=== PATIENT | male | born 1955 | race Caucasian/White ===

== ENCOUNTER 2020-03-15 16:30 | Inpatient (IN) | payer OTHER, SELFPAY ==
[~2020-03-15] VITALS: Ht 165.1 cm; Wt 71.7 kg
--- NOTE | 2020-03-15 16:36 | NUR ---
Patient to ER bed 07 to gown for evaluation. Side rails up.
--- NOTE | 2020-03-15 16:40 | NUR ---
ER at bedside examining patient.
--- NOTE | 2020-03-15 16:42 | NUR ---
pt arrives from via BLS from home for cough x 2 months, w/ orange sputum x 2 days. Pt states that his MD asked him to take Robitussin. Pt denies any fever. Arrived stating that he has a pain pump w/ med that about run out. Current o2 is 94% on RA
[2020-03-15 16:46] VITALS: BP_SYST 156
--- NOTE | 2020-03-15 16:50 | NUR ---
# 22 gauge angiocath placed to left hand. Use of asceptic technique. Opsite placed over site. Blood return noted. Blood for lab drawn from site. Flushed with 10 cc of normal saline. No evidence of infiltration noted. Patient tolerated well.
[2020-03-15] MEDS ORDERED: VANCOMYCIN HCL 1,000 MG in NS 250 ML IV ONE (17:00)
[2020-03-15] MEDS ORDERED: NACL 0.9% 2,000 ML IV ONE (17:00)
--- NOTE | 2020-03-15 17:30 | NUR ---
Levaquin and NS infusing
[2020-03-15 17:50] LABS: WHITE BLOOD COUNT (AUTO) 18.1 K/uL (4.8-10.8)
[2020-03-15 17:56] LABS: HEMATOCRIT 27.3 % (36-54); MEAN CORPUSCULAR HEMOGLOBIN 31 pg (27-31); MEAN CORPUSCULAR HGB CONC 33 % (32-36); MEAN CORPUSCULAR VOLUME 94 fL (79.0-98.0); RED BLOOD CELL COUNT(AUTO) 2.92 MIL/uL (4.2-6.2); RED CELL DISTRIBUTION WIDTH 16.8 % (9.0-15.0)
[2020-03-15 17:58] LABS: PLATELET COUNT (AUTO) 1065 K/uL (130-430)
[2020-03-15 17:59] LABS: CREATININE 0.6 mg/dL (0.55-1.30)
[2020-03-15 18:02] LABS: POTASSIUM 2.9 mmol/L (3.5-5.1)
[2020-03-15 18:04] LABS: ALBUMIN 1.9 g/dL (3.4-4.8); TOTAL BILIRUBIN 0.3 mg/dL (0.0-1.0)
[2020-03-15 18:13] LABS: BAND % (MANUAL) 1 % (0-6); BASOPHILS % (MANUAL) 0 % (0-2); EOSINOPHILS % (MANUAL) 0 % (0-7); LYMPHOCYTES % (MANUAL) 10 % (20-46); MONOCYTES % (MANUAL) 5 % (0-11)
[2020-03-15] MEDS ORDERED: KCL 20 mEq in 100 mL (PREMIX) 100 ML IV ONE (18:15)
[2020-03-15] MEDS ORDERED: VANCOMYCIN HCL 1000 MG/VIAL IV ONE (18:32)
[2020-03-15 18:40] LABS: BILIRUBIN,URINE NEGATIVE (NEGATIVE); BLOOD, URINE NEGATIVE (NEGATIVE); CLARITY/URINE CLEAR (CLEAR); COLOR,URINE YELLOW (YELLOW); GLUCOSE,URINE NEGATIVE (NEGATIVE); KETONES,URINE NEGATIVE (NEGATIVE); LEUKOCYTE ESTERASE ,URINE NEGATIVE (NEGATIVE); NITRITE, URINE NEGATIVE (NEGATIVE); PROTEIN URINE NEGATIVE (NEGATIVE); UROBILINOGEN,URINE 0.2 (0.2-1.0)
--- NOTE | 2020-03-15 18:40 | NUR ---
Nuzhato currently infusing
--- NOTE | 2020-03-15 18:40 | NUR ---
Dr. Osborne at the bedside doing a rectal exam
--- NOTE | 2020-03-15 18:47 | NUR ---
Alize currently infusing
--- NOTE | 2020-03-15 19:20 | NUR ---
Care endorsed to Zan MATOS
--- NOTE | 2020-03-15 19:32 | NUR ---
called for a tele bed. Spoke w/ Chucky GARCIA, who stated that the CN is getting report and will call back w/ a bed assignment
[2020-03-15] MEDS ORDERED: TIZA4TAB11 PO (19:36)
[2020-03-15] MEDS ORDERED: LOP600 PO (19:36)
[2020-03-15] MEDS ORDERED: VENL37.55 PO (19:36)
--- NOTE | 2020-03-15 19:36 | NUR ---
Medication reconciliation completed with information provided by pt. Any prior medication reconciliation on file was reviewed and corrected.
--- NOTE | 2020-03-15 20:49 | NUR ---
Transfer to Tele via ACLS protocol. Licensed nurse present. IV present no signs or symptoms of infiltration.
--- NOTE | 2020-03-15 20:49 | NUR ---
Patient will be admitted to care of Dr. Galicia. Admitted to Tele unit. Will go to room 125. Belongings list completed. Complete and up to date summary report printed. SBAR report to be given at bedside with opportunity for questions.
--- NOTE | 2020-03-15 20:49 | NUR ---
ADMIT NOTE Received pt from ER to the floor with a diagnosis of PNEUMONIA. Admission process initiated. patient oriented to pain management, safety and call light-teach back done.
[2020-03-15 21:00] VITALS: BP_SYST 139
--- NOTE | 2020-03-15 21:00 | NUR ---
OPENING NOTE PATIENT A0X4. NO SIGNS OF RESPIRATORY DISTRESS NOTED. DENIES PAIN AND DISCOMFORT. BREATHING EVEN AND UNLABORED. ON ROOM AIR TOLERATING WELL, O2 SATURATION OF 97%. IV SITE, PATENCY NOTED. CALL LIGHT WITHIN REACH. PATIENT WAS EDUCATED TO USE CALL LIGHT WHEN ASSISTANCE IS NEEDED, PATIENT ABLE TO VERBALIZED UNDERSTANDING. BED LOCKED AND IN LOWEST POSITION. REFUSED BED ALARM, PATIENT WAS EDUCATED ON PURPOSE OF BED ALARM, PATIENT ABLE TO VERBALIZED UNDERSTANDING BUT STILL REFUSED. PATIENT AMBULATORY WITH STEADY GAIT. NEEDS ATTENDED. ISOLATION AND SAFETY PRECAUTIONS IN PLACE. WILL CONTINUE TO MONITOR PATIENT
[2020-03-15] MEDS ORDERED: NALOXONE HCL 0.4 MG/ML AMP (NARCAN) IVP PRN (21:15)
[2020-03-15] MEDS ORDERED: POTASSIUM CHLORIDE 20 MEQ TAB.PRT.SR PO ONE (21:15)
[2020-03-15] MEDS: AZITHROMYCIN 500 MG in NS 250 ML IV SCH (21:55)
[2020-03-15] MEDS ORDERED: AZITHROMYCIN 500 MG/VIAL (ZITHROMAX) IV ONE (21:58)
[2020-03-15] MEDS ORDERED: PIPERACILLIN/TAZOBACTAM 3.375 GM/VIAL (ZOSYN) IV ONE (21:58)
[2020-03-15 22:02] VITALS: BP_SYST 148
--- NOTE | 2020-03-15 23:14 | NUR ---
SPOKE WITH DR. COLEMAN SPOKE WITH DR. COLEMAN. MADE AWARE THAT BASED ON ASSESSMENT, PATIENT IS SEPSIS RISK. MD GAVE NEW ORDER. READ BACK ORDER.
[2020-03-15] MEDS ORDERED: NACL 0.9% 1,000 ML IV ONE (23:15)
--- NOTE | 2020-03-15 23:30 | NUR ---
VITAL SIGNS/ IV FLUID BOLUS VITAL SIGNS TAKEN AT THIS TIME. PATIENT AWAKE, WATCHING TV. AOX4. NO SIGNS OF RESPIRATORY DISTRESS NOTED. DENIES PAIN AND DISCOMFORT. ON ROOM AIR TOLERATING WELL, O2 SATURATION OF 99%. NS BOLUS HUNG AT THIS TIME. PATIENT WAS EDUCATED ON PURPOSE AND BENEFITS OF OV IVF BOLUS, PATIENT ABLE TO VERBALIZED UNDERSTANDING. CALL LIGHT WITHIN REACH. SCD'S OPERATING WELL. SAFETY PRECAUTIONS IN PLACE. WILL CONTINUE TO MONITOR PATIENT
[2020-03-15] MEDS: PIPERACILLIN/TAZO 3.375/DEX-IS 50 ML IV SCH (23:32)
[2020-03-15 23:45] VITALS: BP_SYST 148
[2020-03-16] VITALS: BP_SYST 122
[2020-03-16] MEDS ORDERED: NACL 0.9% 1,000 ML IV ONE
--- NOTE | 2020-03-16 01:07 | NUR ---
RN ROUNDS PATIENT ASLEEP AT THIS TIME. NO SIGNS OF RESPIRATORY DISTRESS AND DISCOMFORT NOTED. BREATHING EVEN AND UNLABORED. ON ROOM AIR, TOLERATING WELL. IVF INFUSING WELL. CALL LIGHT WITHIN REACH. SAFETY AND ISOLATION PRECAUTIONS IN PLACE. WILL CONTINUE TO MONITOR PATIENT.
--- NOTE | 2020-03-16 02:09 | NUR ---
RN ROUNDS PATIENT ASLEEP AT THIS TIME. NO SIGNS OF RESPIRATORY DISTRESS AND DISCOMFORT NOTED. BREATHING EVEN AND UNLABORED. ON ROOM AIR, TOLERATING WELL. CALL LIGHT WITHIN REACH. SAFETY AND ISOLATION PRECAUTIONS IN PLACE. WILL CONTINUE TO MONITOR PATIENT.
--- NOTE | 2020-03-16 04:14 | NUR ---
RN ROUND PATIENT AWAKE, NO SIGNS OF RESPIRATORY DISTRESS NOTED. DENIES PAIN AT THIS TIME BUT VERBALIZED THE NEED OF BREATHING TREATMENT TO LOOSEN UP HIS COUGH. RESPIRATORY THERAPIST MADE AWARE AT THIS TIME. CALL LIGHT WITHIN REACH. SAFETY PRECAUTIONS IN PLACE. WILL CONTINUE TO MONITOR PATIENT.
[2020-03-16] MEDS: ALBUTEROL SULFATE 0.083% 2.5 MG/3 ML VIAL.NEB INH PRN ×2 (04:31→15:24)
[2020-03-16] MEDS: PIPERACILLIN/TAZO 3.375/DEX-IS 50 ML IV SCH ×4 (05:21→23:52)
[2020-03-16 06:27] LABS: BASOPHILS % (AUTO) 0.1 % (0.0-2.0); EOSINOPHILS % (AUTO) 0.1 % (0.0-4.0); HEMATOCRIT 26.9 % (36-54); LYMPHOCYTES # (AUTO) 2.1 K/uL (1.0-5.5); LYMPHOCYTES % (AUTO) 13.8 % (20.5-51.5); MEAN CORPUSCULAR HEMOGLOBIN 32 pg (27-31); MEAN CORPUSCULAR HGB CONC 34 % (32-36); MEAN CORPUSCULAR VOLUME 94 fL (79.0-98.0); MONOCYTES # (AUTO) 1.2 K/uL (0.0-1.0); MONOCYTES % (AUTO) 7.7 % (1.7-9.3); NEUTROPHILS # (AUTO) 11.7 K/uL (1.8-7.7); NEUTROPHILS % (AUTO) 78.3 % (40.0-70.0); RED BLOOD CELL COUNT(AUTO) 2.86 MIL/uL (4.2-6.2); RED CELL DISTRIBUTION WIDTH 16.5 % (9.0-15.0); WHITE BLOOD COUNT (AUTO) 14.9 K/uL (4.8-10.8)
--- NOTE | 2020-03-16 06:34 | NUR ---
CLOSING NOTE PATIENT AWAKE, WATCHING TV. NO SIGNS OF RESPIRATORY DISTRESS AND DISCOMFORT NOTED. BREATHING EVEN AND UNLABORED, ON ROOM AIR, TOLERATING WELL. IV SITE, PATENCY NOTED. CALL LIGHT WITHIN REACH. SAFETY AND ISOLATION PRECAUTIONS IN PLACE. ALL NEEDS MET THROUGHOUT THE SHIFT. WILL CONTINUE TO MONITOR PATIENT UNTIL ENDORSE TO ONCOMING SHIFT NURSE FOR CONTINUITY OF CARE.
[2020-03-16 07:11] LABS: ALBUMIN 1.7 g/dL (3.4-4.8); CALCIUM 8.3 mg/dL (8.4-11.0); CREATININE 0.58 mg/dL (0.55-1.30); TOTAL BILIRUBIN 0.3 mg/dL (0.0-1.0)
--- NOTE | 2020-03-16 07:15 | NUR ---
OPENING NOTE RECEIVED SBAR FROM NIGHT RN, PATIENT IN BED, RESPIRATIONS EVEN, NON LABORED, BED IN LOW AND LOCKED POSITION, CALL LIGHT WITHIN REACH
[2020-03-16 07:42] LABS: PLATELET COUNT (AUTO) 931 K/uL (130-430)
--- NOTE | 2020-03-16 07:50 | NUR ---
PAGEHeena MONTAÑO PAGEHeena DYSON REGARDING CRITICAL LABS, POTASSIUM 2.9 AND PLATELETS 931 SPOKE WITH ELIZABETH
[2020-03-16 07:52] LABS: POTASSIUM 2.9 mmol/L (3.5-5.1)
[2020-03-16 07:59] VITALS: BP_SYST 158
--- NOTE | 2020-03-16 08:02 | NUR ---
NURSE NOTE OBTAINED VS, PATIENT COMPLAINING OF THE NOISE FROM THE AIR SYSTEM BOTHERING HIM, EDUCATED PATIENT REGARDING THE NECESSITY OF AIR SYSTEM, PATIENT VERBALIZED UNDERSTANDING, COMPLAINING OF FEELING ANXIOUS, EDUCATED PATIENT REGARDING DEEP BREATHING, PATIENT REQUESTING SOMETHING FOR ANXIETY
--- NOTE | 2020-03-16 08:15 | NUR ---
NURSE NOTE PATIENT COMPLAINING OF GENERALIZED PAIN, REQUESTING MEDICATION, REPOSITIONED PATIENT,
[2020-03-16] MEDS: Effexor 37.5 MG TAB PO SCH ×3 (08:30→20:38)
[2020-03-16] MEDS: HYDROcodone/ACETAMIN 5-325 MG TAB (NORCO/ VICODIN) PO PRN ×2 (08:30→14:13)
[2020-03-16] MEDS: GEMFIBROZIL 600 MG TABLET (LOPID) PO SCH ×2 (08:30→20:38)
[2020-03-16] MEDS: tiZANidine HCL 4 MG TABLET PO SCH ×3 (08:30→20:56)
--- NOTE | 2020-03-16 08:45 | NUR ---
NURSE NOTE RT BEDSIDE WITH PATIENT
--- NOTE | 2020-03-16 09:00 | NUR ---
NURSE NOTE SPOKE WITH DR. DOUGLAS REGARDING PATIENTS CRITICAL LABS OF POTASSIUM 2.9 AND PLATELETS OF 931, NEW ORDERS RECEIVED
--- NOTE | 2020-03-16 09:00 | NUR ---
HIGH ALERT NOTE: Called Dr. Reyes back at [phone] identified within the medical roster to verify physician authenticity.
--- NOTE | 2020-03-16 09:21 | NUR ---
NURSE NOTE SPOKE WITH DR DOUGLAS REGARDING PATIENTS REQUEST FOR ANXIETY MEDICINE, NEW ORDERS RECEIVED
[2020-03-16] MEDS ORDERED: LORazepam 1 MG TABLET PO PRN (09:30)
[2020-03-16] MEDS: ENOXAPARIN SODIUM 40 MG/0.4 ML SYRINGE SUBCUT SCH (09:40)
[2020-03-16] MEDS ORDERED: POTASSIUM CHLORIDE 40 MEQ in NS 250 ML IV ONE (10:00)
--- NOTE | 2020-03-16 10:00 | NUR ---
NURSE NOTE PATIENT SITTING IN CHAIR, RESPIRATIONS EVEN, NON LABORED, ASSISTED PATIENT TO AMBULATE TO BED, ADMINISTERED MEDICATIONS, BED IN LOW AND LOCKED POSITION, CALL LIGHT WITHIN REACH
[2020-03-16 11:30] VITALS: BP_SYST 111
--- NOTE | 2020-03-16 11:30 | NUR ---
MD ROUNDS DR DOUGLAS BEDSIDE EXAMINING PATIENT
--- NOTE | 2020-03-16 12:30 | NUR ---
NURSE NOTE PROVIDED PATIENT WITH LUNCH, PATIENT COMPLAINING THAT IV SITE IS BURNING WITH POTASSIUM INFUSION, IV SITE IS PATENT, DECREASED RATE TO 60ML/HR, EDUCATED PATIENT REGARDING THE CORRECT USE OF INCENTIVE SPIROMETER, PATIENT VERBALIZED UNDERSTANDING, AND WAS ABLE TO DEMONSTRATE CORRECT USAGE
--- NOTE | 2020-03-16 13:08 | NUR ---
NURSE NOTE PATIENT HAS AN IMPLANTED MEDICATION PUMP ON LEFT LOWER QUADRANT, PAGED SYNOVATION [phone], TO FIND OUT WHAT MEDICATIONS ARE BEING INFUSED Addendum: 03/16/20 at 1313 by Irena Huang RN IMPLANT IS LOCATED IN THE RIGHT LOWER QUADRANT
--- NOTE | 2020-03-16 14:42 | NUR ---
nurse note spoke with patients sureshece, Pao, she does not know which medications as being given through the implant
--- NOTE | 2020-03-16 14:47 | NUR ---
DC ISOLATION INFORMED DR DOUGLAS OF PATIENTS TWO NEGATIVE COVID RESULTS, OK TO DC ISOLATION
--- NOTE | 2020-03-16 14:49 | NUR ---
NURSE NOTE NOTIFIED RT THAT PATIENT IS REQUESTING A BREATHING TX, LUNGS, CLEAR, NO SHORTNESS OF BREATH, O2 SATURATION 98 ON ROOM AIR
[2020-03-16 15:36] VITALS: BP_SYST 140
--- NOTE | 2020-03-16 15:52 | NUR ---
NURSE NOTE PATIENT IN BED, RESPIRATIONS EVEN, NON LABORED, BED IN LOW AND LOCKED POSITION, CALL LIGHT WITHIN REACH, EYES CLOSED, IVF'S RUNNING ORDERED
--- NOTE | 2020-03-16 16:20 | NUR ---
NURSE NOTE PATIENT IN BED, EYES CLOSED, RESPIRATIONS EVEN, NON LABORED, BED IN LOW AND LOCKED POSITION, CALL LIGHT WITHIN REACH,
--- NOTE | 2020-03-16 17:08 | NUR ---
Dietitian Recommendations * Recommend continuing cardiac diet * Consider Ensure Enlive BID if PO intakes are less than 75% on average (ONS offers an additional 700 kcal/day, 40 gm protein/day) UMANG, KYLER Please refer to Nutrition Assessment for details. Addendum: 03/16/20 at [address] Amended: Links added.
--- NOTE | 2020-03-16 17:45 | NUR ---
NURSE NOTE PROVIDED PATIENT WITH DINNER, PATIENT SITTING IN BED, RESPIRATIONS EVEN, NON LABORED, BED IN LOW AND LOCKED POSITION, CALL LIGHT WITHIN REACH, DENIES ANY PAIN OR DISCOMFORT
[2020-03-16 19:09] LABS: CALCIUM 8.6 mg/dL (8.4-11.0); CREATININE 0.79 mg/dL (0.55-1.30); PHOSPHORUS 2.8 mg/dL (2.7-4.5); POTASSIUM 3.5 mmol/L (3.5-5.1)
--- NOTE | 2020-03-16 19:14 | NUR ---
CLOSING NOTE PROVIDED BEDSIDE SBAR TO NIGHT RN, PATIENT IN BED, CONTINUES TO REMAIN NAKED, BED IN LOW AND LOCKED POSITION, CALL LIGHT WITHIN REACH, RESPIRATIONS EVEN, NON LABORED, IV FLUSHED FREELY, SALINE LOCKED. ENDORSED CARE TO NIGHT RN Addendum: 03/16/20 at 1916 by Irena Huang RN IVF'S RUNNING DIRECTED, NOT SALINE LOCKED Addendum: 03/16/20 at 1920 by Irena Huang RN ENTERED IN ERROR PATIENT IS IN GOWN, NOT NAKED
[2020-03-16 19:50] VITALS: BP_SYST 151
--- NOTE | 2020-03-16 19:50 | NUR ---
INITIAL NOTE AT INITIAL ASSESSMENT, PATIENT IS RESTING IN BED, STABLE, NO SIGNS OF RESPIRATORY DISTRESS. PATIENT VERBALIZES TOLERABLE CHRONIC PAIN. PLAN OF CARE FOR THE EVENING IS COMMUNICATED WITH THE PATIENT. PATIENT DEMONSTRATES CORRECT USAGE OF CALL LIGHT AT THIS TIME. BED IS LOCKED, ALARMED, AND AT THE LOWEST LEVEL. FALL SAFETY EDUCATION PROVIDED. FALL, SAFETY, AND RESPIRATORY PRECAUTIONS WILL BE TAKEN THROUGHOUT THE SHIFT.
--- NOTE | 2020-03-16 20:10 | NUR ---
PAIN PUMP CONTENTS / DR. MISTY JAY WHO USUALLY DEALS WITH PATIENT'S PAIN PUMP HAS CALLED AT THIS TIME TO CLARIFY THE CONTENTS OF THE PAIN PUMP: MORPHINE 15 MG/ML, PHENTANYL CITRATE 0.075 MG/ML, BACLOFEN 350 MCG/ML, AND CLONIDINE 100 MG/ML. CONTENTS WERE READ BACK, AND VERIFIED.
[2020-03-16] MEDS: AZITHROMYCIN 500 MG in NS 250 ML IV SCH (20:38)
--- NOTE | 2020-03-16 21:50 | NUR ---
MED PASS NOTE SCHEDULED MEDICATIONS GIVEN AT THIS TIME, PATIENT TOLERATED WELL. CALL LIGHT IS PLACED WITHIN REACH. BED IS LOCKED, ALARMED, AND AT THE LOWEST LEVEL.
--- NOTE | 2020-03-16 23:50 | NUR ---
NEW IV PLACEMENT PATIENT'S IV IS NOTED TO BE INFILTRATED, OLD IV IS D/C, CATHETER TIP INTACT, NO SIGNS OF ACTIVE BLEED. NEW IV IS PLACED ON PATIENT'S LEFT FOREARM #20 GAUGE, 10 MLS NS FLUSHED WITH NO RESISTANCE OR PAIN. IV IS CHECKED TO BE PATENT, SECURED, AND LABELED WITH DATE AND TIME OF INSERTION.
[2020-03-17] VITALS: BP_SYST 145
--- NOTE | 2020-03-17 01:00 | NUR ---
NOTE PATIENT IS SLEEPING, STABLE, NO SIGNS OF RESPIRATORY DISTRESS. CALL LIGHT IS WITHIN REACH. BED IS LOCKED, ALARMED, AND AT THE LOWEST LEVEL.
--- NOTE | 2020-03-17 03:00 | NUR ---
NOTE PATIENT IS SLEEPING, STABLE, NO SIGNS OF RESPIRATORY DISTRESS. CALL LIGHT IS WITHIN REACH. BED IS LOCKED, ALARMED, AND AT THE LOWEST LEVEL.
--- NOTE | 2020-03-17 03:30 | NUR ---
PAIN NOTE PATIENT IS COMPLAINING OF PAIN, PRN MEDICATION IS GIVEN AT THIS TIME FOR PATIENTS PAIN COMPLAINT PER MD ORDERS. WILL REASSESS IF PRN MEDICATION GIVEN WAS EFFECTIVE. CALL LIGHT PLACED WITHIN REACH. BED IS LOCKED, ALARMED, AND AT THE LOWEST LEVEL.
[2020-03-17] MEDS: ACETAMINOPHEN 325 MG TABLET PO PRN ×2 (03:31→20:15)
[2020-03-17] MEDS: PIPERACILLIN/TAZO 3.375/DEX-IS 50 ML IV SCH ×4 (05:08→23:54)
--- NOTE | 2020-03-17 05:30 | NUR ---
NOTE PATIENT IS SLEEPING, STABLE, NO SIGNS OF RESPIRATORY DISTRESS. CALL LIGHT IS WITHIN REACH. BED IS LOCKED, ALARMED, AND AT THE LOWEST LEVEL.
[2020-03-17 06:23] LABS: BASOPHILS % (AUTO) 0.2 % (0.0-2.0); EOSINOPHILS % (AUTO) 0.3 % (0.0-4.0); HEMATOCRIT 23.9 % (36-54); HEMOGLOBIN 7.8 g/dL (14.0-18.0); LYMPHOCYTES % (AUTO) 19.6 % (20.5-51.5); MEAN CORPUSCULAR HEMOGLOBIN 31 pg (27-31); MEAN CORPUSCULAR HGB CONC 33 % (32-36); MEAN CORPUSCULAR VOLUME 94 fL (79.0-98.0); MONOCYTES # (AUTO) 1.1 K/uL (0.0-1.0); MONOCYTES % (AUTO) 7.5 % (1.7-9.3); NEUTROPHILS # (AUTO) 11.2 K/uL (1.8-7.7); NEUTROPHILS % (AUTO) 72.4 % (40.0-70.0); RED BLOOD CELL COUNT(AUTO) 2.54 MIL/uL (4.2-6.2); RED CELL DISTRIBUTION WIDTH 16.7 % (9.0-15.0); WHITE BLOOD COUNT (AUTO) 15.4 K/uL (4.8-10.8)
[2020-03-17 06:27] LABS: ALBUMIN 1.5 g/dL (3.4-4.8); CALCIUM 8.4 mg/dL (8.4-11.0); CREATININE 0.73 mg/dL (0.55-1.30); PHOSPHORUS 2.9 mg/dL (2.7-4.5); POTASSIUM 4.1 mmol/L (3.5-5.1); TOTAL BILIRUBIN 0.2 mg/dL (0.0-1.0)
--- NOTE | 2020-03-17 06:35 | NUR ---
CLOSING NOTE PATIENT SLEPT WELL THROUGHOUT THE SHIFT, NO SHORTNESS OF BREATH NOTED. AT THIS TIME, PATIENT IS RESTING IN BED, STABLE, NO SIGNS OF RESPIRATORY DISTRESS. CALL LIGHT IS WITHIN REACH. BED IS LOCKED, ALARMED, AND AT THE LOWEST LEVEL. FALL, SAFETY, AND RESPIRATORY PRECAUTIONS HAVE BEEN TAKEN THROUGHOUT THE SHIFT. WILL CONTINUE TO MONITOR UNTIL SHIFT REPORT IS GIVEN AT BEDSIDE TO AM NURSE.
--- NOTE | 2020-03-17 07:26 | NUR ---
Opening Note patient in bed resting, a/o x 4, no signs of distress noted, IV line is patent and infusing well, safety measures put in place, bed locked and at low position, call light within reach, fall and aspiration precautions put in place, will monitor patient for any changes.
[2020-03-17 07:47] LABS: PLATELET COUNT (AUTO) 805 K/uL (130-430)
[2020-03-17 07:50] VITALS: BP_SYST 163
--- NOTE | 2020-03-17 09:35 | NUR ---
RN Rounds patient requesting to come back to administered medications.
[2020-03-17] MEDS: Effexor 37.5 MG TAB PO SCH ×3 (11:03→20:13)
[2020-03-17] MEDS: ENOXAPARIN SODIUM 40 MG/0.4 ML SYRINGE SUBCUT SCH (11:03)
[2020-03-17] MEDS: tiZANidine HCL 4 MG TABLET PO SCH ×3 (11:03→20:13)
[2020-03-17] MEDS: GEMFIBROZIL 600 MG TABLET (LOPID) PO SCH ×2 (11:03→20:13)
--- NOTE | 2020-03-17 11:05 | NUR ---
Patient left to radiology
[2020-03-17] MEDS ORDERED: IOHEXOL 350 mgI/mL, 150 ML INFUS..BTL IV ONE (11:17)
[2020-03-17 12:00] VITALS: BP_SYST 166
--- NOTE | 2020-03-17 13:39 | NUR ---
RN Rounds/Medication administered medication ordered per MD, patient tolerated well, no other needs at this time, safety measures maintained.
--- NOTE | 2020-03-17 15:02 | NUR ---
RN Rounds patient in bed awake and alert, no other needs at this time, will continue to monitor patient for any changes, safety measures maintained.
[2020-03-17 16:00] VITALS: BP_SYST 142
--- NOTE | 2020-03-17 18:06 | NUR ---
RN Rounds/Medication patient sitting up in bed, no distress noted, administered medication ordered per MD, patient tolerated well, safety measures maintained.
--- NOTE | 2020-03-17 19:25 | NUR ---
Closing Note patient in bed sitting up, no signs of distress noted, a/o x 4, safety measures maintained through out shift, patient care endorsed to route cdl driver nurse.
[2020-03-17 20:11] VITALS: BP_SYST 152
--- NOTE | 2020-03-17 20:15 | NUR ---
MED PASS PATIENT DUE MEDICATIONS GIVEN. VITAL SIGNS STABLE. MEDICATED WITH TYLENOL FOR C/O JOINT PAIN ON KNEES/SHOULDER/ELBOWS. VITAL SIGNS STABLE.
[2020-03-17] MEDS: AZITHROMYCIN 500 MG in NS 250 ML IV SCH (21:17)
--- NOTE | 2020-03-17 21:17 | NUR ---
ATB PATIENT DUE ANTIBIOTIC INFUSED. IV LINE INTACT AND PATENT.
[2020-03-17 23:57] VITALS: BP_SYST 142
--- NOTE | 2020-03-18 00:30 | NUR ---
ROUNDS PATIENT AWAKE WATCHING TV. NO C/O PAIN AT THIS TIME. DUE ANTIBIOTIC INFUSING. VITAL SIGNS STABLE.
[2020-03-18] MEDS: ACETAMINOPHEN 325 MG TABLET PO PRN (02:08)
--- NOTE | 2020-03-18 02:08 | NUR ---
PAIN MGT PATIENT MEDICATED WITH TYLENOL PER PATIENT REQUEST FOR C/O JOINT PAINS ON KNEES/ELBOWS/SHOULDERS.
[2020-03-18] MEDS: PIPERACILLIN/TAZO 3.375/DEX-IS 50 ML IV SCH ×4 (05:35→23:46)
--- NOTE | 2020-03-18 05:35 | NUR ---
ATB PATIENT DUE ANTIBIOTIC INFUSED. IV LINE INTACT. NO C/O PAIN AT THIS TIME.
--- NOTE | 2020-03-18 06:31 | NUR ---
CLOSING NOTES PATIENT AWAKE IN BED WATCHING TV. BREATHING UNLABORED ON ROOM AIR. BED IN LOWEST LOCKED POSITION. CALL LIGHT WITH IN REACH.
[2020-03-18 06:37] LABS: BASOPHILS % (AUTO) 0.4 % (0.0-2.0); EOSINOPHILS # (AUTO) 0.1 K/uL (0.0-0.4); HEMATOCRIT 25.6 % (36-54); HEMOGLOBIN 8.5 g/dL (14.0-18.0); LYMPHOCYTES # (AUTO) 3.4 K/uL (1.0-5.5); LYMPHOCYTES % (AUTO) 27.4 % (20.5-51.5); MEAN CORPUSCULAR HEMOGLOBIN 31 pg (27-31); MEAN CORPUSCULAR HGB CONC 33 % (32-36); MEAN CORPUSCULAR VOLUME 94 fL (79.0-98.0); MONOCYTES % (AUTO) 8.3 % (1.7-9.3); NEUTROPHILS # (AUTO) 7.8 K/uL (1.8-7.7); NEUTROPHILS % (AUTO) 62.9 % (40.0-70.0); RED BLOOD CELL COUNT(AUTO) 2.73 MIL/uL (4.2-6.2); RED CELL DISTRIBUTION WIDTH 16.7 % (9.0-15.0); WHITE BLOOD COUNT (AUTO) 12.4 K/uL (4.8-10.8)
[2020-03-18 07:01] LABS: ALBUMIN 1.7 g/dL (3.4-4.8); CALCIUM 8.7 mg/dL (8.4-11.0); CREATININE 0.64 mg/dL (0.55-1.30); POTASSIUM 3.5 mmol/L (3.5-5.1); TOTAL BILIRUBIN 0.2 mg/dL (0.0-1.0)
--- NOTE | 2020-03-18 07:25 | NUR ---
Opening Note patient in bed sitting up, no signs of distress noted, respirations even and unlabored, safety measures put in place, bed locked and at low position, call light within reach, fall and aspiration precautions put in place, will monitor patient for any changes.
--- NOTE | 2020-03-18 08:03 | NUR ---
CRITICAL LAB: Marium Cam from Laboratory called with critical lab value Plt [id number]. Read back of values done. Dr. Galicia notified of value. No orders given at this time.
[2020-03-18 08:10] VITALS: BP_SYST 140
[2020-03-18] MEDS: GEMFIBROZIL 600 MG TABLET (LOPID) PO SCH ×2 (09:16→20:19)
[2020-03-18] MEDS: tiZANidine HCL 4 MG TABLET PO SCH ×3 (09:16→20:19)
[2020-03-18] MEDS: Effexor 37.5 MG TAB PO SCH ×3 (09:16→20:20)
[2020-03-18] MEDS: ENOXAPARIN SODIUM 40 MG/0.4 ML SYRINGE SUBCUT SCH (09:17)
--- NOTE | 2020-03-18 09:18 | NUR ---
RN Rounds/Medications patient in bed sitting up, no signs of distress noted, administered medications as ordered per MD, patient tolerated well, no other needs at this time, safety precautions maintained.
[2020-03-18 09:49] LABS: PLATELET COUNT (AUTO) 833 K/uL (130-430)
--- NOTE | 2020-03-18 11:38 | NUR ---
MD Rounds Dr. Galicia at bedside.
[2020-03-18 12:19] VITALS: BP_SYST 127
--- NOTE | 2020-03-18 12:40 | NUR ---
CONSULTATION PAGED/CALLED Reason for Consultation: [] L LOCULATED EMPYEMA Person Who was Notified: [] DR ZAMAN ENTERED AND CONSULTED HIMSELF Consulting Physician: [] DR ZAMAN Land Classifier Specialty: [] GEN SURGEON Ordering Physician: [] DR Oksana ZAMAN
--- NOTE | 2020-03-18 13:13 | NUR ---
RN Rounds patient resting, respirations even and unlabored, no other needs at this time, will continue to monitor patient for any changes, safety measures maintained, call light within reach, bed locked and at low position.
[2020-03-18 13:31] LABS: INR 1.1 (0.80-1.20); PROTHROMBIN TIME 10.9 SECS (9.5-12.5)
[2020-03-18] MEDS: HYDROcodone/ACETAMIN 5-325 MG TAB (NORCO/ VICODIN) PO PRN ×2 (15:36→20:20)
--- NOTE | 2020-03-18 15:37 | NUR ---
Medication pass patient due medications administered, patient tolerated well, no signs of distress noted, safety measures maintained.
[2020-03-18 16:18] VITALS: BP_SYST 129
--- NOTE | 2020-03-18 17:28 | NUR ---
RN Rounds patient in bed sitting up resting, respirations even and unlabored, no needs at this time, bed locked and at low position, call light within reach.
--- NOTE | 2020-03-18 19:30 | NUR ---
Opening notes Received report. Patient is resting in bed, no signs of distress noted. Breathing even and unlabored on room air. IV patent and intact, no signs of infiltration noted. Updated patient on plan of care. Asked patient if Dr. Tidwell has spoke to him about his procedure tomorrow and if he wants to sign consent. Patient stated "he briefly spoke to me, I want to talk to him some more before I sign consent." Informed patient that if he is having surgery, he is to not have anything to eat or drink after midnight. Patient verbalized understanding. Patient requesting pain medications. Will administer. No other needs. Call light with the patient. Safety precautions in place.
--- NOTE | 2020-03-18 19:42 | NUR ---
Closing Note patient in bed sitting up, no signs of distress noted, a/o x 4, safety measures maintained through out shift, patient care endorsed to junk removal specialist nurse.
[2020-03-18 20:00] VITALS: BP_SYST 150
--- NOTE | 2020-03-18 20:30 | NUR ---
Medications scheduled and prn pain medications given. Education the action and side effects of [place]. Also education fall precautions as patient is ambulatory. Patient verbalized understanding and tolerated well. Informed patient that Dr. Tidwell has entered orders for surgery tomorrow and patient will be NPO after midnight. Patient verbalized understanding. No other needs at this time. Call light with the patient. Safety precautions in place.
--- NOTE | 2020-03-18 22:00 | NUR ---
Snack Patient provided with sandwich, juice, and coffee. No other needs at this time. Call light with the patient. Safety precautions in place.
[2020-03-19] VITALS: BP_SYST 141
[2020-03-19] MEDS: HYDROcodone/ACETAMIN 5-325 MG TAB (NORCO/ VICODIN) PO PRN ×2 (00:24→18:31)
--- NOTE | 2020-03-19 00:33 | NUR ---
Pain medication given. Educated the action and side effects of medications. Also educated patient on fall precautions. Patient verbalized understanding. Patient now NPO. Patient agreeable. No other needs. Call light with the patient. Safety precautions in place.
--- NOTE | 2020-03-19 02:30 | NUR ---
RN rounds Patient resting in bed, no signs of distress noted. Breathing even and unlabored on room air. Patient mentioned to RN "I noticed I haven't been peeing as much as I usually do, ever since 2 months ago when all this started. I can pee, just a little bit comes out." Patient in no acute distress. Will inform MD when they make rounds. No needs. Call light with the patient. Safety precautions in place.
--- NOTE | 2020-03-19 04:30 | NUR ---
RN rounds Patient sleeping. No signs of distress noted. Breathing even and unlabored on room air. No needs at this time. Call light with the patient. Safety precautions in place.
[2020-03-19] MEDS: PIPERACILLIN/TAZO 3.375/DEX-IS 50 ML IV SCH ×3 (05:44→18:32)
--- NOTE | 2020-03-19 06:57 | NUR ---
Closing notes Patient sleeping. No signs of distress noted. Breathing even and unlabored on room air. IV patent and intact, no signs of infiltration noted. All needs met throughout the shift. NPO status maintained. Call light with the patient. Safety precautions in place. Will endorse care to day shift RN.
[2020-03-19 07:50] VITALS: BP_SYST 159
--- NOTE | 2020-03-19 08:00 | NUR ---
Note Pt sitting on side of bed and denies any needs at this time. Pt aware he is NPO today for surgery this afternoon. No SOB/resp distress or pain/discomfort noted at this time. Tele unit attached and intact. IV in left forearm intact and patent at this time. Pt next to nurses' station for close observation for needs and care. Call light within reach.
[2020-03-19] MEDS: GEMFIBROZIL 600 MG TABLET (LOPID) PO SCH ×2 (08:11→20:48)
[2020-03-19] MEDS: ENOXAPARIN SODIUM 40 MG/0.4 ML SYRINGE SUBCUT SCH (08:11)
[2020-03-19] MEDS: tiZANidine HCL 4 MG TABLET PO SCH ×3 (08:11→20:48)
[2020-03-19] MEDS: Effexor 37.5 MG TAB PO SCH ×3 (08:11→20:48)
[2020-03-19 10:08] VITALS: BP_SYST 159
--- NOTE | 2020-03-19 10:55 | NUR ---
Note Pt was seen and assessed by Dr Aguilar at 0820am. Pt ambulatory in room and to the restroom with steady gait. Pt doing self hygiene care at bedside and sink independently. Pt was seen and assessed by Cat ORTIZ (Dr ZAMAN) at 0910am. Pt denies any needs at this time. Call light within reach.
[2020-03-19 12:20] VITALS: BP_SYST 148
--- NOTE | 2020-03-19 13:15 | NUR ---
Blood sotep=[id number] Addendum: 03/19/20 at 1317 by Kristin Damian RN Pt stated he was feeling very hungry and light headed.
--- NOTE | 2020-03-19 14:05 | NUR ---
Note Pt's niece Pao called at 0910am and 1350 for update on pt's status and surgery time. Pt's niece was also informed that pt was anxious about his cat in his apartment who is alone. Pt's niece stated she would try and find someone to look in the apt to check pt's cat's status. Pt was made aware that his niece would try and find someone to look in on the cat. Pt seemed to calm down a little. Call light within reach.
[2020-03-19] MEDS ORDERED: fentaNYL CITRATE/PF 100 MCG/2 ML AMP IVP PRN ×2 (15:00)
[2020-03-19] MEDS ORDERED: ONDANSETRON HCL 4 MG/2 ML VIAL IVP PRN (15:00)
--- NOTE | 2020-03-19 15:05 | NUR ---
Note Dr ZAMAN came to pt's room and spoke to pt about surgery that is going to be performed this afternoon at 1440. Pt signed consent for surgery at this time. Pt back in his room in bed. Call light within reach.
--- NOTE | 2020-03-19 15:40 | NUR ---
Note Pt off the floor via bed to surgery with chart on bed.
[2020-03-19 16:02] VITALS: BP_SYST 149
[2020-03-19] MEDS ORDERED: WATER FOR IRRIGATION,STERILE 1,000 ML IRRIG.SOLN IR ONE (16:12)
[2020-03-19] MEDS ORDERED: PROPOFOL 200MG/ 20ML VIAL (DIPRIVAN) IV ONE (16:12)
[2020-03-19] MEDS ORDERED: MIDAZOLAM HCL 5 MG/5 ML VIAL IVP ONE (16:12)
[2020-03-19] MEDS ORDERED: BUPIVACAINE /EPINEPHRINE/PF 0.5% 30 ML VIAL INJ ONE (16:12)
[2020-03-19] MEDS ORDERED: LR 1,000 ML IV.SOLN IV ONE (16:12)
[2020-03-19] MEDS ORDERED: NS IRRIG SOLN 1000 ML IR ONE (16:12)
[2020-03-19] MEDS ORDERED: ACETAMINOPHEN 325 MG TABLET PO PRN ×2 (16:45)
--- NOTE | 2020-03-19 18:45 | NUR ---
Note Pt returned to floor via bed from PACU at 1715 with left chest tube insertion. Tele unit was reattached and intact at this time. IV in left hand intact and patent infusing IVF's well. Pt got OOB 2X to void in urinal. Pt encouraged to use IS q1' 10X while awake. Pt given clear liquids diet at this time. Left chest tube insertion site intact and no bleeding/drainage noted. Chest tube canister on the floor at left side of bed. Clamps for chest tube at HOB on the wall. Pt tolerated clear liquids diet and [place] PO tablet given for moderate headache since arrival from surgery. No SOB/resp distress or pain/discomfort noted at this time. Pt's daughter Annamarie came to javascript front end developer/lobby to collect pt's home keys - to check on pt's cat. Call light within reach.
--- NOTE | 2020-03-19 19:20 | NUR ---
Opening notes Received report. Patient is resting in bed, no signs of distress noted. Breathing even and unlabored, on room air. Patient complains of slight headache. PRN pain medication previous administered. Water seal chest tube in place at left side. Dressing is CDI. Suction @ 20 mmHg. Water level @ 20cm. Continuous bubbling noted in water seal. Brown drainage noted in collection chamber. IV patent and intact. Patient provided with sandwiches. No other needs. Call light with the patient. Safety precautions in place. Addendum: 03/19/20 at 2356 by Megan Vargas RN CORRECTION: Continuous bubbling noted in suction control chamber. No bubbling in water seal.
--- NOTE | 2020-03-19 19:26 | NUR ---
Call from Dr. Jeff Rojas ordered for TPA to be administered via chest tube. Per [employer], there is no protocol or policy for administering any medications through chest tubes. Also informed MD, the dose he ordered is too much per hospital pharmacist. Number provided to pharmacist to talk to . MD will come in tomorrow around noon to administer medication.
[2020-03-19] MEDS ORDERED: ALTEPLASE 2 MG VIAL MC SCH (19:45)
[2020-03-19 20:00] VITALS: BP_SYST 158
--- NOTE | 2020-03-19 21:00 | NUR ---
Medications given. Educated the action and side effects of Lopid. Patient verbalized understanding and tolerated well. Patient ate sandwich. No other needs. Call light with the patient. Safety precautions in place.
[2020-03-19] MEDS: ONDANSETRON HCL 4 MG/2 ML VIAL IVP PRN (21:43)
--- NOTE | 2020-03-19 21:43 | NUR ---
Nausea Patient complaining of nausea, PRN nausea medication given. Educated the action and side effects of medications. Educated patient that his nausea may have been from eating. Informed patient to take it slower next time he wants to eat. Patient feeling a little better after administering Zofran. Chest tube in place, water seal noted with continuous bubbling @ 20 mmHg. Water level 20 cm. No leaks. No other needs. Call light with the patient. Safety precautions in place. Addendum: 03/19/20 at 2358 by Megan Vargas RN CORRECTION: Suction control chamber noted with continuous bubbling @ 20 mmHg.
[2020-03-20] VITALS: BP_SYST 147
--- NOTE | 2020-03-20 00:30 | NUR ---
Pain Patient complaining of pain. PRN pain medication given. Educated the action and side effects of medication. Patient verbalized understanding and tolerated well. Patient no longer complains of nausea. No other needs. Call light with the patient. Safety precautions in place. Chest tube with bubbling noted in continuous suction chamber. No water leak in seal. Suction @ 20 mmHg. Brown drainage noted.
[2020-03-20] MEDS: PIPERACILLIN/TAZO 3.375/DEX-IS 50 ML IV SCH ×4 (00:36→17:21)
[2020-03-20] MEDS: HYDROcodone/ACETAMIN 5-325 MG TAB (NORCO/ VICODIN) PO PRN ×2 (00:37→05:58)
--- NOTE | 2020-03-20 02:30 | NUR ---
RN rounds Patient resting in bed, no signs of distress noted. Breathing even and unlabored on room air. Provided with jello and juice. Reminded patient to eat slowly. Patient verbalized understanding. Call light with the patient. Safety precautions in place.
--- NOTE | 2020-03-20 04:30 | NUR ---
RN rounds Patient is resting in bed, no signs of distress noted. Breathing even and unlabored on room air. Chest tube noted with continuous bubbling in suction control chamber. No leaks. Suction at 20 mmHg at 20 cm. No needs. Call light with the patient. Safety precautions in place.
[2020-03-20] MEDS: MORPHINE 4 MG/ML INJ. SYRINGE IVP PRN ×3 (07:08→20:24)
--- NOTE | 2020-03-20 07:11 | NUR ---
Closing notes Patient complaining of severe pain despite given [place] previously. PRN morphine given. Educated the action and side effects of medication. Also educated fall precautions. Patient verbalized understanding. No signs of distress noted. Breathing even and unlabored on room air. Left chest tube in place to suction at 20 mmHg at 20 cm. Continuous bubbling noted in suction chamber. No water leak. 400 ml of brown drainage obtained throughout shift. All needs met throughout the shift. Call light with the patient. Safety precautions in place. Will endorse care to day shift RN.
[2020-03-20 07:57] VITALS: BP_SYST 152
--- NOTE | 2020-03-20 08:00 | NUR ---
Note Pt sitting up in bed eating his breakfast. IV in left hand intact and patent at this time. No SOB/resp distress or pain/discomfort noted at this time. Tele unit attached and intact. Left wall chest tube intact and draining to wall suction at this time. Pt next to nurses' station for close observation for needs and care. Call light within reach.
[2020-03-20] MEDS: ENOXAPARIN SODIUM 40 MG/0.4 ML SYRINGE SUBCUT SCH (08:48)
[2020-03-20] MEDS: GEMFIBROZIL 600 MG TABLET (LOPID) PO SCH ×2 (08:51→20:24)
[2020-03-20] MEDS: tiZANidine HCL 4 MG TABLET PO SCH ×3 (08:51→20:24)
[2020-03-20] MEDS: Effexor 37.5 MG TAB PO SCH ×3 (08:51→20:24)
[2020-03-20] MEDS ORDERED: ALTEPLASE 2 MG VIAL MC SCH ×3 (09:00→16:27)
--- NOTE | 2020-03-20 10:20 | NUR ---
Note Dr Galicia on the floor to assess pt.
[2020-03-20 11:54] LABS: BASOPHILS # (AUTO) 0.1 K/uL (0.0-0.2); BASOPHILS % (AUTO) 0.4 % (0.0-2.0); EOSINOPHILS % (AUTO) 0.3 % (0.0-4.0); HEMATOCRIT 27.6 % (36-54); LYMPHOCYTES # (AUTO) 2.5 K/uL (1.0-5.5); LYMPHOCYTES % (AUTO) 16.6 % (20.5-51.5); MEAN CORPUSCULAR HEMOGLOBIN 31 pg (27-31); MEAN CORPUSCULAR HGB CONC 32 % (32-36); MEAN CORPUSCULAR VOLUME 95 fL (79.0-98.0); MONOCYTES # (AUTO) 0.8 K/uL (0.0-1.0); MONOCYTES % (AUTO) 5.3 % (1.7-9.3); NEUTROPHILS # (AUTO) 11.8 K/uL (1.8-7.7); NEUTROPHILS % (AUTO) 77.4 % (40.0-70.0); RED BLOOD CELL COUNT(AUTO) 2.92 MIL/uL (4.2-6.2); RED CELL DISTRIBUTION WIDTH 16.3 % (9.0-15.0); WHITE BLOOD COUNT (AUTO) 15.3 K/uL (4.8-10.8)
--- NOTE | 2020-03-20 12:00 | NUR ---
Note Pt sitting up in bed eating his lunch. Left chest tube site benign and draining well at this time. Pt denies any needs at this time. Call light within reach.
[2020-03-20 12:01] LABS: CALCIUM 8.7 mg/dL (8.4-11.0); CHLORIDE 101 mmol/L (98-107); CREATININE 0.66 mg/dL (0.55-1.30); GLUCOSE 132 mg/dL (70-99); POTASSIUM 3.2 mmol/L (3.5-5.1); SODIUM SERUM 137 mmol/L (136-145); UREA NITROGEN, BLOOD 8 mg/dL (8-21)
[2020-03-20 12:06] LABS: ALANINE AMINOTRANSFERASE 23 U/L (12-78); ALBUMIN 1.7 g/dL (3.4-4.8); ANION GAP < 3 (5-15); ASPARTATE AMINOTRANSFERASE 16 U/L (10-37); GFR AFRICAN AMERICAN 156 mL/min (>90); TOTAL BILIRUBIN 0.2 mg/dL (0.0-1.0)
[2020-03-20 12:17] LABS: PLATELET COUNT (AUTO) 906 K/uL (130-430)
[2020-03-20 12:36] VITALS: BP_SYST 137
[2020-03-20] MEDS ORDERED: COMMUNICATION ORDER XX ONE ×2 (13:30→16:30)
--- NOTE | 2020-03-20 13:30 | NUR ---
Note Dr Aguilar (pul) came and administered Cathflo (altapase) in pt's chest tube at 1315. Pt is lying supine at this time (for 2 hours). No bleeding/drainage noted at this time. Pt's chest tube is clamped (for 2 hours) and wall suction stopped. Pt was resting in bed at this time.
--- NOTE | 2020-03-20 13:50 | NUR ---
Note Pt was given Morphine 4mg IVP at this time as pt is in supine position and cannot sit up to take [place] PO tabs. Pt working on his cell phone in supine position. Pt denies any needs at this time.
--- NOTE | 2020-03-20 15:15 | NUR ---
Note Clamp on chest tube was dc'd and wall suction was started at this time. No bleeding at chest tube site noted. Dressing CDI at this time. Call light within reach.
[2020-03-20 16:25] VITALS: BP_SYST 144
--- NOTE | 2020-03-20 17:15 | NUR ---
Note Pt back from CT dept. Pt left the floor at 1650 via wheelchair and chest tube container. Pt reconnected to wall suction and levels in container were checked at this time. Pt has no SOB/resp distress.
--- NOTE | 2020-03-20 18:35 | NUR ---
Note Pt has been standing on side of bed all shift to void in urinal. No SOB/resp distress or pain/discomfort noted all shift. Tele unit attached and intact. IV in left hand intact and patent. Pt was checked on q1' and PRN all shift for needs and care. Pt was maintained with safety precautions all shift. Chest tube site dressing CDI at this time. Wall suction WNL and drainage brown all shift. No needs noted at this time. Call light within reach.
[2020-03-20 19:00] VITALS: BP_SYST 139
--- NOTE | 2020-03-20 19:15 | NUR ---
change of shift.pt.presents quiescent affect;calm,resting viewing tv programming.pt.presents chest-tube:location:lt.axilla;tube intact;patent chest tube collection chamber operating:connection to suction.pt.presents iv access intact;patent iv fluids ns- infusing.pt.utilizing the urinal:w/in access of the pt.
[2020-03-20 20:00] VITALS: BP_SYST 139
--- NOTE | 2020-03-20 20:00 | NUR ---
pt.assessed.v/s assessed values w/in normal limits.pt.inquired re;medication;pain and if due.i am to review the emar med-list. re;pain medication.i have assessed the chest tube;intact;patent collection chamber operating.level noted@800ml.collection chamber connection to suction.pt.utilizing the urinal.i have attended to the urinal:measured/cleaned placed w/in access of the pt.i inquired if the pt.would prefer a bsc;pt.stated yes i have provided the bsc.placed w/in access of the pt.i have apprised the pt.that snacks/beverages are available w/in the shift. pt.stated possible in a while.pt.capable to reposition self/ambulate.call light/telephone w/in access of the pt.
--- NOTE | 2020-03-20 20:30 | NUR ---
pt.requested medication;pain.i have administered morphine:4mg ivp.to assess the efficacy of the pain medication per pain mgx protocol.pt.requested snacks/juice.i have provided the snacks/juice.
--- NOTE | 2020-03-20 21:00 | NUR ---
2100pmedications administered.pt.capable to ingest the po medication w/out difficulty.
[2020-03-21] VITALS: BP_SYST 123
--- NOTE | 2020-03-21 | NUR ---
pt.assessed.v/s assessed values w/in normal limits.no c/o pain,nausea.chest tube;lt.axilla assessed in place.chest tube drainage chamber operating.iv access intact;patent ns-flush infusing.i have administered zosyn;abx;ivpb midnight dose.i have attended to the urinal.measured/cleaned placed w/in access of the pt.general status stable;respiratory status stable;unlabored.call light/telephone w/in access of the pt.
[2020-03-21] MEDS: PIPERACILLIN/TAZO 3.375/DEX-IS 50 ML IV SCH ×4 (00:22→17:09)
--- NOTE | 2020-03-21 00:30 | NUR ---
pt.requested medication;pain.i have administered morphine:4mg ivp.to assess the efficacy of the pain medication per pain mgx protocol.
[2020-03-21] MEDS: MORPHINE 4 MG/ML INJ. SYRINGE IVP PRN ×2 (00:31→22:20)
--- NOTE | 2020-03-21 02:00 | NUR ---
pt.assessed.pt.presents quiescent affect;calm,somnolent.per flacc pain mgx pt.absent facial grimaces/body posturing.chest tube intact;patent chest tube drainage chamber operating.i have attended to the urinal:measured/cleaned placed w/in access of the pt.iv access intact;patent iv fluids infusing.pt.capable to reposition self.general status stable.respiratory status stable;unlabored.call light/telephone w/in access of the pt.
--- NOTE | 2020-03-21 04:00 | NUR ---
pt.assessed.pt.presents quiescent affect;calm,somnolent.per flacc pain mgx pt.absent facial grimaces/body posturing.iv access intact;patent iv fluids infusing.chest tube:lt.axilla intact;patent chest tube collection chamber operating.i have attended to the urinal:measured/cleaned placed w/in access of the pt.general status stable.respiratory status stable;unlabored.pt.capable to repositioned self.call light/telephone w/in reach of the pt.
[2020-03-21] MEDS: HYDROcodone/ACETAMIN 5-325 MG TAB (NORCO/ VICODIN) PO PRN ×4 (06:37→20:21)
--- NOTE | 2020-03-21 06:41 | NUR ---
pt.assessed.pt.requested medication;pain.i have administered norco:5/325mg 1 tab po.2/t the pain intensity status.i have administered zosyn abx;ivpb 0600a dose.chest tube assessed intact;patent collection chamber connected to suction;[id number].i have attended to the urinal;measured/cleaned placed w/in access of the pt.pt.requested snacks/juice.i have provided the food.juice items.general status stable.respiratory status stable;unlabored.call light/telephone w/in access of the pt.
--- NOTE | 2020-03-21 07:45 | NUR ---
Opening note patient resting in bed, a/ox4, denies pain, no distress, noted mild wheezing on auscultation, patient is on room air, chest tube intact, to suction per MD orders, patient tolerating well, IV line is patent and infusing well, educated patient on plan of care and call light system, he verbalized understanding, bed in lowest position, two side rails up, call light within reach, fall and aspiration precautions in place.
[2020-03-21 08:31] VITALS: BP_SYST 157
[2020-03-21] MEDS: GEMFIBROZIL 600 MG TABLET (LOPID) PO SCH ×2 (08:42→20:19)
[2020-03-21] MEDS: tiZANidine HCL 4 MG TABLET PO SCH ×3 (08:42→20:19)
[2020-03-21] MEDS: ENOXAPARIN SODIUM 40 MG/0.4 ML SYRINGE SUBCUT SCH (08:43)
--- NOTE | 2020-03-21 08:45 | NUR ---
Medication patient resting in bed, awake, denies pain, educated on medications uses and potential side effects, he verbalized understanding and tolerated well, continuing to monitor patient, chest tube intact, bed in lowest position, two side rails up, call light within reach, fall and aspiration precautions in place, bed close to nursing station.
[2020-03-21] MEDS: Effexor 37.5 MG TAB PO SCH ×3 (10:04→20:19)
--- NOTE | 2020-03-21 10:43 | NUR ---
RN Rounds/Pain patient resting in bed, awake, asking for pain medication, educated on pain management and pain medication uses and potential side effects, he verbalized understanding and tolerated well, no other needs at this time, continuing to monitor, bed in lowest position, two side rails up, call light within reach, fall and aspiration precautions in place, chest tube intact to suction.
[2020-03-21 12:00] VITALS: BP_SYST 132
--- NOTE | 2020-03-21 12:30 | NUR ---
RN rounds patient sitting on edge of bed, eating lunch, chest tube intact, patient has no shortness of breath, no distress, educated on IV antibiotic uses and potential side effects, he verbalized understanding, IV line is patent and infusing well, continuing to monitor patient, bed in lowest position, two side rails up, call light within reach, fall and aspiration precautions in place.
--- NOTE | 2020-03-21 13:56 | NUR ---
Nutrition F/U RD reviewed pt's current EMR record including diet Hx, physician notes, nursing notes, pertinent labs/meds/procedures, care trends, and care activity. Admission Dx: Pneumonia PMH: depression, chronic pain, liver tumor removal, dyslipidemia per physician notes Pt also found w/ respiratory failure, hypokalemia, and severe malnutrition per physician notes SARS-CoV-2 Ag (Rapid) Negative 03/15 SARS-CoV-2 (PCR) Negative 03/15 Pt is POD 2 s/p L chest tube placement 03/19 per EMR review Current Diet Order/Nutrition Support: Regular x1 day Subjective Info: RD met w/ pt at bedside. Pt reported that his appetite seems to be coming back. Pt appeared to have poor dentition -- appeared to be rotting teeth. Pt reported no dentures/partials. RD offered food-texture modifications, however, pt reported that he has been fine w/ current texture of foods. Pt was not interested in ONS or snacks. Pt stated he is comfortable w/ standard meals provided to him at meal times. RD encouraged pt to continue to eat well to meet nutritional demands. Pt appreciative. Pt denied any supplement use [employer]. Anthropometrics verified. No food allergies reported. Current diet remains adequate/appropriate. No nutrition-related questions/concerns from pt at this time. Nutrition education declined. Pertinent Medications Reviewed Pertinent Labs Reviewed Skin Integrity Comment: Antony scale: 19; per nursing notes, L axilla w/ chest tube insertion site; non-pitting edema to BLE Current % PO 93% average x7 meals Estimated Energy Expenditure (kcals/day) 8234-2800 kcal/day (30-35 kcal/kg CBW for acute state) Estimated Protein Required (g/day) 86-108 gm/day (1.2-1.5 gm/kg CBW for acute state) Estimated Fluid Required (l/day) 2.2-2.5 L/day (1 ml/kcal/day for maintenance) Problem/Etiology/Signs/Symptoms Increased nutritional needs related to metabolic demands as evidenced by estimated nutritional requirements for acute state. *ongoing, met w/ current good PO intakes Expected Outcomes/Goals - Monitor appetite and PO intakes w/ goal of pt meeting at least 75% of estimated nutritional needs, labs trending WNL, normal GI function, and skin integrity/wt maintenance Dietitian Recommendations * Recommend continuing regular diet Follow Up Low Risk: F/U in 7 days
--- NOTE | 2020-03-21 14:01 | NUR ---
Dietitian Recommendations * Recommend continuing regular diet LP, RD Please refer to Nutrition F/U for details.
[2020-03-21] MEDS: ALTEPLASE 2 MG VIAL MC SCH (14:06)
--- NOTE | 2020-03-21 14:40 | NUR ---
Dr. Aguilar did Alteplase procedure on chest tube at this time, clamp for 2 hours and have patient change position, patient verbalized understanding, patient tolerated procedure well. Addendum: 03/21/20 at 1641 by Murray Chapa RN Unclamped chest tube - continued on continuous suction at this time, patient tolerating well, no shortness of breath, no distress.
--- NOTE | 2020-03-21 14:55 | NUR ---
Pain/Medication patient resting in bed, awake, no shortness of breath, no distress, educated on PRN and scheduled medications uses and potential side effects, he verbalized understanding and tolerated well, no other needs at this time, continuing to monitor, bed in lowest position, two side rails up, call light within reach, fall and aspiration precautions in place.
[2020-03-21] MEDS ORDERED: POLYETHYLENE GLYCOL 3350, 17 GM/ POWD.PACK PO ONE (15:00)
--- NOTE | 2020-03-21 15:38 | NUR ---
Offered Miralax educated patient on uses, benefits and potential side effects, he verbalized understanding and states,"maybe later on I will take it." Will follow up.
[2020-03-21 16:08] VITALS: BP_SYST 129
--- NOTE | 2020-03-21 17:10 | NUR ---
RN rounds patient resting in bed, awake, denies pain, no shortness of breath, no signs of distress, IV antibiotic hung and infusing well, IV line is patent no s/s of infiltration, chest tube intact, no signs of air leak, continuing to monitor, bed in lowest position, two side rails up, call light within reach, fall and aspiration precautions in place.
--- NOTE | 2020-03-21 18:41 | NUR ---
Closing note patient resting in bed, awake, eating dinner, aspiration precautions in place, chest tube to continuous suction and IV line intact, patient denies shortness of breath, all needs met, will endorse report to NOC shift nurse, bed in lowest position, two side rails up, call light within reach, fall and aspiration precautions in place.
--- NOTE | 2020-03-21 19:27 | NUR ---
OPENING NOTE PATIENT A0X4. NO SIGNS OF RESPIRATORY DISTRESS NOTED. VERBALIZED 5/10 PAIN IN THE CHEST TUBE INCISION, WILL ADMINISTER PAIN MEDICATION. CHEST TUBE IN PLACE, BUBBLING, PATENCY AND NO AIR LEAK NOTED. PATIENTS' BREATHING EVEN AND UNLABORED. ON ROOM AIR TOLERATING WELL, O2 SATURATION OF 98%. IV SITE, PATENCY NOTED. CALL LIGHT WITHIN REACH. PATIENT WAS EDUCATED TO USE CALL LIGHT WHEN ASSISTANCE IS NEEDED, PATIENT ABLE TO VERBALIZED UNDERSTANDING. BED LOCKED AND IN LOWEST POSITION. BED ALARM ON. NEEDS ATTENDED. SAFETY PRECAUTIONS IN PLACE. WILL CONTINUE TO MONITOR PATIENT
[2020-03-21 20:00] VITALS: BP_SYST 112
--- NOTE | 2020-03-21 20:19 | NUR ---
MED PASS/ OFFERED MIRALAX DUE MEDICATION AND PAIN MEDICATION GIVEN AT THIS TIME, PATIENT TOLERATED WELL. PATIENT WAS EDUCATED ON THE MEDICATION THAT WAS GIVEN FOR ITS PURPOSE, SIDE EFFECT AND BENEFITS. PATIENT ABLE TO VERBALIZED UNDERSTANDING. PRN MIRALAX WAS OFFERED AT THIS TIME. PATIENT WAS EDUCATED ON PURPOSE AND BENEFITS OF MIRALAX, PATIENT ABLE TO VERBALIZED UNDERSTANDING BUT REFUSED AT THIS TIME, PATIENT VERBALIZED '' I WILL DRINK IT TOMORROW''. WILL CONTINUE TO ENCOURAGE. CALL LIGHT WITHIN REACH. SAFETY PRECAUTIONS IN PLACE. WILL CONTINUE TO MONITOR PATIENT
[2020-03-21] MEDS: SENNOSIDES/DOCUSATE SODIUM 1 TAB TABLET(SENOKOT-S) PO SCH (20:20)
--- NOTE | 2020-03-21 23:58 | NUR ---
RN ROUNDS PATIENT ASLEEP AT THIS TIME. NO SIGNS OF RESPIRATORY DISTRESS AND DISCOMFORT NOTED. BREATHING EVEN AND UNLABORED. ON ROOM AIR, TOLERATING WELL. CHEST TUBE IN PLACE, OPERATING WELL. CALL LIGHT WITHIN REACH. SAFETY PRECAUTIONS IN PLACE. WILL CONTINUE TO MONITOR PATIENT.
[2020-03-22 00:23] VITALS: BP_SYST 127
[2020-03-22] MEDS: PIPERACILLIN/TAZO 3.375/DEX-IS 50 ML IV SCH ×5 (00:39→23:36)
[2020-03-22] MEDS: HYDROcodone/ACETAMIN 5-325 MG TAB (NORCO/ VICODIN) PO PRN ×3 (02:20→20:30)
--- NOTE | 2020-03-22 06:40 | NUR ---
CLOSING NOTE PATIENT ASLEEP AT THIS TIME. NO SIGNS OF RESPIRATORY DISTRESS NOTED. BREATHING EVEN AND UNLABORED. ON ROOM AIR TOLERATING WELL, O2 SATURATION OF 98%. CHEST TUBE IN PLACE, OPERATING WELL. BUBBLING, PATENCY AND NO AIR LEAK NOTED. IV SITE, PATENCY NOTED. CALL LIGHT WITHIN REACH. BED LOCKED AND IN LOWEST POSITION. BED ALARM ON. ALL NEEDS MET THROUGHOUT THE SHIFT. WILL CONTINUE TO MONITOR PATIENT UNTIL ENDORSE TO ONCOMING SHIFT NURSE FOR CONTINUITY OF CARE.
[2020-03-22 07:57] VITALS: BP_SYST 151
--- NOTE | 2020-03-22 08:00 | NUR ---
Note Pt sitting up in bed with left chest tube intact to wall suction. No SOB/resp distress or pain/discomfort noted at this time. Tele unit attached and intact. IV in left hand intact and patent infusing IVF's well. No needs noted at this time. Call light within reach.
[2020-03-22 08:31] VITALS: BP_SYST 151
[2020-03-22] MEDS: ENOXAPARIN SODIUM 40 MG/0.4 ML SYRINGE SUBCUT SCH (09:00)
[2020-03-22] MEDS: tiZANidine HCL 4 MG TABLET PO SCH ×3 (09:04→20:31)
[2020-03-22] MEDS: POLYETHYLENE GLYCOL 3350, 17 GM/ POWD.PACK PO SCH (09:05)
[2020-03-22] MEDS: Effexor 37.5 MG TAB PO SCH ×3 (09:05→20:30)
[2020-03-22] MEDS: GEMFIBROZIL 600 MG TABLET (LOPID) PO SCH ×2 (09:05→20:31)
--- NOTE | 2020-03-22 11:15 | NUR ---
Note Pt asleep in bed at this time. Pt sat up in BSC for a while, no bowel movement noted at this time. IVF's infusing through left hand IV site. No needs noted at this time. Call light within reach.
[2020-03-22 12:00] VITALS: BP_SYST 134
[2020-03-22] MEDS: ALTEPLASE 2 MG VIAL MC SCH (14:37)
--- NOTE | 2020-03-22 14:56 | NUR ---
CONSULTATION: REASON FOR CONSULT: EMPYEMA CONSULTING PHYSICIAN: SHRUTI WALKER MD ORDERED BY: MARK GONZÁLES MD SPOKE WITH CHEPE [phone]
--- NOTE | 2020-03-22 15:00 | NUR ---
Note Dr Aguilar (pulm) came to pt's bedside to inject Cathflo into left chest tube at bedside at 1430. Pt tolerated procedure and [place] PO 1 tab was given for pain at this time as well. Pt denies any SOB/resp distress or any other breathing difficulties. Pt aware he has to stay supine for 2 hours till 1635. No needs noted at this time. Call light within reach.
--- NOTE | 2020-03-22 15:08 | NUR ---
Note Pt got OOB to stand on the side of bed to void in urinal. Pt does not follow instruction of staying supine in bed for 2 hours. Bed alarm on and bed in low position all shift. Pt states he has to void urgently and cannot lie in bed and void. RN at pt's side to keep pt safe.
--- NOTE | 2020-03-22 15:20 | NUR ---
NOTE Dr Chew called and asked for update and history of pt. Dr Chew stated he would come and see pt tomorrow.
[2020-03-22 16:00] VITALS: BP_SYST 132
--- NOTE | 2020-03-22 18:10 | NUR ---
Note Pt sitting up in bed eating his dinner. No SOB/resp distress or pain/discomfort noted at this time. Tele unit attached and intact at this time. IV in left hand intact and patent. Pt has been getting OOB independently to stand on side of bed to void throughout the shift. Pt was checked on q1' and PRN all shift for needs and care. Pt was maintained with safety precautions all shift. No needs noted at this time. Left chest tube intact and draining well on wall suction. Call light within reach.
--- NOTE | 2020-03-22 19:15 | NUR ---
OPENING NOTE/REFUSES BED ALARM BEDSIDE REPORT RECEIVED FROM DAYSHIFT NURSE. PATIENT RECEIVED LYING IN BED, NO S/S OF ACUTE DISTRESS NOTED. BREATHING IS EVEN AND UNLABORED. HOB RAISED. IV SITE IS PATENT, NO SIGNS OF INFILTRATION OR INFECTION NOTED. CHEST TUBE ATTACHED, ON CONTINUOUS SUCTIONING, CLAMPS AND STERILE WATER PRESENT AT BEDSIDE. PATIENT DENIES PAIN OR SOB. CALL LIGHT WITH PATIENT. PATIENT DEMONSTRATED PROPER USE. PATIENT REFUSED TO HAVE BED ALARM ON, STATED HE HAS NO PROBLEM WALKING. PATIENT EDUCATED ON BED ALARM'S PURPOSE AND BENEFITS, WILL ENCOURAGE THROUGHOUT SHIFT. BSC AND URINAL PRESENT AT BEDSIDE. BED IS LOCKED AND AT LOWEST POSITION. WILL CONTINUE TO MONITOR.
[2020-03-22 20:00] VITALS: BP_SYST 152
[2020-03-22] MEDS: SENNOSIDES/DOCUSATE SODIUM 1 TAB TABLET(SENOKOT-S) PO SCH (20:30)
--- NOTE | 2020-03-22 20:30 | NUR ---
MEDPASS/URINAL/BSC SCHEDULED MEDICATIONS ADMINISTERED AT THIS TIME. PATIENT HAD BM ON BSC AND VOIDED IN URINAL. GAIT STEADY. BSC AND URINAL EMPTIED. ALL NEEDS MET. CALL LIGHT WITH PATIENT. WILL CONTINUE TO MONITOR.
--- NOTE | 2020-03-22 23:00 | NUR ---
SNACKS SANDWICH AND MILK PROVIDED AT THIS TIME. NO S/S OF ACUTE DISTRESS NOTED. ALL NEEDS MET. CALL LIGHT WITH PATIENT. WILL CONTINUE TO MONITOR.
[2020-03-23 00:30] VITALS: BP_SYST 130
--- NOTE | 2020-03-23 00:30 | NUR ---
PAIN PATIENT COMPLAINED OF PAIN. PRN MEDICATION ADMINISTERED. WILL CONTINUE TO MONITOR AND REASSESS.
[2020-03-23] MEDS: HYDROcodone/ACETAMIN 5-325 MG TAB (NORCO/ VICODIN) PO PRN ×6 (00:32→22:24)
--- NOTE | 2020-03-23 03:00 | NUR ---
ROUNDS PATIENT IN BED, SLEEPING, NO S/S OF ACUTE DISTRESS NOTED. BREATHING EVEN AND UNLABORED. CHEST TUBE ATTACHED AND OPERATING. CALL LIGHT WITH PATIENT. WILL CONTINUE TO MONITOR.
--- NOTE | 2020-03-23 05:00 | NUR ---
AMBULATE TO BATHROOM PATIENT WALKED TO BATHROOM TO VOID, GAIT IS STEADY. PATIENT TOLERATED WELL, ASSISTED BACK TO BED. ALL NEEDS MET. CALL LIGHT WITH PATIENT. WILL CONTINUE TO MONITOR.
[2020-03-23] MEDS: PIPERACILLIN/TAZO 3.375/DEX-IS 50 ML IV SCH ×3 (05:37→17:05)
--- NOTE | 2020-03-23 06:52 | NUR ---
CLOSING NOTE PATIENT IN BED, ASLEEP AT THIS TIME. NO S/S OF ACUTE DISTRESS NOTED. BREATHING IS EVEN AND UNLABORED. HOB RAISED. IV SITE IS PATENT, NO SIGNS OF INFILTRATION OR INFECTION NOTED. CHEST TUBE IN PLACE, OPERATING WELL, ON CONTINUOUS SUCTION. ALL NEEDS MET THROUGHOUT SHIFT. FALL AND SAFETY PRECAUTIONS MAINTAINED THROUGHOUT SHIFT. WILL CONTINUE TO MONITOR UNTIL PATIENT CARE IS ENDORSED TO ONCOMING DAYSHIFT NURSE.
--- NOTE | 2020-03-23 07:34 | NUR ---
Opening Note received bedside SBAR report from field case manager RN, patient resting in bed, respirations even and unlabored on room air, no acute distress noted, chest tube to low continuous suction, educated patient on use of call light and asked to call for assistance, patient verbalized understanding, call light in reach, educated patient on use of bed alarm for patient safety, patient verbalized understanding, patient refusing bed alarm, bed in low and locked position.
[2020-03-23 08:23] VITALS: BP_SYST 145
--- NOTE | 2020-03-23 08:35 | NUR ---
Physician Rounds rounds with Dr. Aguilar, informed him that per cook night RN chest tube had 60ml output, informed him that patients O2Sat is 97% on room air, no new orders.
[2020-03-23] MEDS: POLYETHYLENE GLYCOL 3350, 17 GM/ POWD.PACK PO SCH ×2 (08:39→09:00)
[2020-03-23] MEDS: tiZANidine HCL 4 MG TABLET PO SCH ×3 (08:39→20:36)
[2020-03-23] MEDS: GEMFIBROZIL 600 MG TABLET (LOPID) PO SCH ×2 (08:39→20:36)
[2020-03-23] MEDS: Effexor 37.5 MG TAB PO SCH ×3 (08:39→20:36)
[2020-03-23] MEDS: ENOXAPARIN SODIUM 40 MG/0.4 ML SYRINGE SUBCUT SCH (08:40)
--- NOTE | 2020-03-23 10:45 | NUR ---
Snack patient requesting snack, provided patient with turkey sandwich, pudding, and cranberry juice, patient sitting up in bed eating snack, tolerating well, no acute distress noted.
[2020-03-23 12:15] VITALS: BP_SYST 143
--- NOTE | 2020-03-23 12:55 | NUR ---
Lunch patient sitting up in bed eating lunch, tolerating well, patient denies any nausea or vomiting, patient reports pain is controlled at this time.
[2020-03-23] MEDS ORDERED: COMMUNICATION ORDER XX ONE (13:30)
--- NOTE | 2020-03-23 13:30 | NUR ---
Physician Rounds Dr. Chew at bedside speaking with patient, informed consent for surgical procedure obtained.
--- NOTE | 2020-03-23 15:25 | NUR ---
RN Rounds patient resting in bed, respirations even and unlabored on room air, patient reports pain is controlled, patient denies any shortness of breath, no acute distress noted.
[2020-03-23 16:13] VITALS: BP_SYST 151
--- NOTE | 2020-03-23 17:48 | NUR ---
IV access IV catheter to left forearm leaking, catheter removed, catheter intact, no bleeding, educated patient on purpose and procedure for IV catheter placement, patient verbalized understanding, IV catheter placed to left hand, 22G, flushes easily with good blood return, transparent dressing in place, patient tolerated well.
--- NOTE | 2020-03-23 19:04 | NUR ---
Closing Note bedside SBAR report given to receiving RN, patient resting in bed, respirations even and unlabored on room air, patient reports pain is controlled, no acute distress noted, chest tube to continuous suction, educated patient on use of call light and asked to call for assistance, patient verbalized understanding, call light in reach, educated patient on use of bed alarm for patient safety, patient verbalized understanding, patient refusing bed alarm, bed in low and locked position, care endorsed to jig maker RN.
--- NOTE | 2020-03-23 19:30 | NUR ---
Opening notes Received report. Patient is resting in bed, no signs of distress noted. Breathing even and unlabored, on room air. Chest tube to left side. Old drainage noted on dressing. Suction @ 20 mmHg. Water level @ 20cm. Continuous bubbling noted in suction control chamber. No water leak. Brownish-red drainage noted in collection chamber. IV patent and intact. No other needs. Call light with the patient. Safety precautions in place.
[2020-03-23 20:00] VITALS: BP_SYST 150
--- NOTE | 2020-03-23 20:36 | NUR ---
Medications given. Educated the action and side effects of Senokot. Patient verbalized understanding and refused Senokot. Patient having loose BM, per patient. Patient provided with sandwich. No other needs. Call light with the patient. Safety precautions in place.
[2020-03-23] MEDS: SENNOSIDES/DOCUSATE SODIUM 1 TAB TABLET(SENOKOT-S) PO SCH (20:37)
--- NOTE | 2020-03-23 22:25 | NUR ---
Pain Patient complains of pain to left chest. PRN pain medication given. Educated the action and side effects of medication. Educated fall precautions and to call for when needed. Call light with the patient. Safety precautions in place.
[2020-03-24] MEDS: PIPERACILLIN/TAZO 3.375/DEX-IS 50 ML IV SCH ×5 (00:01→23:59)
--- NOTE | 2020-03-24 00:14 | NUR ---
Moved to room 102A Patient tolerated well. Chest tube in place, continuous suction @ 20 mmHg. Continous bubbling noted. No leaks. Patient oriented to room and call light. Patient provided with sandwich. No other needs. Call light with the patient. Safety precautions in place.
[2020-03-24 01:26] VITALS: BP_SYST 145
--- NOTE | 2020-03-24 02:20 | NUR ---
RN rounds Patient is resting in bed, no signs of distress noted. breathing even and unlabored on room air. Chest tube in place, continuous bubbling noted in suction chamber. No leaks. Call light with the patient. Safety precautions in place.
--- NOTE | 2020-03-24 06:47 | NUR ---
Closing notes Patient sleeping. No signs of distress noted. Breathing even and unlabored on room air. Left chest tube in place to suction at 20 mmHg at 20 cm. Continuous bubbling noted in suction chamber. No water leak. 100 ml of brownish red drainage obtained throughout shift. All needs met throughout the shift. Call light with the patient. Safety precautions in place. Will endorse care to day shift RN. Addendum: 03/24/20 at 0708 by Megan Vargas RN CORRECTION: OBTAINED 50 ML OF BROWNISH RED DRAINAGE THROUGHOUT SHIFT, NOT 100 ML.
[2020-03-24 07:08] LABS: CREATININE 0.75 mg/dL (0.55-1.30); POTASSIUM 4.6 mmol/L (3.5-5.1)
--- NOTE | 2020-03-24 07:28 | NUR ---
RECEIVED REPORT FROM CHILD CAREGIVER RN. PATIENT AWAKE, SITTING UP IN BED, VOICES NO C/O PAIN OR DISCOMFORT.CALM/ PLEASANT.RESP REG., NON-LABORED, IVPB FLUSHED. NAD NOTED.
[2020-03-24 08:09] LABS: EOSINOPHILS # (AUTO) 0.3 K/uL (0.0-0.4); EOSINOPHILS % (AUTO) 3.4 % (0.0-4.0); HEMATOCRIT 27.4 % (36-54); HEMOGLOBIN 9.2 g/dL (14.0-18.0); LYMPHOCYTES # (AUTO) 3.9 K/uL (1.0-5.5); MEAN CORPUSCULAR HEMOGLOBIN 32 pg (27-31); MEAN CORPUSCULAR HGB CONC 33 % (32-36); MEAN CORPUSCULAR VOLUME 96 fL (79.0-98.0); MONOCYTES # (AUTO) 0.7 K/uL (0.0-1.0); MONOCYTES % (AUTO) 7.1 % (1.7-9.3); RED BLOOD CELL COUNT(AUTO) 2.86 MIL/uL (4.2-6.2); RED CELL DISTRIBUTION WIDTH 16.8 % (9.0-15.0); WHITE BLOOD COUNT (AUTO) 9.8 K/uL (4.8-10.8)
[2020-03-24 08:15] VITALS: BP_SYST 147
[2020-03-24 08:18] LABS: PROTHROMBIN TIME 9.9 SECS (9.5-12.5)
[2020-03-24] MEDS: POLYETHYLENE GLYCOL 3350, 17 GM/ POWD.PACK PO SCH (09:00)
[2020-03-24] MEDS: Effexor 37.5 MG TAB PO SCH ×3 (09:48→20:52)
[2020-03-24] MEDS: tiZANidine HCL 4 MG TABLET PO SCH ×3 (09:48→20:51)
[2020-03-24] MEDS: GEMFIBROZIL 600 MG TABLET (LOPID) PO SCH ×2 (09:48→20:52)
[2020-03-24] MEDS: HYDROmorphone 1 MG INJ. 1 MG/ML AMPUL IVP PRN (09:55)
--- NOTE | 2020-03-24 10:12 | NUR ---
CONSULTATION PAGED/CALLED Reason for Consultation: [] EMPYEMA Person Who was Notified: [] CHEPE Consulting Physician: [] DR SMALLWOOD, DR REESE LEAD GENERATION SPECIALIST Male Infertility Specialist Specialty: [] ID Ordering Physician: [] DR DYSON
[2020-03-24 10:13] LABS: PLATELET COUNT (AUTO) 906 K/uL (130-430)
[2020-03-24 10:15] LABS: BASOPHILS % (AUTO) 0.6 % (0.0-2.0); NEUTROPHILS # (AUTO) 4.9 K/uL (1.8-7.7); NEUTROPHILS % (AUTO) 48.9 % (40.0-70.0)
--- NOTE | 2020-03-24 10:20 | NUR ---
MED PASS PT TOLERATED PO MEDS WELL, VOICED C/O PAIN, 5/10 , IVP MED GIVEN. WILL RE-ASSESS.
[2020-03-24 11:25] VITALS: BP_SYST 145
--- NOTE | 2020-03-24 13:00 | NUR ---
PT W/ RELIEF FROM PAIN, MED EFFECTIVE. PT EDUCATION ON SURGICAL PROCEDURE SCHEDULED FOR WEDNESDAY. PT VERBALIZED UNDERSTANDING, WAS THANKFUL FOR THE EDUCATION STATING " I AM A LITTLE LESS NERVOUS, WHAT YOU SAID MAKES SENSE."
[2020-03-24] MEDS ORDERED: COMMUNICATION ORDER XX PRN (13:30)
--- NOTE | 2020-03-24 14:42 | NUR ---
PT DAUGHTER CALLED FOR AN UPDATE OF PATIENT STATUS GENERAL UPDATE OF PATIENT OVERALL STATUS GIVEN. DAUGHTER ALSO ASKED FOR DETAILS OF SURGICAL PROCEDURE, REFFERED HER TO CALL DR WALKER AT OFFICE FOR SPECIFIC SURGICAL INFO.
[2020-03-24 15:28] VITALS: BP_SYST 127
--- NOTE | 2020-03-24 17:30 | NUR ---
OMN ROUNDS PATIENT SITTING UP IN BED STATES HE FEELS GREAT, CHEST TUBE COLLECTION CHAMBER W/ BUBBLES, SEAL IS INTACT- OUTPUT IS 30ML. PT RESP REG NO-LABORED NAD NOTED.
--- NOTE | 2020-03-24 19:12 | NUR ---
REPORT TO DYE COLORIST FORMULATOR RN. PT SITTING IN BED, CALM W/ HAPPY DEMEANOR, TALKATIVE. IVPB FLUSHED, IV SITE HL. NAD NOTED.
--- NOTE | 2020-03-24 19:15 | NUR ---
Opening notes Received report. Patient is resting in bed, no signs of distress noted. Breathing even and unlabored on room air. IV patent and intact, no signs of infiltration noted. Left chest tube in place, suction at 20 mmHg, continuous bubbling noted in collection chamber. No leaks noted. Serous drainage noted in collection chamber. No needs at this time. Call light with the patient. Safety precautions in place.
--- NOTE | 2020-03-24 19:48 | NUR ---
Spoke to Dr. Chew updated Dr. Chew on patient's labs for today. No new orders. Doctor stated he will call nurse tomorrow for updates on surgery scheduled for Wednesday.
[2020-03-24 20:00] VITALS: BP_SYST 130
[2020-03-24] MEDS: HYDROcodone/ACETAMIN 5-325 MG TAB (NORCO/ VICODIN) PO PRN (20:51)
--- NOTE | 2020-03-24 20:51 | NUR ---
Medications given. Educated the action and side effects of Lovenox. Patient verbalized understanding and tolerated well. Patient provided with juice. No other needs. Call light with the patient. Safety precautions in place.
[2020-03-24] MEDS: SENNOSIDES/DOCUSATE SODIUM 1 TAB TABLET(SENOKOT-S) PO SCH (20:52)
[2020-03-24] MEDS ORDERED: ENOXAPARIN SODIUM 40 MG/0.4 ML SYRINGE SUBCUT SCH (21:00)
--- NOTE | 2020-03-24 22:30 | NUR ---
Collection chamber changed Patient tolerated well. Suction at 20 mmHg. Continuous bubbling noted in suction control chamber. No leaks noted. Patient given sandwich and juice. No other needs. Call light with the patient. Safety precautions in place.
[2020-03-25] VITALS (7 sets, daily range): BP systolic 120–135
--- NOTE | 2020-03-25 00:30 | NUR ---
RN rounds Patient sleeping. No signs of distress noted. Breathing even and unlabored on room air. Continuous bubbling noted in suction control chamber. Suction at 20 mmHg. No leaks noted. No needs. Call light with the patient. Safety precautions in place.
--- NOTE | 2020-03-25 04:10 | NUR ---
RN rounds Patient is resting in bed, no signs of distress noted. breathing even and unlabored on room air. Chest tube in place, continuous bubbling noted in suction chamber. No leaks. Patient provided with sandwich and juice. Call light with the patient. Safety precautions in place.
[2020-03-25] MEDS: PIPERACILLIN/TAZO 3.375/DEX-IS 50 ML IV SCH ×4 (05:39→23:16)
--- NOTE | 2020-03-25 06:37 | NUR ---
Closing notes Patient sleeping. No signs of distress noted. Breathing even and unlabored on room air. Left chest tube in place to suction at 20 mmHg at 20 cm. Continuous bubbling noted in suction chamber. No water leak. 40 ml of serous drainage obtained throughout shift. All needs met throughout the shift. Call light with the patient. Safety precautions in place. Will endorse care to day shift RN.
[2020-03-25] MEDS: HYDROcodone/ACETAMIN 5-325 MG TAB (NORCO/ VICODIN) PO PRN (07:39)
--- NOTE | 2020-03-25 07:45 | NUR ---
RECEIVED REPORT FROM RESOURCE RN JOHN. PT AAOX4, SITTING IN HIS BED WATCHING TV. L LATERAL CHEST TUBE DRAINING TO PROPERLY, CHAMBER W/ POS SEAL AND BUBBLES. PER REPORT RECENTLY MEDICATED FOR PAIN. NAD NOTED
--- NOTE | 2020-03-25 08:10 | NUR ---
RECEIVED A CALL FROM DR WALKER RE: SURGICAL PROCEDURE WEDNESDAY AM, S/W DR IN PATIENTS' PRESENCE. REMINDED PT OF NPO STATUS 12 MID TONIGHT, SURGERY SCHEDULED FOR 1300 ON MONDAY 03/26 (TOMORROW), LOVENOX ON HOLD 03/25/20 2100 DOSE. PT VERBALIZED UNDERSTANDING. CALL ENDED.
[2020-03-25] MEDS: POLYETHYLENE GLYCOL 3350, 17 GM/ POWD.PACK PO SCH (09:00)
[2020-03-25] MEDS: GEMFIBROZIL 600 MG TABLET (LOPID) PO SCH ×2 (09:03→21:11)
[2020-03-25] MEDS: Effexor 37.5 MG TAB PO SCH ×3 (09:03→21:11)
[2020-03-25] MEDS: tiZANidine HCL 4 MG TABLET PO SCH ×3 (09:03→21:11)
--- NOTE | 2020-03-25 09:44 | NUR ---
PT SEEN BY DR MENDEZ EARLIER TODAY. REVEIVED CALL FROM DR MENDEZ RE: NEW ORDER- CHEST CT W/ O CONTRAST TODAY.
--- NOTE | 2020-03-25 11:35 | NUR ---
PATIENT OOB TO W/C WENT TO CT @ [address], RETURNED TO ROOM CHEST TUBE RE-CONNECTED TO WALL SUCTION PER ORDERS. PT TOLERATED OOB ACTIVITY WELL.
--- NOTE | 2020-03-25 14:00 | NUR ---
PT ASLEEP AT PRESENT VOICES NO C/O PAIN OR DISCOMFORT, CHEST TUBE TO LOW CONT. SUCTION DRAINAGE AMOUNT IS LESS THAN YESTERDAY. RESP REG NON-LABORED
[2020-03-25] MEDS: HYDROmorphone 1 MG INJ. 1 MG/ML AMPUL IVP PRN (16:02)
[2020-03-25] MEDS: ONDANSETRON HCL 4 MG/2 ML VIAL IVP PRN (16:03)
--- NOTE | 2020-03-25 18:30 | NUR ---
PT AA, WATCHING TV, WHILE FINISHING DINNER, ATE 100% OF DINNER. VOICES NO C/O PAIN OR DISCOMFORT. DAUGHTER CALLED REGARDING TIME OF SURG DURING ROUNDS, PATIENT GAVE PERMISSION TO GIVE DAUGHTER SURGICAL INFO...OF SURGERY BEING AT 1300. PT ASK ME TO TELL DAUGHTER TO CALL HIM AT 7 PM WATCHING THE HYBRID CORN BREEDER CONFIRMATION.
--- NOTE | 2020-03-25 19:12 | NUR ---
REPORT GIVEN TO ROAY SUPERVISORY CBP OFFICER RN AT BEDSIDE. PT TALKING TO HIS DAUGHTER AND WATCHING TV AT PRESENT.
--- NOTE | 2020-03-25 19:15 | NUR ---
change of shift.pt.presents quiescent affect;calm,resting.pt.presents chest tube;lt.axilla.intact;patent sanguinous return present w/in the collection chamber.pt.presents iv access:location;lt hand intact;patent iv fluids:ns flush infusing.no c/o pain,nausea.genral tsu stable.respiratory status stable;unlabored@room air.call light/telephone w/in access of the pt.
--- NOTE | 2020-03-25 20:00 | NUR ---
pt.assessed.v/s assessed.values w/in normal limits.chest tube extant;location lt.AXIlLA.CHesT TUBE INtACT;PATENT SANGUINOuS RETURn PReSEnT W/IN THe CoLLECTIOn CHAMBER.I have RECEiVED THe PT. W/ THE RETURn CONTEnt @35ML LEVEL.pt.presents iv access intact;patent iv fluids;ns flush infusing.pt.utilizing the urinal.i have attended to the urinal:measured/cleaned placed w/in access of the pt.pt utilizing the bsc.inspected/cleaned the bsc w/in access of the pt.pt.capable to reposition self/ambulate.call light/telephone w/in access of the pt,
--- NOTE | 2020-03-25 21:00 | NUR ---
2100pmedications administered.pt.capable to ingest the medications;po w/out difficulty. Addendum: 03/26/20 at 0309 by Toi Cespedes RN i have administered zyvox;abx;ivpb 2100pdose.
[2020-03-25] MEDS: LINEZOLID 300 ML IV SCH (21:10)
[2020-03-25] MEDS: SENNOSIDES/DOCUSATE SODIUM 1 TAB TABLET(SENOKOT-S) PO SCH (21:11)
--- NOTE | 2020-03-25 22:00 | NUR ---
pt.assessed.pt.had requested snacks/juice.i have provided the snacks/juice.i have assessed the chest tube intact;patent sanguinous return w/in the collection chamber.iv access intact;patent iv fluids infusing.urinal w/in the access of the pt. iv access intact;patent iv fluids;ns-flush infusing.pt.capable to reposition self.call light/telephone w/in access of the pt.
[2020-03-26] VITALS (8 sets, daily range): BP systolic 89–129
--- NOTE | 2020-03-26 | NUR ---
pt.assessed.v/s assessed values w/in normal limits.no c/o pain,nausea.i have re-iterated to the pt.that the diet status has converted to npo.2/t surgery:03/26/20.no c/o pain,nausea.iv access intact;patent iv fluids infusing.i have administered zosyn;abx;ivpb midnight dose.i have attended to the urinal:measured/cleaned placed w/in access of the pt.call light/ telephone placed w/in access of the pt.
--- NOTE | 2020-03-26 01:30 | NUR ---
pt.requested medication pain.i have administered dilaudid:0.4mg ivp.to assess the efficacy of the pain medication per pain mgx protocol.i have attended to the urinal/bsc:measured/cleaned placed the urinal/bsc w/in access of the pt.no additional requests posited@this hour.
[2020-03-26] MEDS: HYDROmorphone 1 MG INJ. 1 MG/ML AMPUL IVP PRN ×2 (01:49→10:02)
--- NOTE | 2020-03-26 02:00 | NUR ---
pt.assessed.chest tube assessed intact;patent drainage present w/in collection chamber.pt.presents quiescent affect calm,somnolent. per flacc pain mgx pt.absent facial grimaces/body posturing.iv access intact;patent iv fluids;ns flush infusing.general status stable.respiratory status stable;unlabored.o2-sat%=98%.call light/telephone w/in access of the pt.
--- NOTE | 2020-03-26 04:00 | NUR ---
pt.assessed.pt.presents quiescent affect;calm,somnolent;lt.chest tube intact;patent sanguinous return present.per flacc pain mgx pt.absent facial grimaces/body posturing.iv access intact;patent iv fluids;ns-flush infusing.general status stable. respiratory status stable;unlabored.02-sat%=98%.call light/telephone w/in access of the pt.
[2020-03-26] MEDS: PIPERACILLIN/TAZO 3.375/DEX-IS 50 ML IV SCH ×4 (05:52→23:55)
--- NOTE | 2020-03-26 06:19 | NUR ---
pt.assessed.pt.presents quiescent affect;calm,resting viewing tv programming.no c/o pain,nausea.i have administered zosyn abx; [id number] dose.no requests posited@this hour.chest tube intact;patent sanguinous return present.i have attended to the surgery check list. general status stable.respiratory status stable;unlabored call light/telephone w/in access of the pt.urinal inspected;clean w/in access of the pt.
--- NOTE | 2020-03-26 07:32 | NUR ---
Opening Note Patient in bed resting, a/o x 4, respirations even and unlabored, assessment complete, left chest tube in place to suction at 20 mmHg at 20 cm, continuous bubbling noted in suction chamber no water leak, fall and aspiration precautions put in place, bed locked and at low position, call light within reach, will monitor patient for any changes.
--- NOTE | 2020-03-26 08:29 | NUR ---
MD Rounds Dr. Wiseman at bedside assessing patient, will follow up with new orders.
[2020-03-26] MEDS: Effexor 37.5 MG TAB PO SCH ×3 (09:00→22:12)
[2020-03-26] MEDS: GEMFIBROZIL 600 MG TABLET (LOPID) PO SCH ×2 (09:00→22:12)
[2020-03-26] MEDS: tiZANidine HCL 4 MG TABLET PO SCH ×3 (09:00→22:12)
[2020-03-26] MEDS: POLYETHYLENE GLYCOL 3350, 17 GM/ POWD.PACK PO SCH (09:00)
[2020-03-26] MEDS: LINEZOLID 300 ML IV SCH ×2 (10:01→22:13)
--- NOTE | 2020-03-26 10:01 | NUR ---
RN Rounds/medications patient in bed resting, no signs of distress noted, respirations even and unlabored, administered medication as ordered per MD, patient tolerated well, will continue to monitor patient.
--- NOTE | 2020-03-26 12:07 | NUR ---
RN Rounds patient in bed resting, administered medication as ordered per MD, patient tolerated well, safety measures maintained, no other needs at this time.
--- NOTE | 2020-03-26 13:10 | NUR ---
Patient left to O.R. patient in stable condition.
[2020-03-26] MEDS ORDERED: POLYMYXIN 500,000/BACIT.10,000 UNITS in NS IRR 1 L IR ONE (13:27)
[2020-03-26] MEDS ORDERED: THROMBIN (BOVINE) 5000 UNITS/ VIAL TP ONE (15:51)
--- NOTE | 2020-03-26 15:58 | NUR ---
Gave patient report to Marck from ICU
[2020-03-26] MEDS ORDERED: SUGAMMADEX SODIUM 200 MG/2 ML VIAL IV ONE (17:27)
[2020-03-26] MEDS ORDERED: NS IRRIG SOLN 1000 ML IR ONE (17:27)
[2020-03-26] MEDS ORDERED: BUPIVACAINE /PF 0.25% 30 ML VIAL INJ ONE (17:27)
[2020-03-26] MEDS ORDERED: fentaNYL CITRATE 250 MCG/5 ML AMP IV ONE (17:27)
[2020-03-26] MEDS ORDERED: SUCCINYLCHOLINE CHLORIDE 20 MG/ML(QUELICIN) ONE (17:27)
[2020-03-26] MEDS ORDERED: LR 1,000 ML IV.SOLN IV ONE (17:27)
[2020-03-26] MEDS ORDERED: ONDANSETRON HCL 4 MG/2 ML VIAL ONE (17:27)
[2020-03-26] MEDS ORDERED: PROPOFOL 200MG/ 20ML VIAL (DIPRIVAN) IV ONE (17:27)
[2020-03-26] MEDS ORDERED: DESFLURANE 15 MIN GAS INH ONE (17:27)
[2020-03-26] MEDS ORDERED: DEXAMETHASONE SOD PHOSPHATE 4 MG/ML VIAL ONE (17:27)
[2020-03-26] MEDS ORDERED: ROCURONIUM BROMIDE 10 MG/ML (ZEMURON) ONE (17:27)
[2020-03-26] MEDS ORDERED: KETOROLAC TROMETHAMINE 30 MG VIAL ONE (17:27)
[2020-03-26] MEDS ORDERED: LIDOCAINE 1% 10 MG/ML, 20 ML MDV ONE (17:27)
[2020-03-26] MEDS ORDERED: MIDAZOLAM HCL 5 MG/ML VIAL (VERSED) IV ONE (17:27)
--- NOTE | 2020-03-26 17:30 | NUR ---
Admission ADMIT NOTE Received pt from OR to ICU post thoracotomy. Admission process initiated. patient oriented to pain management, safety and call light-teach back done. Received report from RN via sbar.
--- NOTE | 2020-03-26 18:00 | NUR ---
Dr. Chew at bedside. Received orders to restart lovenox in the AM after checking H/H. Start regular diet in the AM as tolerated. Received order for d5 1/2 NS 20 MEQ KCL IV @ 75 cc. Torodol 30 mg IV Q6 for moderate pain, Morphine 4 mg Q3 IV for severe pain, percoset 10 mg PO q$ for moderate pain.
[2020-03-26] MEDS ORDERED: KCL 20 mEq in D5/0.45NS 1000mL 1,000 ML IV SCH (18:30)
[2020-03-26 18:37] LABS: HEMATOCRIT 25.2 % (36-54); HEMOGLOBIN 8.1 g/dL (14.0-18.0); MEAN CORPUSCULAR HEMOGLOBIN 31 pg (27-31); MEAN CORPUSCULAR HGB CONC 32 % (32-36); MEAN CORPUSCULAR VOLUME 98 fL (79.0-98.0); RED BLOOD CELL COUNT(AUTO) 2.57 MIL/uL (4.2-6.2); RED CELL DISTRIBUTION WIDTH 17.3 % (9.0-15.0)
[2020-03-26 18:38] LABS: CALCIUM 8.6 mg/dL (8.4-11.0); CREATININE 1.02 mg/dL (0.55-1.30); POTASSIUM 4.3 mmol/L (3.5-5.1)
[2020-03-26 18:44] LABS: ALBUMIN 2.2 g/dL (3.4-4.8)
--- NOTE | 2020-03-26 18:54 | NUR ---
PAGED DR. NICOLAS FOR ORDERS DIALED: [phone] SPOKE: DAHLIA
--- NOTE | 2020-03-26 19:01 | NUR ---
Received call from lab with critical values WBC and Platelet count. Marck the bedside RN, sitting next to me was given the information.
[2020-03-26 19:05] LABS: TOTAL BILIRUBIN 0.1 mg/dL (0.0-1.0)
[2020-03-26 19:06] LABS: PLATELET COUNT (AUTO) 968 K/uL (130-430); WHITE BLOOD COUNT (AUTO) 51.1 K/uL (4.8-10.8)
--- NOTE | 2020-03-26 19:10 | NUR ---
Reported critical value to Dr. Chew Platelet and WBC.
--- NOTE | 2020-03-26 19:15 | NUR ---
OPENING NOTE SBAR REPORT RECEIVED FROM DEVAN MATOS. CARE ASSUMED. PT LAYING IN BED. PT AOX4. PT ON 2L NC. O2 SATURATION 97%. PT HAS 18 G TO RIGHT HAND RUNNING D5/ 1/2 NS WITH 20 MEQ KCL AT 75 ML/HR. PT HAS ARTERIAL LINE IN PLACE. LINE INTACT. PT HAS A PAIN PUMP IN PLACE WHICH CONTAINS MORPHINE, FENTANYL, BACLOFEN AND CLONIDINE. UNABLE TO VERIFY MEDICATION LEVELS BUT REPORTED MEDICATION WILL BE " RUNNING OUT". PT HAS LEFT SIDED CHEST TUBE CONNECTED TO LOW INTERMITTENT SUCTION. DRAINAGE SANGUINOUS. PT ABDOMEN SOFT NON DISTENDED. AUGUSTE CATHETER IN PLACE FLOWING TO GRAVITY. URINE YELLOW AND CLEAR. SKIN INTACT. BED LOCKED IN LOWEST POSITION. CALL LIGHT WITHIN REACH. SAFETY PRECAUTIONS IN PLACE. WILL CONTINUE TO MONITOR.
--- NOTE | 2020-03-26 19:38 | NUR ---
Closing Note Provided plan of care via sbar to receiving RN.
[2020-03-26 19:55] LABS: BAND % (MANUAL) 5 % (0-6); LYMPHOCYTES % (MANUAL) 2 % (20-46); MONOCYTES % (MANUAL) 1 % (0-11)
[2020-03-26 19:56] LABS: BASOPHILS % (MANUAL) 0 % (0-2); EOSINOPHILS % (MANUAL) 0 % (0-7)
[2020-03-26] MEDS: MORPHINE 4 MG/ML INJ. SYRINGE IVP PRN ×2 (22:10→23:55)
[2020-03-26] MEDS: SENNOSIDES/DOCUSATE SODIUM 1 TAB TABLET(SENOKOT-S) PO SCH (22:12)
[2020-03-26] MEDS ORDERED: SENNOSIDES/DOCUSATE SODIUM 1 TAB TABLET(SENOKOT-S) ONE (22:27)
[2020-03-26] MEDS ORDERED: Effexor 37.5 MG TAB ONE (22:28)
[2020-03-27] VITALS (23 sets, daily range): BP systolic 91–141
[2020-03-27] MEDS: MORPHINE 4 MG/ML INJ. SYRINGE IVP PRN (02:59)
[2020-03-27 05:36] LABS: BASOPHILS # (AUTO) 0.1 K/uL (0.0-0.2); BASOPHILS % (AUTO) 0.2 % (0.0-2.0); HEMATOCRIT 23.2 % (36-54); HEMOGLOBIN 7.6 g/dL (14.0-18.0); LYMPHOCYTES # (AUTO) 3.9 K/uL (1.0-5.5); LYMPHOCYTES % (AUTO) 14.7 % (20.5-51.5); MEAN CORPUSCULAR HEMOGLOBIN 32 pg (27-31); MEAN CORPUSCULAR HGB CONC 33 % (32-36); MEAN CORPUSCULAR VOLUME 97 fL (79.0-98.0); MONOCYTES # (AUTO) 1.8 K/uL (0.0-1.0); MONOCYTES % (AUTO) 6.9 % (1.7-9.3); NEUTROPHILS # (AUTO) 20.7 K/uL (1.8-7.7); NEUTROPHILS % (AUTO) 78.2 % (40.0-70.0); RED BLOOD CELL COUNT(AUTO) 2.39 MIL/uL (4.2-6.2); RED CELL DISTRIBUTION WIDTH 17.9 % (9.0-15.0); WHITE BLOOD COUNT (AUTO) 26.4 K/uL (4.8-10.8)
[2020-03-27 05:51] LABS: PLATELET COUNT (AUTO) 846 K/uL (130-430)
[2020-03-27 05:56] LABS: ALBUMIN 2.3 g/dL (3.4-4.8); CALCIUM 8.8 mg/dL (8.4-11.0); CREATININE 1.04 mg/dL (0.55-1.30); POTASSIUM 4.9 mmol/L (3.5-5.1); TOTAL BILIRUBIN 0.2 mg/dL (0.0-1.0)
[2020-03-27] MEDS: PIPERACILLIN/TAZO 3.375/DEX-IS 50 ML IV SCH ×4 (06:15→23:32)
--- NOTE | 2020-03-27 07:22 | NUR ---
CLOSING NOTE PT LAYING IN BED. NO SIGNS AND SYMPTOMS OF DISTRESS NOTED. SBAR REPORT GIVEN TO ISIDRO MATOS. CARE ENDORSED.
--- NOTE | 2020-03-27 07:30 | NUR ---
Opening Notes Patient received sleeping in bed with no signs of distress noted. Patient connected to rn cardiac cath NSR. Patient on 2L oxygen via nasal cannula, breathing evenly and unlabored. Patient with peripheral IV's receiving D51/2 NS + 20 meq kCl at 75 ml/hr. Patient with left wrist a-line. Patient has a rossi catheter draining urine. Safety precautions enforced.
[2020-03-27] MEDS ORDERED: FUROSEMIDE 20 MG/2 ML VIAL IVP ONE (08:30)
[2020-03-27] MEDS: POLYETHYLENE GLYCOL 3350, 17 GM/ POWD.PACK PO SCH (09:00)
--- NOTE | 2020-03-27 09:05 | NUR ---
Blood Transfusion 1st unit of PRBC transfusing. Patient educated on adverse effects, such as shortness of breath, fever, and chills. Educated patient to inform nurse if experiencing any of these symptoms. Patient verbalized understanding. Patient tolerating well.
[2020-03-27] MEDS: tiZANidine HCL 4 MG TABLET PO SCH ×3 (09:22→20:28)
[2020-03-27] MEDS: ASPIRIN 325 MG TABLET PO SCH (09:22)
[2020-03-27] MEDS: GEMFIBROZIL 600 MG TABLET (LOPID) PO SCH ×2 (09:22→20:28)
[2020-03-27] MEDS: LINEZOLID 300 ML IV SCH ×2 (09:22→20:27)
[2020-03-27] MEDS: KETOROLAC TROMETHAMINE 30 MG VIAL IVP PRN ×2 (10:08→16:27)
[2020-03-27] MEDS: Effexor 37.5 MG TAB PO SCH ×3 (10:09→20:28)
[2020-03-27] MEDS: HYDROcodone/ACETAMIN 5-325 MG TAB (NORCO/ VICODIN) PO PRN ×2 (13:05→20:40)
--- NOTE | 2020-03-27 13:50 | NUR ---
Physical Therapy Physical therapist at bedside to assist and assess patient with gait/mobility. Patient able to stand up using walker and take few steps. I also was at bedside to assist PT. Patient tolerated well. No signs of distress noted, no complaints of pain. Safety precautions enforced.
--- NOTE | 2020-03-27 14:10 | NUR ---
Blood Transfusion 2nd unit PRBC transfusing at this time. Patient tolerating well.
--- NOTE | 2020-03-27 19:33 | NUR ---
Closing Notes Patient endorsed to shift stacker RN using SBAR format. Patient in no signs of distress.
--- NOTE | 2020-03-27 19:34 | NUR ---
Opening Note Received report from AM nurse using SBAR approach.
--- NOTE | 2020-03-27 20:20 | NUR ---
AM assessment Patient is alert and awake eating his dinner. Patient is on the monitor SR. Patient is on room air breathing evenly. Patient has Right Hand #18 gauge running NS TKO. Patient has a rossi catheter draining via gravity. Safety precautions in place, bed locked in lowest position. Will continue to monitor.
[2020-03-27] MEDS: SENNOSIDES/DOCUSATE SODIUM 1 TAB TABLET(SENOKOT-S) PO SCH (20:28)
--- NOTE | 2020-03-27 20:30 | NUR ---
Family Called Daughter, Annamarie called, and asked for updates. Answered all questions and provided update for daughter.
[2020-03-28] VITALS (25 sets, daily range): BP systolic 86–121
--- NOTE | 2020-03-28 04:00 | NUR ---
Declined CHG bath Patient stated that he does not want a bath or linens changed. Patient stated he wanted to rest and not be moved.
[2020-03-28] MEDS: HYDROcodone/ACETAMIN 5-325 MG TAB (NORCO/ VICODIN) PO PRN ×2 (05:22→11:53)
[2020-03-28] MEDS: PIPERACILLIN/TAZO 3.375/DEX-IS 50 ML IV SCH ×3 (05:22→18:03)
[2020-03-28 05:35] LABS: BASOPHILS # (AUTO) 0.1 K/uL (0.0-0.2); BASOPHILS % (AUTO) 0.9 % (0.0-2.0); EOSINOPHILS # (AUTO) 0.3 K/uL (0.0-0.4); EOSINOPHILS % (AUTO) 1.7 % (0.0-4.0); HEMATOCRIT 23.6 % (36-54); HEMOGLOBIN 7.9 g/dL (14.0-18.0); LYMPHOCYTES # (AUTO) 2.3 K/uL (1.0-5.5); MEAN CORPUSCULAR HEMOGLOBIN 31 pg (27-31); MEAN CORPUSCULAR HGB CONC 34 % (32-36); MEAN CORPUSCULAR VOLUME 91 fL (79.0-98.0); MONOCYTES # (AUTO) 1.2 K/uL (0.0-1.0); MONOCYTES % (AUTO) 8.4 % (1.7-9.3); NEUTROPHILS # (AUTO) 10.7 K/uL (1.8-7.7); PLATELET COUNT (AUTO) 524 K/uL (130-430); RED BLOOD CELL COUNT(AUTO) 2.59 MIL/uL (4.2-6.2); RED CELL DISTRIBUTION WIDTH 19.3 % (9.0-15.0); WHITE BLOOD COUNT (AUTO) 14.7 K/uL (4.8-10.8)
--- NOTE | 2020-03-28 05:45 | NUR ---
Discontinued A line 2 RN's at bedside to discontinue patient's A line. Held pressure at the site where we pulled the catheter out. Put a pressure dressing around the area to prevent bleeding. Patient tolerated well. No signs or symptoms of distress.
[2020-03-28 05:49] LABS: CALCIUM 8.1 mg/dL (8.4-11.0); CREATININE 0.9 mg/dL (0.55-1.30); POTASSIUM 4.4 mmol/L (3.5-5.1)
--- NOTE | 2020-03-28 07:15 | NUR ---
Opening Notes Patient received awake, alert, and sitting up in bed. Patient connected to union contract representative with NSR. Patient on room air, breathing evenly and unlabored. Patient with peripheral IVs patent, flushing well, and saline-locked. Patient has a rossi catheter draining urine. Safety precautions enforced.
[2020-03-28] MEDS: GEMFIBROZIL 600 MG TABLET (LOPID) PO SCH ×2 (08:42→20:29)
[2020-03-28] MEDS: Effexor 37.5 MG TAB PO SCH ×3 (08:42→20:31)
[2020-03-28] MEDS: POLYETHYLENE GLYCOL 3350, 17 GM/ POWD.PACK PO SCH (08:42)
[2020-03-28] MEDS: ASPIRIN 325 MG TABLET PO SCH (08:42)
[2020-03-28] MEDS: tiZANidine HCL 4 MG TABLET PO SCH ×3 (08:42→20:30)
[2020-03-28] MEDS: LINEZOLID 300 ML IV SCH ×2 (08:42→20:32)
--- NOTE | 2020-03-28 10:00 | NUR ---
RN Rounds Patient sleeping at this time in bed, no signs of distress noted. Safety precautions enforced. Call light within reach.
--- NOTE | 2020-03-28 10:15 | NUR ---
MD Rounds Dr. Galicia at bedside for examination.
[2020-03-28 11:17] LABS: BASOPHILS # (AUTO) 0.1 K/uL (0.0-0.2); BASOPHILS % (AUTO) 0.9 % (0.0-2.0); EOSINOPHILS # (AUTO) 0.3 K/uL (0.0-0.4); EOSINOPHILS % (AUTO) 2.1 % (0.0-4.0); HEMOGLOBIN 8.1 g/dL (14.0-18.0); LYMPHOCYTES # (AUTO) 2.7 K/uL (1.0-5.5); MEAN CORPUSCULAR HEMOGLOBIN 31 pg (27-31); MEAN CORPUSCULAR HGB CONC 34 % (32-36); MEAN CORPUSCULAR VOLUME 91 fL (79.0-98.0); MONOCYTES # (AUTO) 1.2 K/uL (0.0-1.0); MONOCYTES % (AUTO) 7.7 % (1.7-9.3); NEUTROPHILS # (AUTO) 11.7 K/uL (1.8-7.7); NEUTROPHILS % (AUTO) 72.3 % (40.0-70.0); PLATELET COUNT (AUTO) 515 K/uL (130-430); RED BLOOD CELL COUNT(AUTO) 2.63 MIL/uL (4.2-6.2); RED CELL DISTRIBUTION WIDTH 19.3 % (9.0-15.0); WHITE BLOOD COUNT (AUTO) 16.1 K/uL (4.8-10.8)
[2020-03-28] MEDS ORDERED: FUROSEMIDE 20 MG/2 ML VIAL IVP ONE ×2 (11:45)
--- NOTE | 2020-03-28 13:30 | NUR ---
Nutrition F/U RD reviewed pt's current EMR record including diet Hx, physician notes, nursing notes, pertinent labs/meds/procedures, care trends, and care activity. Admission Dx: Pneumonia PMH: depression, chronic pain, liver tumor removal, dyslipidemia per physician notes Pt also found w/ respiratory failure, hypokalemia, and severe malnutrition per physician notes SARS-CoV-2 Ag (Rapid) Negative 03/15 SARS-CoV-2 (PCR) Negative 03/15 Per EMR, pt is POD 9 s/p L chest tube placement 03/19, POD 2 s/p VATS and thoracotomy 03/26 Current Diet Order/Nutrition Support: Regular x1 day Subjective Info: Pt was asleep at time of RD visit. RN was on lunch break. Per EMR review, pt has been tolerating diet well and eating well since last RD F/U 03/21; last BM x1 03/25. Current diet continues adequate/appropriate to meet nutritional needs. Pertinent Medications Reviewed Pertinent Labs WBC 16.1 H, Na 132 L, BG 113 H, ALB 2.3 L Skin Integrity Comment: Antony scale: 15; per nursing notes, surgical incision to lateral L medial posterior back; non-pitting edema to bilat ankle Current % PO 88% average x15 meals Estimated Energy Expenditure (kcals/day) 1124-8024 kcal/day (30-35 kcal/kg CBW for acute state, surgical healing) Estimated Protein Required (g/day) 86-108 gm/day (1.2-1.5 gm/kg CBW for acute state, surgical healing) Estimated Fluid Required (l/day) 2.2-2.5 L/day (1 ml/kcal/day for maintenance) Problem/Etiology/Signs/Symptoms Increased nutritional needs related to metabolic demands as evidenced by estimated nutritional requirements for acute state. *ongoing, met w/ current good PO intakes Expected Outcomes/Goals - Monitor appetite and PO intakes w/ goal of pt meeting at least 75% of estimated nutritional needs, labs trending WNL, normal GI function, and skin integrity/wt maintenance Dietitian Recommendations * Recommend continuing regular diet Follow Up Low Risk: F/U in 7 days
--- NOTE | 2020-03-28 13:40 | NUR ---
Dietitian Recommendations * Recommend continuing regular diet LP, RD Please refer to Nutrition F/U for details.
[2020-03-28] MEDS: KETOROLAC TROMETHAMINE 30 MG VIAL IVP PRN (15:47)
--- NOTE | 2020-03-28 16:10 | NUR ---
Blood Transfusion 1st unit of PRBC transfusing at this time. Patient educated regarding possible adverse effects such as shortness of breath, fever, and chills. Patient verbalized understanding regarding teaching. Safety precautions enforced.
--- NOTE | 2020-03-28 19:24 | NUR ---
Opening Note: Received report from AM nurse using SBAR approach.
--- NOTE | 2020-03-28 19:25 | NUR ---
Closing Notes Patient endorsed o night shit RN using SBAR format. No signs of distress noted.
--- NOTE | 2020-03-28 20:02 | NUR ---
Blood Transfusion: 1 unit of PRBC transfusing at this time. Patient educated regarding possible adverse effects such as shortness of breath, fever, and chills. Patient verbalized understanding regarding teaching. Safety precautions enforced. Monitoring for adverse effects.
[2020-03-28] MEDS: SENNOSIDES/DOCUSATE SODIUM 1 TAB TABLET(SENOKOT-S) PO SCH (20:30)
--- NOTE | 2020-03-28 20:57 | NUR ---
IV Site: Right hand IV site dislodged, New 20G inserted to Right AC, patient tolerated well. IV flushes and blood return noted. Dressing clean dry and intact.
[2020-03-28 21:13] LABS: MYCOPLASMA PNEUMONIAE IgM <770 U/mL (0-769)
--- NOTE | 2020-03-28 22:30 | NUR ---
Blood Transfusion: 1 unit of PRBC transfusion completed. Patient denies any pain and or discomfort at this time. Tolerated transfusion with no adverse effects. Safety precautions enforced. Monitoring for adverse effects.
[2020-03-28] MEDS ORDERED: FUROSEMIDE 20 MG/2 ML VIAL ONE (23:11)
--- NOTE | 2020-03-28 23:37 | NUR ---
RN Rounds: Patient in bed resting, denies pain and or discomfort, all safety measures maintained, no other needs at this time. No acute distress noted. Bed in lowest locked position.
[2020-03-29] VITALS (15 sets, daily range): BP systolic 102–141
--- NOTE | 2020-03-29 01:07 | NUR ---
RN Rounds: Patient in bed resting with eyes closed, all safety measures maintained, no other needs at this time. No acute distress noted. Bed in lowest locked position. Call light within reach.
--- NOTE | 2020-03-29 03:04 | NUR ---
RN Rounds: Patient in bed awake watching TV, patient requested cranberry juice, container given as requested, denies pain and or discomfort, all safety measures maintained, no other needs at this time. No acute distress noted. Bed in lowest locked position.
[2020-03-29 05:28] LABS: BASOPHILS # (AUTO) 0.1 K/uL (0.0-0.2); BASOPHILS % (AUTO) 0.8 % (0.0-2.0); EOSINOPHILS # (AUTO) 0.5 K/uL (0.0-0.4); EOSINOPHILS % (AUTO) 4.9 % (0.0-4.0); HEMATOCRIT 28.2 % (36-54); HEMOGLOBIN 9.7 g/dL (14.0-18.0); LYMPHOCYTES # (AUTO) 2.6 K/uL (1.0-5.5); LYMPHOCYTES % (AUTO) 23.6 % (20.5-51.5); MEAN CORPUSCULAR HEMOGLOBIN 32 pg (27-31); MEAN CORPUSCULAR HGB CONC 34 % (32-36); MEAN CORPUSCULAR VOLUME 92 fL (79.0-98.0); MONOCYTES # (AUTO) 0.9 K/uL (0.0-1.0); MONOCYTES % (AUTO) 8.5 % (1.7-9.3); NEUTROPHILS # (AUTO) 6.8 K/uL (1.8-7.7); NEUTROPHILS % (AUTO) 62.2 % (40.0-70.0); PLATELET COUNT (AUTO) 493 K/uL (130-430); RED BLOOD CELL COUNT(AUTO) 3.06 MIL/uL (4.2-6.2); RED CELL DISTRIBUTION WIDTH 17.9 % (9.0-15.0)
[2020-03-29 05:56] LABS: CALCIUM 8.4 mg/dL (8.4-11.0); CREATININE 0.81 mg/dL (0.55-1.30); POTASSIUM 4.2 mmol/L (3.5-5.1)
--- NOTE | 2020-03-29 07:00 | NUR ---
Closing Note: Patient report given to AM RN via SBAR report.
--- NOTE | 2020-03-29 07:20 | NUR ---
Received report and patient. Patient in bed sleeping with side rails x 3 up. Call light with in reach.
[2020-03-29] MEDS: KETOROLAC TROMETHAMINE 30 MG VIAL IVP PRN ×2 (07:41→20:22)
--- NOTE | 2020-03-29 08:30 | NUR ---
MD Galicia at bedside.
[2020-03-29] MEDS: LINEZOLID 300 ML IV SCH ×2 (08:44→20:23)
[2020-03-29] MEDS: ASPIRIN 325 MG TABLET PO SCH (08:44)
[2020-03-29] MEDS: tiZANidine HCL 4 MG TABLET PO SCH ×3 (08:45→20:22)
[2020-03-29] MEDS: Effexor 37.5 MG TAB PO SCH ×3 (08:45→20:22)
[2020-03-29] MEDS: GEMFIBROZIL 600 MG TABLET (LOPID) PO SCH ×2 (08:45→20:22)
--- NOTE | 2020-03-29 08:45 | NUR ---
MD Wiseman at bedside assessing patient.
[2020-03-29] MEDS: POLYETHYLENE GLYCOL 3350, 17 GM/ POWD.PACK PO SCH (08:46)
[2020-03-29] MEDS: OXYCODONE/ACETAMINOPHEN *10*mg/325 mg TABLET PO PRN (08:51)
--- NOTE | 2020-03-29 09:29 | NUR ---
MD Chew called. Gave update via telephone as requested. new order lasix 10 mg IVP one time now and one at 1500 today, CBC, BMP, and chest x-ray tomorrow and Wednesday, patient may be transferred today to tele. Orders placed.
[2020-03-29] MEDS ORDERED: FUROSEMIDE 20 MG/2 ML VIAL IVP ONE ×2 (09:30→15:00)
--- NOTE | 2020-03-29 18:02 | NUR ---
Patient transferred via wheel chair to room 119 A. Endorsed patient and gave report to MST nurse. Patient assisted into bed with side rails x 3 placed, call light with in reach. Patient in no acute distress, denies pain, breathing even and unlabored. Patient belongings sent with patient. Patient stated thank you for care. Placed on tele leads provided by tele unit.
--- NOTE | 2020-03-29 18:15 | NUR ---
transferred notes rec patient from icu via wheelchair. awake alert with [address] resp easy and unlabored. no osb noted. chest tube to the left chest area in place and connected to suction. no leaking noted. bed to the lowest position and side rails up and locked. call light within reached and knows when to call for assistance.
--- NOTE | 2020-03-29 19:15 | NUR ---
OPENING NOTE REPORT RECEIVED FROM DAYSHIFT NURSE. PATIENT RECEIVED LYING IN BED, AWAKE, WATCHING TV, AOX4, NO S/S OF ACUTE DISTRESS NOTED. BREATHING IS EVEN AND UNLABORED. HOB RAISED. IV SITE IS PATENT, NO SIGNS OF INFILTRATION OR INFECTION NOTED. CHEST TUBE ATTACHED, SECURED, ON CONTINUOUS SUCTIONING, OPERATING WELL. AUGUSTE ATTACHED, SECURED, AND DRAINING BY GRAVITY. CALL LIGHT WITH PATIENT. BED IS LOCKED AND AT LOWEST POSITION. WILL CONTINUE TO MONITOR.
[2020-03-29] MEDS: SENNOSIDES/DOCUSATE SODIUM 1 TAB TABLET(SENOKOT-S) PO SCH (20:22)
--- NOTE | 2020-03-29 20:22 | NUR ---
PAIN PATIENT COMPLAINING OF PAIN, PRN MEDICATION ADMINISTERED. CALL LIGHT WITH PATIENT. WILL CONTINUE TO MONITOR AND REASSESS.
--- NOTE | 2020-03-29 22:00 | NUR ---
ROUNDS PATIENT IN BED, ASLEEP AT THIS TIME. HOB RAISED. NO SIGNS OF DISCOMFORT. CALL LIGHT WITH PATIENT. WILL CONTINUE TO MONITOR.
[2020-03-30] VITALS: BP_SYST 124
--- NOTE | 2020-03-30 | NUR ---
ROUNDS PATIENT IN BED, SLEEPING COMFORTABLY. NO S/S OF ACUTE DISTRESS NOTED. BREATHING EVEN AND UNLABORED. HOB RAISED. CALL LIGHT WITH PATIENT. BED IS LOCKED AND AT LOWEST POSITION. WILL CONTINUE TO MONITOR.
--- NOTE | 2020-03-30 02:00 | NUR ---
ROUNDS/SNACKS PATIENT REQUESTED FOR SNACKS, PROVIDED BY RN. NO S/S OF ACUTE DISTRESS. CALL LIGHT WITH PATIENT.
--- NOTE | 2020-03-30 04:00 | NUR ---
ROUNDS PATIENT IN BED, SLEEPING, NO CHANGES FROM PREVIOUS CONDITION. CALL LIGHT WITH PATIENT. WILL CONTINUE TO MONITOR.
--- NOTE | 2020-03-30 06:00 | NUR ---
REMOVED AUGUSTE AUGUSTE REMOVED AT THIS TIME. PATIENT TOLERATED WELL. WILL MONITOR FOR OUTPUT.
[2020-03-30 06:09] LABS: BASOPHILS # (AUTO) 0.1 K/uL (0.0-0.2); BASOPHILS % (AUTO) 1.2 % (0.0-2.0); EOSINOPHILS # (AUTO) 0.5 K/uL (0.0-0.4); EOSINOPHILS % (AUTO) 5.6 % (0.0-4.0); HEMATOCRIT 30.6 % (36-54); HEMOGLOBIN 10.6 g/dL (14.0-18.0); LYMPHOCYTES # (AUTO) 2.7 K/uL (1.0-5.5); LYMPHOCYTES % (AUTO) 28.1 % (20.5-51.5); MEAN CORPUSCULAR HEMOGLOBIN 32 pg (27-31); MEAN CORPUSCULAR HGB CONC 35 % (32-36); MEAN CORPUSCULAR VOLUME 93 fL (79.0-98.0); MONOCYTES # (AUTO) 0.5 K/uL (0.0-1.0); MONOCYTES % (AUTO) 5.6 % (1.7-9.3); NEUTROPHILS # (AUTO) 5.6 K/uL (1.8-7.7); NEUTROPHILS % (AUTO) 59.5 % (40.0-70.0); PLATELET COUNT (AUTO) 569 K/uL (130-430); RED BLOOD CELL COUNT(AUTO) 3.28 MIL/uL (4.2-6.2); RED CELL DISTRIBUTION WIDTH 17.8 % (9.0-15.0); WHITE BLOOD COUNT (AUTO) 9.5 K/uL (4.8-10.8)
--- NOTE | 2020-03-30 06:32 | NUR ---
CLOSING NOTE PATIENT IN BED, AWAKE, NO S/S OF ACUTE DISTRESS NOTED. BREATHING EVEN AND UNLABORED. HOB RAISED. IV SITE IS PATENT, NO SIGNS OF INFILTRATION OR INFECTION NOTED. CHEST TUBE ATTACHED, AND OPERATING, CONTINUOUS SUCTIONING. AUGUSTE HAS BEEN REMOVED, PATIENT HAS YET TO VOID OR HAS HAD THE URGE TO VOID, WILL MONITOR. ALL NEEDS MET THROUGHOUT SHIFT. FALL AND SAFETY PRECAUTIONS MAINTAINED THROUGHOUT SHIFT. WILL CONTINUE TO MONITOR UNTIL PATIENT CARE IS ENDORSED TO ONCOMING DAYSHIFT NURSE.
[2020-03-30 07:30] VITALS: BP_SYST 151
--- NOTE | 2020-03-30 07:30 | NUR ---
Opening note patient resting in bed, a/ox4, denies pain, assessment complete, IV lines are patent and infusing well, chest tube is intact and to low wall suction, monitoring drainage, patient is not in any distress at this time, educated on plan of care and call light system, he verbalized understanding, call light placed within reach, fall and aspiration precautions in place, bed in lowest position, three side rails up, bed alarm on.
[2020-03-30 07:36] LABS: CALCIUM 9.1 mg/dL (8.4-11.0); CREATININE 0.74 mg/dL (0.55-1.30); POTASSIUM 4.3 mmol/L (3.5-5.1)
[2020-03-30] MEDS: GEMFIBROZIL 600 MG TABLET (LOPID) PO SCH ×2 (08:06→21:07)
[2020-03-30] MEDS: Effexor 37.5 MG TAB PO SCH ×3 (08:06→21:07)
[2020-03-30] MEDS: ASPIRIN 325 MG TABLET PO SCH (08:06)
[2020-03-30] MEDS: LINEZOLID 300 ML IV SCH ×2 (08:07→19:34)
[2020-03-30] MEDS: POLYETHYLENE GLYCOL 3350, 17 GM/ POWD.PACK PO SCH (08:07)
[2020-03-30] MEDS: KETOROLAC TROMETHAMINE 30 MG VIAL IVP PRN ×2 (08:09→19:34)
[2020-03-30] MEDS: tiZANidine HCL 4 MG TABLET PO SCH ×3 (08:46→21:07)
--- NOTE | 2020-03-30 08:47 | NUR ---
RN rounds patient resting in bed, awake, states pain medication was helpful, he was administered all but one scheduled medication by Sabino RN, educated patient on scheduled medication uses and potential side effects, he verbalized understanding and tolerated well, provided with more coffee, no other needs at this time, continuing to monitor, bed in lowest position, three side rails up, bed alarm on, bed close to nursing station, fall and aspiration precautions in place .
--- NOTE | 2020-03-30 11:00 | NUR ---
RN rounds patient resting in bed, awake, no signs of distress, chest tube intact, no air leak, patient denies shortness of breath, denies pain, continuing to monitor, bed in lowest position, three side rails up, bed alarm on, bed close to nursing station, fall and aspiration precautions in place, call light within reach.
--- NOTE | 2020-03-30 11:50 | NUR ---
RN rounds Patient out of bed to use the urinal and he also had a large, soft BM, without straining, he tolerated well, assisted back into bed, chest tube intact to suction, IV line is patent and infusing well, call light within reach, fall and aspiration precautions in place, bed in lowest position, two side rails up.
[2020-03-30 12:00] VITALS: BP_SYST 124
--- NOTE | 2020-03-30 13:07 | NUR ---
RN rounds patient resting in bed, awake, denies pain, no signs of distress, chest tube is intact, patient is on room air, educated patient on scheduled medications uses and potential side effects, he verbalized understanding and tolerated well, placed belongings within reach of patient, continuing to monitor, bed in lowest position, two side rails up, call light within reach, fall and aspiration precautions in place. Addendum: 03/30/20 at 1513 by Murray Chapa RN [id number]*
--- NOTE | 2020-03-30 13:50 | NUR ---
RN rounds patient resting in bed, was assisted to bedside commode by INSTRUCTIONAL TECHNOLOGY COORDINATOR, patient was able to get back into bed by himself, chest tube intact, dressing is clean, dry and intact, patient had another large, soft BM and he voided, was able to clean himself, continuing to monitor, bed in lowest position, two side rails up, call light within reach, fall and aspiration precautions in place.
[2020-03-30 16:00] VITALS: BP_SYST 136
--- NOTE | 2020-03-30 18:33 | NUR ---
Closing note patient resting in bed, eating dinner, aspiration precautions in place, chest tube intact, dressing clean, dry and intact, all needs met, will endorse report to NOC shift nurse, bed in lowest position, two side rails up, call light within reach, fall precautions in place.
--- NOTE | 2020-03-30 19:15 | NUR ---
OPENING NOTE REPORT RECEIVED FROM DAYSHIFT NURSE. PATIENT RECEIVED LYING IN BED, WATCHING TV, FINISHING UP DINNER, AOX4, HOB RAISED UP. NO S/S OF ACUTE DISTRESS NOTED. BREATHING EVEN AND UNLABORED. CHEST TUBE ATTACHED, ON CONTINUOUS SUCTIONING. IV SITES ARE PATENT, NO SIGNS OF INFILTRATION OR INFECTION NOTED. CALL LIGHT WITH PATIENT. BED IS LOCKED AND AT LOWEST POSITION. WILL CONTINUE TO MONITOR.
[2020-03-30 20:00] VITALS: BP_SYST 142
[2020-03-30] MEDS: OXYCODONE/ACETAMINOPHEN *10*mg/325 mg TABLET PO PRN (21:06)
--- NOTE | 2020-03-30 21:06 | NUR ---
PAIN PATIENT COMPLAINED OF 9/10 PAIN, PRN MEDICATION ADMINISTERED. CALL LIGHT WITH PATIENT. WILL CONTINUE TO MONITOR.
[2020-03-30] MEDS: SENNOSIDES/DOCUSATE SODIUM 1 TAB TABLET(SENOKOT-S) PO SCH (21:07)
--- NOTE | 2020-03-30 23:00 | NUR ---
ROUNDS PATIENT IN BED, EYES CLOSED, APPEARS TO BE ASLEEP. NO SIGNS OF DISCOMFORT NOTED. CHEST RISE AND FALL EVEN BILATERALLY. CALL LIGHT WITH PATIENT. WILL CONTINUE TO MONITOR.
[2020-03-31] VITALS: BP_SYST 139
--- NOTE | 2020-03-31 01:00 | NUR ---
ROUNDS PATIENT IN BED, SLEEPING, NO CHANGE FROM PREVIOUS CONDITION. ALL NEEDS MET. CALL LIGHT WITH PATIENT. WILL CONTINUE TO MONITOR.
--- NOTE | 2020-03-31 03:00 | NUR ---
EMPTIED URINAL PATIENT VOIDED IN URINAL, EMPTIED BY RN. PATIENT BACK IN BED, NO S/S OF ACUTE DISTRESS. ALL NEEDS MET. CALL LIGHT WITH PATIENT. WILL CONTINUE TO MONITOR
[2020-03-31] MEDS: KETOROLAC TROMETHAMINE 30 MG VIAL IVP PRN ×2 (05:19→13:56)
--- NOTE | 2020-03-31 06:33 | NUR ---
CLOSING NOTE PATIENT IN BED, ASLEEP AT THIS TIME. NO S/S OF ACUTE DISTRESS NOTED. BREATHING IS EVEN AND UNLABORED, HOB RAISED. CHEST TUBE ATTACHED, DRESSING CLEAN, DRY, AND INTACT, ON CONTINUOUS SUCTIONING. IV SITES PATENT, NO SIGNS OF INFILTRATION OR INFECTION NOTED. ALL NEEDS MET THROUGHOUT SHIFT. FALL AND SAFETY PRECAUTIONS MAINTAINED THROUGHOUT SHIFT. WILL CONTINUE TO MONITOR UNTIL PATIENT CARE IS ENDORSED TO ONCOMING DAYSHIFT NURSE.
[2020-03-31 07:32] LABS: BASOPHILS # (AUTO) 0.1 K/uL (0.0-0.2); BASOPHILS % (AUTO) 1.1 % (0.0-2.0); EOSINOPHILS # (AUTO) 0.7 K/uL (0.0-0.4); EOSINOPHILS % (AUTO) 6.6 % (0.0-4.0); HEMATOCRIT 29.9 % (36-54); HEMOGLOBIN 10.1 g/dL (14.0-18.0); LYMPHOCYTES % (AUTO) 19.5 % (20.5-51.5); MEAN CORPUSCULAR HEMOGLOBIN 32 pg (27-31); MEAN CORPUSCULAR HGB CONC 34 % (32-36); MEAN CORPUSCULAR VOLUME 94 fL (79.0-98.0); MONOCYTES # (AUTO) 0.4 K/uL (0.0-1.0); NEUTROPHILS # (AUTO) 6.9 K/uL (1.8-7.7); NEUTROPHILS % (AUTO) 68.8 % (40.0-70.0); PLATELET COUNT (AUTO) 585 K/uL (130-430); RED BLOOD CELL COUNT(AUTO) 3.18 MIL/uL (4.2-6.2); RED CELL DISTRIBUTION WIDTH 17.3 % (9.0-15.0)
[2020-03-31 07:50] LABS: CALCIUM 8.9 mg/dL (8.4-11.0); CREATININE 0.76 mg/dL (0.55-1.30); POTASSIUM 4.9 mmol/L (3.5-5.1)
--- NOTE | 2020-03-31 08:00 | NUR ---
Slept well as verbalized on room air oxygen saturation 99% able to get out of bed to BSC independently safety/fall , chest tube precaution initiated patient well communicate what are the do'S and dnt , using IS reaching 1500 ml , with intermittent sharp pain left sideof the chest , chest tube on low continuous suction no leaking, discussed to patient plan of care ,pain management, verbalized understanding,
[2020-03-31] MEDS: LINEZOLID 300 ML IV SCH ×2 (08:37→20:08)
[2020-03-31] MEDS: GEMFIBROZIL 600 MG TABLET (LOPID) PO SCH ×2 (08:37→20:07)
[2020-03-31] MEDS: Effexor 37.5 MG TAB PO SCH ×3 (08:37→20:07)
[2020-03-31] MEDS: ASPIRIN 325 MG TABLET PO SCH (08:38)
[2020-03-31] MEDS: OXYCODONE/ACETAMINOPHEN *10*mg/325 mg TABLET PO PRN ×2 (08:38→19:25)
[2020-03-31] MEDS: tiZANidine HCL 4 MG TABLET PO SCH ×3 (08:38→20:07)
[2020-03-31] MEDS: POLYETHYLENE GLYCOL 3350, 17 GM/ POWD.PACK PO SCH (08:38)
[2020-03-31 08:41] VITALS: BP_SYST 146
--- NOTE | 2020-03-31 09:00 | NUR ---
Chest tube off the low continuous suction , kept on gravity patient is aware will monitor.
--- NOTE | 2020-03-31 11:01 | NUR ---
Rounds Patient sleeping in sitting position chest tube intact on gravity,drainage fluctuate on breathing , will monitor.
--- NOTE | 2020-03-31 11:39 | NUR ---
Patient able to ge out of bed to BSC for bowl movement,perineal care given , back to bed , chest tube intact,with fluctuation on breathing, will monitor.
[2020-03-31 11:43] VITALS: BP_SYST 157
--- NOTE | 2020-03-31 13:45 | NUR ---
Chest tube removed by the thoracic surgeon Dr. CHEW, packed gauze dressing with KY sealed by plaster instructed not to removed dressing till keep dressing dry/clean verbalized understanding , drainage since morning 50 ml , using IS REACHING 1500 ML will monitor. Addendum: 03/31/20 at 1418 by Fernanda Baumann RN Portable CXR done result seen by Dr. Chew
--- NOTE | 2020-03-31 14:35 | NUR ---
HIGH ALERT NOTE: Called SHRUTI Witt back at [phone] identified within the medical roster to verify physician authenticity ,to resume lovenox tonight.
[2020-03-31] MEDS: SENNOSIDES/DOCUSATE SODIUM 1 TAB TABLET(SENOKOT-S) PO SCH (15:07)
[2020-03-31 15:20] VITALS: BP_SYST 151
--- NOTE | 2020-03-31 18:33 | NUR ---
Patient oxygen saturation 98% with 2 L/NC, left lateral chest dressing intact no bleeding, denies any pain, using IS reaching 1500 ml, encouraged to ambulate verbalized understanding.
--- NOTE | 2020-03-31 19:15 | NUR ---
OPENING NOTE/PULLED IV SITE/PAIN REPORT RECEIVED FROM DAYSHIFT NURSE. PATIENT RECEIVED LYING IN BED, EATING DINNER, AOX4, NO S/S OF ACUTE DISTRESS NOTED. BREATHING IS EVEN AND UNLABORED, HOB RAISED, NASAL CANULA ATTACHED PROPERLY, ON 2L OF OXYGEN. IV ON LEFT ARM WAS ACCIDENTALLY PULLED OUT, CATHETER FULLY INTACT, NO ACTIVE BLEEDING NOTED. IV SITE ON RIGHT ARM PATENT, NO SIGNS OF INFILTRATION OR INFECTION NOTED. PATIENT COMPLAINED OF PAIN AT THIS TIME, WILL ADMINISTER PRN MEDICATION. CALL LIGHT WITH PATIENT. WILL CONTINUE TO MONITOR.
[2020-03-31 20:00] VITALS: BP_SYST 141
[2020-03-31] MEDS: ENOXAPARIN SODIUM 40 MG/0.4 ML SYRINGE SUBCUT SCH (20:08)
--- NOTE | 2020-03-31 21:00 | NUR ---
ROUNDS/BM PATIENT IN BED, INFORMED RN HE HAD A BM IN BSC, ALSO URINAL HAS URINE, BOTH CLEANED BY RN. ALL NEEDS MET AT THIS TIME. CALL LIGHT WITH PATIENT. WILL CONTINUE TO MONITOR.
--- NOTE | 2020-03-31 23:00 | NUR ---
SNACKS PATIENT REQUESTED FOR SOME SNACKS, PROVIDED BY RN. NO S/S OF ACUTE DISTRESS. CALL LIGHT WITH PATIENT. WILL CONTINUE TO MONITOR.
[2020-04-01] VITALS: BP_SYST 138
--- NOTE | 2020-04-01 01:00 | NUR ---
EMPTIED URINAL AND BSC URINAL AND BSC EMPTIED AT THIS TIME. PATIENT ASLEEP. NO SIGNS OF DISCOMFORT NOTED. ALL NEEDS MET. CALL LIGHT WITH PATIENT. WILL CONTINUE TO MONITOR.
--- NOTE | 2020-04-01 03:00 | NUR ---
ROUNDS PATIENT ASLEEP. HOB RAISED. NO SIGNS OF DISCOMFORT. NASAL CANULA ATTACHED PROPERLY, ON 2L OF OXYGEN. CALL LIGHT WITH PATIENT. WILL CONTINUE TO MONITOR.
--- NOTE | 2020-04-01 05:00 | NUR ---
ROUNDS PATIENT IN BED, SLEEPING. NO SIGNS OF DISCOMFORT. CHEST RISE AND FALL EVEN BILATERALLY. CALL LIGHT WITH PATIENT. WILL CONTINUE TO MONITOR.
[2020-04-01] MEDS: OXYCODONE/ACETAMINOPHEN *10*mg/325 mg TABLET PO PRN ×4 (06:08→22:01)
--- NOTE | 2020-04-01 06:24 | NUR ---
CLOSING NOTE/PAIN PATIENT COMPLAINED OF PAIN, PRN MEDICATION ADMINISTERED. PATIENT IN BED, WATCHING TV, NO S/S OF ACUTE DISTRESS. BREATHING EVEN AND UNLABORED. HOB RAISED, NASAL CANULA ATTACHED PROPERLY, ON 2L OF OXYGEN. IV SITE IS PATENT, NO SIGNS OF INFILTRATION OR INFECTION NOTED. ALL NEEDS MET THROUGHOUT SHIFT. FALL AND SAFETY PRECAUTIONS MAINTAINED THROUGHOUT SHIFT. WILL CONTINUE TO MONITOR UNTIL PATIENT CARE IS ENDORSED TO ONCOMING DAYSHIFT NURSE.
[2020-04-01 06:39] LABS: BASOPHILS # (AUTO) 0.2 K/uL (0.0-0.2); BASOPHILS % (AUTO) 1.5 % (0.0-2.0); EOSINOPHILS # (AUTO) 0.8 K/uL (0.0-0.4); HEMATOCRIT 33.4 % (36-54); HEMOGLOBIN 11.2 g/dL (14.0-18.0); LYMPHOCYTES # (AUTO) 2.2 K/uL (1.0-5.5); LYMPHOCYTES % (AUTO) 20.3 % (20.5-51.5); MEAN CORPUSCULAR HEMOGLOBIN 31 pg (27-31); MEAN CORPUSCULAR HGB CONC 33 % (32-36); MEAN CORPUSCULAR VOLUME 94 fL (79.0-98.0); MONOCYTES # (AUTO) 0.5 K/uL (0.0-1.0); MONOCYTES % (AUTO) 4.7 % (1.7-9.3); NEUTROPHILS # (AUTO) 7.3 K/uL (1.8-7.7); NEUTROPHILS % (AUTO) 66.5 % (40.0-70.0); PLATELET COUNT (AUTO) 631 K/uL (130-430); RED BLOOD CELL COUNT(AUTO) 3.56 MIL/uL (4.2-6.2); RED CELL DISTRIBUTION WIDTH 17.4 % (9.0-15.0)
[2020-04-01 07:15] LABS: CALCIUM 9.5 mg/dL (8.4-11.0); CREATININE 0.86 mg/dL (0.55-1.30); POTASSIUM 4.7 mmol/L (3.5-5.1)
--- NOTE | 2020-04-01 07:35 | NUR ---
OPENING NOTES: RECEIVED PATIENT FROM TECHNICAL ACCOUNT EXECUTIVE NURSE. PATIENT IS ASLEEP LAYING DOWN IN BED. PATIENT IS TOLERATING OXYGEN ON 2 L NASAL CANNULA WITH NO SIGNS OF DISTRESS OR SHORTNESS OF BREATH NOTED. IV SITES ARE PATENT WITH NO SIGNS OF INFILTRATION NOTED. COMMODE AND URINAL AT BEDSIDE FOR PATIENT USE. PATIENT IN STABLE CONDITION. SAFETY, FALL, AND ASPIRATION PRECAUTIONS ARE IN PLACE. BED LOCKED IN LOWEST POSITION WITH CALL LIGHT IN REACH. WILL CONTINUE TO MONITOR PATIENT FOR ANY CHANGES.
[2020-04-01] MEDS: GEMFIBROZIL 600 MG TABLET (LOPID) PO SCH ×2 (08:11→20:41)
[2020-04-01] MEDS: POLYETHYLENE GLYCOL 3350, 17 GM/ POWD.PACK PO SCH (08:12)
[2020-04-01] MEDS: Effexor 37.5 MG TAB PO SCH ×3 (08:12→20:41)
[2020-04-01] MEDS: LINEZOLID 300 ML IV SCH ×2 (08:12→20:41)
[2020-04-01] MEDS: ASPIRIN 325 MG TABLET PO SCH (08:12)
[2020-04-01] MEDS: tiZANidine HCL 4 MG TABLET PO SCH ×3 (08:12→20:41)
[2020-04-01 08:18] VITALS: BP_SYST 158
--- NOTE | 2020-04-01 09:59 | NUR ---
MD CALLED: SPOKE WITH DR. WALKER AND INFORMED HIM ABOUT THE RESULTS OF THE CHEST X-RAY THIS MORNING. MD STATED HE IS SIGNING OFF THE CASE AND PATIENT IS CLEARED FOR DISCHARGE FROM HIS STANDPOINT. WILL NOTIFY DR. DYSON.
--- NOTE | 2020-04-01 10:03 | NUR ---
RN ROUNDS: PATIENT IS AWAKE AND ALERT x4 SITTING ON THE BEDSIDE COMMODE. PT WITH PATIENT. PATIENT STATED HE WILL WANT HIS PAIN MEDICATION AFTER WALKING WITH PHYSICAL THERAPY. INFORMED PATIENT TO LET ME KNOW WHEN HE IS FINISHED. PATIENT IN STABLE CONDITION. WILL CONTINUE TO MONITOR PATIENT FOR ANY CHANGES.
--- NOTE | 2020-04-01 10:59 | NUR ---
PATIENT WAS SEEN FOR PHYSICAL THERAPY TREATMENT. REAL ESTATE INVESTMENT ANALYST PRESENT. PATIENT AMBULATED WITH THE FWW TO REHAB ROOM WITH SBA TO SUPERVISED ASSISTANCE. HE REPORTED FEELING LIGHT HEADED, THEREFORE STAIR CLIMBING WAS DEFERRED, AND WAS ALLOWED TO REST. SYMPTOM PERSISTED AND HE WAS TRANSFERRED BACK TO HIS ROOM VIA WHEELCHAIR. REPORTED TO PATIENT'S RN. PATIENT EXPRESSED CONCERNS ABOUT HIS ABILITY TO CARE FOR HIMSELF WHEN HE GOES HOME. HE IS UNCERTAIN IF HIS DAUGHTER WILL BE ABLE TO GIVE ASSISTANCE.
[2020-04-01 11:36] VITALS: BP_SYST 159
[2020-04-01 11:53] VITALS: BP_SYST 135
--- NOTE | 2020-04-01 12:10 | NUR ---
RN ROUNDS: PATIENT IS AWAKE AND ALERT x4 LAYING DOWN IN BED. PATIENT DENIES PAIN AT THE MOMENT. PATIENT IS TOLERATING OXYGEN ON 2 L NASAL CANNULA WITH NO SIGNS OF DISTRESS OR SHORTNESS OF BREATH NOTED. IV SITE IS PATENT WITH NO SIGNS OF INFILTRATION NOTED. PATIENT IN STABLE CONDITION. WILL CONTINUE TO MONITOR PATIENT FOR ANY CHANGES.
--- NOTE | 2020-04-01 14:45 | NUR ---
RN ROUNDS: PATIENT IS AWAKE AND ALERT x4 SITTING UP IN BED. PATIENT IS TOLERATING OXYGEN ON 2 L NASAL CANNULA WITH NO SIGNS OF DISTRESS OR SHORTNESS OF BREATH NOTED. IV SITE IS PATENT WITH NO SIGNS OF INFILTRATION NOTED. URINAL EMPTIED. PATIENT IN STABLE CONDITION. WILL CONTINUE TO MONITOR PATIENT FOR ANY CHANGES.
[2020-04-01 16:13] VITALS: BP_SYST 153
--- NOTE | 2020-04-01 16:50 | NUR ---
RN ROUNDS: PATIENT IS AWAKE AND ALERT x4 LAYING DOWN IN BED. PATIENT TOLERATING OXYGEN ON 2 L NASAL CANNULA WITH NO SIGNS OF DISTRESS OR SHORTNESS OF BREATH NOTED IV SITES ARE PATENT WITH NO SIGNS OF INFILTRATION NOTED. PATIENT IN STABLE CONDITION. WILL CONTINUE TO MONITOR PATIENT FOR ANY CHANGES.
--- NOTE | 2020-04-01 18:49 | NUR ---
CLOSING NOTES: PATIENT IS AWAKE AND ALERT x4 LAYING DOWN IN BED. PATIENT IS TOLERATING OXYGEN ON 2 L NASAL CANNULA WITH NO SIGNS OF DISTRESS OR SHORTNESS OF BREATH NOTED. IV SITES ARE PATENT WITH NO SIGNS OF INFILTRATION NOTED. COMMODE AND URINAL AT BEDSIDE FOR PATIENT USE. PATIENT IN STABLE CONDITION. SAFETY, FALL, AND ASPIRATION PRECAUTIONS REMAINED IN PLACE THROUGHOUT THE SHIFT. BED LOCKED IN LOWEST POSITION WITH CALL LIGHT IN REACH. WILL ENDORSE PATIENT CARE TO ONCOMING DIRECTOR MATERNAL CHILD NURSE.
--- NOTE | 2020-04-01 19:15 | NUR ---
OPENING NOTES: PATIENT IS AWAKE AND ALERT x4 LAYING DOWN IN BED. PATIENT IS REPORTING SEVERE PAIN TO INCISION, INFORMED PATIENT THAT HIS PAIN MEDICATION IS NOT DUE YET. WILL CALL MD FOR PAIN MEDICATION ORDER. PATIENT IS TOLERATING OXYGEN ROOM WITH NO SIGNS OF DISTRESS OR SHORTNESS OF BREATH NOTED. IV SITES ARE PATENT WITH NO SIGNS OF INFILTRATION NOTED. COMMODE AND URINAL AT BEDSIDE FOR PATIENT USE. PATIENT IN STABLE CONDITION. SAFETY, FALL, AND ASPIRATION PRECAUTIONS REMAINED IN PLACE THROUGHOUT THE SHIFT. BED LOCKED IN LOWEST POSITION WITH CALL LIGHT IN REACH. WILL MONITOR.
--- NOTE | 2020-04-01 19:24 | NUR ---
HIGH ALERT NOTE: Called Dr. Venegas back at identified within the medical roster to verify physician authenticity.
[2020-04-01] MEDS ORDERED: MORPHINE 4 MG/ML INJ. SYRINGE IVP ONE (19:30)
[2020-04-01 20:00] VITALS: BP_SYST 138
[2020-04-01] MEDS: SENNOSIDES/DOCUSATE SODIUM 1 TAB TABLET(SENOKOT-S) PO SCH (20:41)
[2020-04-01] MEDS: ENOXAPARIN SODIUM 40 MG/0.4 ML SYRINGE SUBCUT SCH (20:42)
--- NOTE | 2020-04-01 22:01 | NUR ---
PAIN PATIENT REPORTING SEVERE PAIN, PRN MEDICATION ADMINISTERED ORDERED. CALL LIGHT WITH PATIENT. WILL CONTINUE TO MONITOR AND REASSESS.
--- NOTE | 2020-04-02 00:15 | NUR ---
RN ROUNDS: PATIENT IN BED, RESTING COMFORTABLY WATCHING TELEVISION. NO S/S OF ACUTE DISTRESS NOTED. BREATHING EVEN AND UNLABORED. HOB RAISED. CALL LIGHT WITH PATIENT. BED IS LOCKED AND AT LOWEST POSITION. WILL CONTINUE TO MONITOR.
[2020-04-02 00:44] VITALS: BP_SYST 146
[2020-04-02] MEDS: OXYCODONE/ACETAMINOPHEN *10*mg/325 mg TABLET PO PRN ×4 (02:17→15:19)
--- NOTE | 2020-04-02 02:17 | NUR ---
PAIN PATIENT REPORTING SEVERE PAIN, PRN MEDICATION ADMINISTERED ORDERED. CALL LIGHT WITH PATIENT. WILL CONTINUE TO MONITOR AND REASSESS.
--- NOTE | 2020-04-02 03:39 | NUR ---
HIGH ALERT NOTE: Called Dr. Venegas back at identified within the medical roster to verify physician authenticity.
[2020-04-02] MEDS ORDERED: ALPRAZolam 0.25 MG TABLET PO ONE (03:45)
--- NOTE | 2020-04-02 06:17 | NUR ---
PAIN PATIENT REPORTING SEVERE PAIN, PRN MEDICATION ADMINISTERED ORDERED. CALL LIGHT WITH PATIENT. WILL CONTINUE TO MONITOR AND REASSESS.
--- NOTE | 2020-04-02 06:20 | NUR ---
CLOSING NOTES: PATIENT IS AWAKE AND ALERT x4 LAYING DOWN IN BED. PATIENT IS TOLERATING ROOM AIR WITH NO SIGNS OF DISTRESS OR SHORTNESS OF BREATH NOTED. IV SITES ARE PATENT WITH NO SIGNS OF INFILTRATION NOTED. COMMODE AND URINAL AT BEDSIDE FOR PATIENT USE. PATIENT IN STABLE CONDITION. SAFETY, FALL, AND ASPIRATION PRECAUTIONS REMAINED IN PLACE THROUGHOUT THE SHIFT. PATIENT MEDICATED FOR PAIN THROUGHOUT SHIFT.BED LOCKED IN LOWEST POSITION WITH CALL LIGHT IN REACH. WILL ENDORSE PATIENT CARE TO ONCOMING DAY SHIFT NURSE.
--- NOTE | 2020-04-02 07:15 | NUR ---
VOMITED: PATIENT VOMITED ALL OVER THE FLOOR. T[employer]GR[employer] MANAGEMENT PROFESSOR NURSE USAMA GAVE ZOFRAN. PATIENT GIVEN NEW GOWN AND SOCKS. EMESIS PICKED UP OFF THE FLOOR. PATIENT IN STABLE CONDITION. WILL CONTINUE TO MONITOR PATIENT.
[2020-04-02] MEDS: ONDANSETRON HCL 4 MG/2 ML VIAL IVP PRN (07:16)
--- NOTE | 2020-04-02 07:20 | NUR ---
OPENING NOTES: RECEIVED PATIENT FROM IMPROVEMENT SPEC NURSE. PATIENT IS AWAKE AND ALERT x4 LAYING DOWN IN BED. PATIENT IS TOLERATING OXYGEN ON 2 L NASAL CANNULA WITH NO SIGNS OF DISTRESS OR SHORTNESS OF BREATH NOTED. IV SITES ARE PATENT WITH NO SIGNS OF INFILTRATION NOTED. COMMODE AND URINAL AT BEDSIDE FOR PATIENT USE. PATIENT IN STABLE CONDITION. SAFETY, FALL, AND ASPIRATION PRECAUTIONS ARE IN PLACE. BED LOCKED IN LOWEST POSITION WITH CALL LIGHT IN REACH. WILL CONTINUE TO MONITOR PATIENT FOR ANY CHANGES.
[2020-04-02 08:46] VITALS: BP_SYST 153
[2020-04-02] MEDS: tiZANidine HCL 4 MG TABLET PO SCH ×2 (08:48→14:04)
[2020-04-02] MEDS: Effexor 37.5 MG TAB PO SCH ×2 (08:48→14:04)
[2020-04-02] MEDS: LINEZOLID 300 ML IV SCH (08:48)
[2020-04-02] MEDS: ASPIRIN 325 MG TABLET PO SCH (08:48)
[2020-04-02] MEDS: POLYETHYLENE GLYCOL 3350, 17 GM/ POWD.PACK PO SCH (08:49)
[2020-04-02] MEDS: GEMFIBROZIL 600 MG TABLET (LOPID) PO SCH (08:49)
--- NOTE | 2020-04-02 10:15 | NUR ---
RN ROUNDS: PATIENT IS AWAKE AND ALERT x4 SITTING UP IN BED. PATIENT IS TOLERATING OXYGEN ON ROOM AIR WITH NO SIGNS OF DISTRESS OR SHORTNESS OF BREATH NOTED. IV SITES ARE PATENT. PATIENT IN STABLE CONDITION. WILL CONTINUE TO MONITOR PATIENT FOR ANY CHANGES.
--- NOTE | 2020-04-02 10:25 | NUR ---
P.T. NOTES PATIENT REFUSED TO BE SEEN BY P.T. TODAY, STATES NOT FEELING WELL SINCE LAST NIGHT ALSO VOMITED THIS MORNING PRIOR TO THERAPIST ROOM ENTRY, MADE RN AWARE.
[2020-04-02 12:13] VITALS: BP_SYST 167
--- NOTE | 2020-04-02 12:54 | NUR ---
RN ROUNDS: PATIENT IS AWAKE AND ALERT x4 SITTING UP IN BED. PATIENT IS TOLERATING OXYGEN ON ROOM AIR WITH NO SIGNS OF DISTRESS OR SHORTNESS OF BREATH NOTED. IV SITES ARE PATENT WITH NO SIGNS OF INFILTRATION NOTED. PATIENT IN STABLE CONDITION. WILL CONTINUE TO MONITOR PATIENT FOR ANY CHANGES.
--- NOTE | 2020-04-02 14:05 | NUR ---
RN ROUNDS: PATIENT IS AWAKE AND ALERT x4 SITTING DOWN IN BED. PATIENT IS TOLERATING OXYGEN ON ROOM AIR WITH NO SIGNS OF DISTRESS OR SHORTNESS OF BREATH NOTED. IV SITES ARE PATENT WITH NO SIGNS OF INFILTRATION NOTED. PATIENT IS STATING HE IS IN PAIN. INFORMED HIM THAT ONCE PAIN MEDICATION IS AVAILABLE I WILL BRING IT. PATIENT VERBALIZED UNDERSTANDING. URINAL AND BEDSIDE COMMODE EMPTIED. PATIENT GIVEN MILK PER REQUEST. PATIENT IN STABLE CONDITION. WILL CONTINUE TO MONITOR PATIENT FOR ANY CHANGES.
--- NOTE | 2020-04-02 15:20 | NUR ---
FAMILY CALLED: PATIENT'S DAUGHTER JULIAN CALLED. RECEIVED PERMISSION FROM PATIENT TO GIVE OUT INFORMATION SINCE SHE WAS NOT A CONTACT IN HIS CHART. INFORMED JULIAN ON HOW THE PATIENT IS DOING. ANSWERED ANY QUESTIONS TO THE BEST OF MY ABILITY. INFORMED HER THAT WE WILL KEEP HER UPDATED. HER PHONE NUMBER HAS BEEN PUT INTO THE CHART.
[2020-04-02 16:12] VITALS: BP_SYST 159
--- NOTE | 2020-04-02 16:45 | NUR ---
RN ROUNDS: PATIENT IS ASLEEP LAYING DOWN IN BED. PATIENT IS TOLERATING OXYGEN ON ROOM AIR WITH NO SIGNS OF DISTRESS OR SHORTNESS OF BREATH NOTED. IV SITES ARE PATENT WITH NO SIGNS OF INFILTRATION NOTED. PATIENT IN STABLE CONDITION. WILL CONTINUE TO MONITOR PATIENT FOR ANY CHANGES.
--- NOTE | 2020-04-02 18:57 | NUR ---
CLOSING NOTES: PATIENT IS AWAKE AND ALERT x4 LAYING DOWN IN BED. PATIENT IS TOLERATING OXYGEN ON ROOM AIR WITH NO SIGNS OF DISTRESS OR SHORTNESS OF BREATH NOTED. IV SITES ARE PATENT WITH NO SIGNS OF INFILTRATION NOTED. COMMODE AND URINAL AT BEDSIDE FOR PATIENT USE. PATIENT IS READY FOR DISCHARGE. PATIENT IN STABLE CONDITION. SAFETY, FALL, AND ASPIRATION PRECAUTIONS REMAINED IN PLACE THROUGHOUT THE SHIFT. BED LOCKED IN LOWEST POSITION WITH CALL LIGHT IN REACH. WILL ENDORSE PATIENT CARE TO ONCOMING LATHE HAND NURSE.
--- NOTE | 2020-04-02 20:00 | NUR ---
D/C Patient Patient given medication reconciliation form and D/C instructions. Exit Care provided. Patient verbalized understanding. MD discussed with patient the results and treatment provided. Ambulatory with steady gait for discharge to home. Patient in stable condition, ID band removed. IV catheter left in place for antibiotic treatmen , intact and dressing applied, no active bleeding. Rx of Percocet given. Patient educated on pain management. All belongings sent with patient.
== END 2020-04-02 20:00 | DRG 853 ==
LOC: SED 16:30 → STU 19:21 → SIC 03-26 15:33 → STU 03-29 17:37 → SMU 04-02 16:13
PROVIDERS: ADMIT Internal Medicine Hospice and Palliative Medicine; ATTEND Internal Medicine Hospice and Palliative Medicine
PROC: 0W9B30Z Drainage of Left Pleural Cavity with Drainage Device, Percutaneous Approach (ICD-10-PCS; principal; 2020-03-19 16:05)
PROC: 0BBP0ZZ Excision of Left Pleura, Open Approach (ICD-10-PCS; 2020-03-26)
PROC: 0BNJ0ZZ Release Left Lower Lung Lobe, Open Approach (ICD-10-PCS; 2020-03-26)
PROC: 0BJ08ZZ Inspection of Tracheobronchial Tree, Via Natural or Artificial Opening Endoscopic (ICD-10-PCS; 2020-03-26)
PROC: 0W9B40Z Drainage of Left Pleural Cavity with Drainage Device, Percutaneous Endoscopic Approach (ICD-10-PCS; 2020-03-26)
PROC: 0BBJ0ZZ Excision of Left Lower Lung Lobe, Open Approach (ICD-10-PCS; 2020-03-26)
PROC: 0B978ZZ Drainage of Left Main Bronchus, Via Natural or Artificial Opening Endoscopic (ICD-10-PCS; 2020-03-26)
PROC: 03HY33Z Insertion of Infusion Device into Upper Artery, Percutaneous Approach (ICD-10-PCS; 2020-03-26)
PROC: 30233N1 Transfusion of Nonautologous Red Blood Cells into Peripheral Vein, Percutaneous Approach (ICD-10-PCS; 2020-03-27)
DX: A41.9 Sepsis, unspecified organism (principal); J86.9 Pyothorax without fistula; E43 Unspecified severe protein-calorie malnutrition; J15.9 Unspecified bacterial pneumonia; J96.20 Acute and chronic respiratory failure, unspecified whether with hypoxia or hypercapnia; J44.0 Chronic obstructive pulmonary disease with (acute) lower respiratory infection; E87.3 Alkalosis; J44.1 Chronic obstructive pulmonary disease with (acute) exacerbation; J91.8 Pleural effusion in other conditions classified elsewhere; J94.2 Hemothorax; D64.9 Anemia, unspecified; E78.5 Hyperlipidemia, unspecified; E87.6 Hypokalemia; D47.3 Essential (hemorrhagic) thrombocythemia; F17.200 Nicotine dependence, unspecified, uncomplicated; F32.9 Major depressive disorder, single episode, unspecified; G89.4 Chronic pain syndrome; I10 Essential (primary) hypertension; Z20.828 Contact with and (suspected) exposure to other viral communicable diseases; K76.9 Liver disease, unspecified; Z68.26 Body mass index [BMI] 26.0-26.9, adult; B91 Sequelae of poliomyelitis
CPT/HCPCS: 36415; 36600; 71045; 71250-TC; 71275; 76700-TC; 76942-TC; 80048; 80053; 81003; 82272; 82803-TC; 82962; 83605; 83735-TC; 84100-TC; 85007; 85025; 85027; 85379; 85610-TC; 85651-TC; 85730-TC; 86480; 86635; 86738; 86870; 86886; 86900; 86901; 86920; 87040-TC; 87070; 87070-TC; 87075-TC; 87081; 87101; 88305; 88307; 88341; 88342; 88361; 93005; 93970; 94640; 94760; 96365; 96366; 96367; 96368; 97110-GP; 97116-GP; 97163; 97530-GP; 99291; C1750; C9399; G0378; J0330; J0456; J0696; J1100; J1170; J1650; J1885; J1940; J1956; J2001; J2020; J2250; J2270; J2405; J2543; J2704; J2997; J3010; J3370; J3480; J3490; J7030; J7040; J7050; J7060; J7120; J7613; P9021; Q9967; U0003

== ENCOUNTER 2020-04-24 07:59 | Inpatient (IN) | payer OTHER, SELFPAY ==
[~2020-04-24] VITALS: Ht 175.3 cm; Wt 71.8 kg
[~2020-04-24 07:59] MED LIST: LOP600 PO; TIZA4TAB11 PO; VENL37.55 PO
--- NOTE | 2020-04-24 08:00 | NUR ---
Placed in room 4 . Placed on cardiac exercise specialist, blood pressure machine and pulse oximeter. To gown for exam. Side rails up.
--- NOTE | 2020-04-24 08:05 | NUR ---
Pt bib EMS from home with c/o abdominal pain 02/07, n/v for the last 8 hours. Reports h/o recent surgery of "scraping an infection out of his lungs" Pt in mild distress, BP elevated. Other v/s stable, pt is afebrile. Currently resting in bed, will continue to monitor.
[2020-04-24 08:08] VITALS: BP_SYST 184
--- NOTE | 2020-04-24 08:10 | NUR ---
ER Dr. Pappas at bedside examining patient.
[2020-04-24] MEDS ORDERED: MORPHINE 4 MG/ML INJ. SYRINGE IVP ONE (08:15)
[2020-04-24] MEDS ORDERED: NACL 0.9% 1,000 ML IV ONE (08:15)
[2020-04-24] MEDS ORDERED: ONDANSETRON HCL 4 MG/2 ML VIAL IVP ONE ×2 (08:15→22:00)
--- NOTE | 2020-04-24 08:20 | NUR ---
# 20 gauge angiocath placed to RFA. Use of asceptic technique. Opsite placed over site. Blood return noted. Blood for lab drawn from site. Flushed with 10 cc of normal saline. No evidence of infiltration noted. Patient tolerated well.
[2020-04-24 08:40] LABS: BASOPHILS # (AUTO) 0.1 K/uL (0.0-0.2); BASOPHILS % (AUTO) 0.6 % (0.0-2.0); EOSINOPHILS # (AUTO) 0.1 K/uL (0.0-0.4); EOSINOPHILS % (AUTO) 0.6 % (0.0-4.0); HEMATOCRIT 38.1 % (36-54); HEMOGLOBIN 12.9 g/dL (14.0-18.0); LYMPHOCYTES # (AUTO) 1.6 K/uL (1.0-5.5); LYMPHOCYTES % (AUTO) 12.7 % (20.5-51.5); MEAN CORPUSCULAR HEMOGLOBIN 32 pg (27-31); MEAN CORPUSCULAR HGB CONC 34 % (32-36); MEAN CORPUSCULAR VOLUME 93 fL (79.0-98.0); MONOCYTES # (AUTO) 0.3 K/uL (0.0-1.0); MONOCYTES % (AUTO) 2.1 % (1.7-9.3); NEUTROPHILS # (AUTO) 10.9 K/uL (1.8-7.7); PLATELET COUNT (AUTO) 551 K/uL (130-430); RED BLOOD CELL COUNT(AUTO) 4.09 MIL/uL (4.2-6.2); RED CELL DISTRIBUTION WIDTH 15.4 % (9.0-15.0)
[2020-04-24 08:44] LABS: CALCIUM 9.5 mg/dL (8.4-11.0); CREATININE 0.76 mg/dL (0.55-1.30); POTASSIUM 3.4 mmol/L (3.5-5.1)
--- NOTE | 2020-04-24 08:44 | NUR ---
Patient transported to radiology via wheelchair, accompanied by staff.
[2020-04-24 08:56] LABS: ALBUMIN 4.1 g/dL (3.4-4.8); TOTAL BILIRUBIN 0.2 mg/dL (0.0-1.0)
--- NOTE | 2020-04-24 09:07 | NUR ---
# 16 FR Greenberg catheter with use of sterile technique. Immediate return of 1100 cc yellow urine noted. Bedside drainage bag placed below level of bladder. Urine sample collected and sent to lab. Pt tolerated procedure well.
[2020-04-24 09:21] LABS: BILIRUBIN,URINE NEGATIVE (NEGATIVE); BLOOD, URINE NEGATIVE (NEGATIVE); CLARITY/URINE CLEAR (CLEAR); COLOR,URINE YELLOW (YELLOW); GLUCOSE,URINE NEGATIVE (NEGATIVE); KETONES,URINE NEGATIVE (NEGATIVE); LEUKOCYTE ESTERASE ,URINE NEGATIVE (NEGATIVE); NITRITE, URINE NEGATIVE (NEGATIVE); PROTEIN URINE NEGATIVE (NEGATIVE); UROBILINOGEN,URINE 0.2 (0.2-1.0)
[2020-04-24] MEDS ORDERED: fentaNYL CITRATE/PF 100 MCG/2 ML AMP IVP ONE (10:45)
--- NOTE | 2020-04-24 10:57 | NUR ---
Med rec and belongings list completed
--- NOTE | 2020-04-24 11:09 | NUR ---
Admit orders received from Dr. Galicia, pt to go to med-surg. TT charge nurse Henok, she will call me back with bed assignment because she doesn't have a nurse for the patient.
--- NOTE | 2020-04-24 11:37 | NUR ---
Nasal swab obtained to R/O MRSA, sample sent to lab, pt tolerated well.
--- NOTE | 2020-04-24 12:18 | NUR ---
Cora, [facility] manager packaging and Vandana, house mover are stating not to transport patient to [facility] at this time until Dr. Galicia is notified. They state Dr. Galicia told them not to accept the patient until pneumothorax is corrected. I explained that the stogy maker left and was not able to insert the chest tube. Vandana states she wants confirmation from Dr. Galicia. Calling Dr. Galicia to confirm, since he has already given orders to admit.
--- NOTE | 2020-04-24 12:34 | NUR ---
Dr. Galicia called back and said it was ok to push the patient to the floor.
--- NOTE | 2020-04-24 12:41 | NUR ---
Patient will be admitted to care of Dr. Galicia. Admitted to med-surg unit. Will go to room 101A. Belongings list completed. Complete and up to date summary report printed. SBAR report to be given at bedside with opportunity for questions. IV site intact and patent
[2020-04-24] MEDS ORDERED: IPRATROPIUM BROM 0.5 MG/2.5 ML VIAL.NEB (ATROVENT) INH PRN (12:45)
[2020-04-24] MEDS ORDERED: ALBUTEROL SULFATE 0.083% 2.5 MG/3 ML VIAL.NEB INH PRN (12:45)
[2020-04-24] MEDS ORDERED: cloNIDine HCL 0.1 MG TABLET PO ONE (12:45)
[2020-04-24] MEDS ORDERED: cloNIDine HCL 0.1 MG TABLET ONE (12:46)
--- NOTE | 2020-04-24 12:52 | NUR ---
CONSULTATION CALLED REASON FOR CONSULTATION:PNEUMOTHORAX WAS CONSULT CALLED?Y PERSON WHO WAS NOTIFIED:YUN CONSULTING PHYSICIAN:SHRUTI DIETRICH WIRE STRAIGHTENING MACHINE OPERATOR SPECIALTY:THORACIC SURGEON WIRE STRAIGHTENING MACHINE OPERATOR PHONE NUMBER:[phone] REQUESTING PHYSICIAN:MERLIEN CARD
--- NOTE | 2020-04-24 12:55 | NUR ---
ADMISSION NOTE: Received patient from ER via gurney. Patient admitted with diagnosis of Abdominal pain. Patient is awake, alert, oriented X 4. Patient oriented to hospital room, call light, toileting, pain management and safety-teach back done. Patient informed that Tamela will be his nurse and that their room number is 101A. Personal belongings checked and Belongings List documented. Call light within reach.
--- NOTE | 2020-04-24 13:00 | NUR ---
INITIAL NOTE: RECEIVED PATIENT FROM ER. RECEIVED REPORT FROM CARLO MELGOZA. PATIENT IS AWAKE AND ALERT x4. PATIENT AMBULATED FROM GURNEY TO BED WITH STEADY GAIT. PATIENT IS TOLERATING OXYGEN ON ROOM AIR WITH NO SIGNS OF DISTRESS OR SHORTNESS OF BREATH NOTED. PATIENT IS COMPLAINING OF ABDOMINAL PAIN. WILL CALL MD FOR PAIN MEDICATION ORDERS. PATIENT'S BP IS ELEVATED. ER GAVE HIM CLONIDINE BEFORE COMING TO THE FLOOR. WILL RECHECK BLOOD PRESSURE LATER. BELONGINGS CHECKED. PATIENT IN STABLE CONDITION. SAFETY, FALL AND ASPIRATION PRECAUTIONS ARE IN PLACE. BED LOCKED IN LOWEST POSITION WITH CALL LIGHT IN REACH. WILL CONTINUE TO MONITOR PATIENT FOR ANY CHANGES.
--- NOTE | 2020-04-24 13:02 | NUR ---
CONSULTATION CALLED REASON FOR CONSULTATION:ABDOMINAL PAIN WAS CONSULT CALLED?Y PERSON WHO WAS NOTIFIED:SALIMA CONSULTING PHYSICIAN:MARCO A [facility] CONTACT CENTER ASSISTANT SPECIALTY:GI CONTACT CENTER ASSISTANT PHONE NUMBER:[phone] REQUESTING PHYSICIAN:MERLINE CARD
[2020-04-24 13:07] VITALS: BP_SYST 186
--- NOTE | 2020-04-24 13:07 | NUR ---
CONSULTATION CALLED REASON FOR CONSULTATION:ABDOMINAL PAIN WAS CONSULT CALLED?Y PERSON WHO WAS NOTIFIED:GIANLUCA CONSULTING PHYSICIAN:KARI NOLASCO ADMINISTRATIVE NURSING SUPERVISOR SPECIALTY:SURGEON ADMINISTRATIVE NURSING SUPERVISOR PHONE NUMBER:[phone] REQUESTING PHYSICIAN:MERLINE CARD
--- NOTE | 2020-04-24 13:10 | NUR ---
CALLED: DR. WALKER CALLED AND STATED HE TALKED TO DR. GONZÁLES. MD WILL NOT BE COMING TO SEE THE PATIENT DUE TO PATIENT BEING STABLE AND NOT SHOWING SYMPTOMS FROM THE PNEUMOTHORAX. STATED DR. GONZÁLES WILL CALL HIM IF ANYTHING CHANGES.
--- NOTE | 2020-04-24 13:11 | NUR ---
CONSULTATION CALLED REASON FOR CONSULTATION:URINARY RETENSION WAS CONSULT CALLED?Y PERSON WHO WAS NOTIFIED:APPLE CONSULTING PHYSICIAN:KAIL ANDERSON STUDIO MODEL SPECIALTY:UROLOGY STUDIO MODEL PHONE NUMBER:[phone] REQUESTING PHYSICIAN:MERLINE CARD
[2020-04-24 13:12] VITALS: BP_SYST 176
--- NOTE | 2020-04-24 14:05 | NUR ---
HIGH ALERT NOTE: Called Dr. DYSON back at [phone] identified within the medical roster to verify physician authenticity.
--- NOTE | 2020-04-24 14:08 | NUR ---
RN ROUNDS: PATIENT IS AWAKE X4 SITTING UP IN BED. PATIENT COMPLAINS OF ABDOMINAL PAIN 10/10. PRN PAIN MEDICATION TO BE GIVEN. IV SITE IS PATENT AND NO SIGNS OF INFILTRATION. PATIENT IS TOLERATING OXYGEN ON ROOM AIR. PATIENT IN STABLE CONDITION. WILL CONTINUE TO MONITOR PATIENT FOR ANY CHANGES.
[2020-04-24] MEDS ORDERED: MORPHINE 2 MG/ML INJ. SYRINGE IVP PRN (14:15)
[2020-04-24] MEDS: MORPHINE 4 MG/ML INJ. SYRINGE IVP PRN ×2 (14:18→18:49)
[2020-04-24] MEDS: tiZANidine HCL 4 MG TABLET PO SCH ×2 (14:50→20:30)
[2020-04-24] MEDS: IPRATROPIUM BROM 0.5 MG/2.5 ML VIAL.NEB (ATROVENT) INH SCH ×2 (15:19→19:50)
[2020-04-24] MEDS: ALBUTEROL SULFATE 0.083% 2.5 MG/3 ML VIAL.NEB INH SCH ×2 (15:19→19:50)
[2020-04-24 16:05] VITALS: BP_SYST 167
--- NOTE | 2020-04-24 16:44 | NUR ---
PAGEHeena MONTAÑO: PAGEHeena DYSON FOR MEDICATION FOR HIGH BLOOD PRESSURE. AWAITING CALL BACK.
--- NOTE | 2020-04-24 16:45 | NUR ---
RN ROUNDS: PATIENT IS AWAKE AND ALERT x4 SITTING UP IN BED. PATIENT IS TOLERATING OXYGEN ON ROOM AIR WITH NO SIGNS OF DISTRESS OR SHORTNESS OF BREATH NOTED. PATIENT STATES HE IS IN EXCRUCIATING PAIN IN HIS HEAD AND ABDOMEN. BLOOD PRESSURE IS ELEVATED. PAGED. IV SITE IS PATENT WITH NO SIGNS OF DISTRESS OR SHORTNESS OF BREATH NOTED. WILL CONTINUE TO MONITOR PATIENT FOR ANY CHANGES.
--- NOTE | 2020-04-24 16:52 | NUR ---
FAYE DYSON SPOKE TO SPOKE TO SARAH
--- NOTE | 2020-04-24 17:04 | NUR ---
MD FAYE YANG CALLED AT SPOKE WITH DR.KANGARLU KNIGHT SONIA UROLOGY TEACHER.
--- NOTE | 2020-04-24 17:43 | NUR ---
2ND PAGE OUT TO MD YANG CALLED AT [phone]KANGARLU MAE SOPHIA FITNESS TECHNICIAN.
--- NOTE | 2020-04-24 17:48 | NUR ---
CALLED: SPOKE WITH DR. WILLIAMSON. INFORMED HER OF PATIENT'S STATUS AND HIGH BLOOD PRESSURE. RECEIVED AN ORDER FOR PRN HYDRALAZINE FOR SBP GREATER THAN 160. WILL FOLLOW THROUGH WITH ORDER.
[2020-04-24] MEDS: hydrALAZINE HCL 20 MG/ML VIAL IVP PRN (18:19)
--- NOTE | 2020-04-24 18:19 | NUR ---
JASON HYDRALAZINE: HYDRALAZINE GIVEN FOR BP OF 167/107. PATIENT TOLERATED IT WELL. WILL REASSESS PATIENT. Addendum: 04/24/20 at 1852 by Chula Miner RN 1850: RECHECKED BLOOD PRESSURE AND BP IS 157/93.
--- NOTE | 2020-04-24 18:52 | NUR ---
CLOSING NOTES: PATIENT IS AWAKE AND ALERT x4 LAYING DOWN IN BED. PATIENT IS COMPLAINING OF PAIN 10/10. PRN MORPHINE GIVEN TO PATIENT. WILL ENDORSE REASSESSMENT TO ONCOMING ENGINEERED WOOD DESIGNER NURSE. IV SITE IS PATENT. PATIENT IS TOLERATING OXYGEN ON ROOM AIR WITH NO SIGNS OF DISTRESS OR SHORTNESS OF BREATH NOTED. AUGUSTE CATHETER INTACT AND DRAINING BY GRAVITY. PATIENT IN STABLE CONDITION. SAFETY, FALL AND ASPIRATION PRECAUTIONS REMAINED IN PLACE THROUGHOUT THE SHIFT. WILL ENDORSE PATIENT CARE TO ONCOMING ENGINEERED WOOD DESIGNER NURSE.
[2020-04-24 19:00] VITALS: BP_SYST 158
--- NOTE | 2020-04-24 19:15 | NUR ---
change of shift.pt.presents quiescent affect;calm,resting viewing tv programming.pt.presents rossi cath intact;patent urine content present.pt.presents iv access location:rt.forearm.intact.patent.iv lock status.pt.capable to reposition self.general \ status stable.respiratory status stable;unlabored@room air.call light/telephone w/in access of the pt.
[2020-04-24 20:00] VITALS: BP_SYST 158
--- NOTE | 2020-04-24 20:00 | NUR ---
pt.assessed.v/s assessed values w/in normal limits.pt.stated he presents headache.pt.had recieved the administration morphine;4mg@1830p.i reviewed the [facility] med-list.the subsequent pain medication is due@2230p.i have apprised the pt. i have apprised the pt.that snacks/beverages are available w/in the shift.no requests posited@this hour.iv access intact; patent iv lock.rossi cath intact;patent urine content present.general status stable.respiratory status stable;unlabored@ room air.call light/telephone w/in access of the pt.
[2020-04-24] MEDS: GEMFIBROZIL 600 MG TABLET (LOPID) PO SCH (20:30)
--- NOTE | 2020-04-24 21:00 | NUR ---
2100pmedications administered.pt.capable to ingest the po medication w/out difficulty.no requests posited@this hour.
[2020-04-24] MEDS ORDERED: HYDROcodone/ACETAMIN 5-325 MG TAB (NORCO/ VICODIN) PO ONE (22:00)
[2020-04-24] MEDS ORDERED: NALOXONE HCL 0.4 MG/ML AMP (NARCAN) IVP PRN (22:00)
--- NOTE | 2020-04-24 22:00 | NUR ---
5HIGH ALERT NOTE: Called Dr. duran back at ;cell phone.identified within the medical roster to verify physician authenticity. order norco;5/325mg po x1.pt.presented headache;requested medication;pain.
--- NOTE | 2020-04-24 22:00 | NUR ---
pt.assessed.pt.presented head ache requested medication;pain. paged. returned the page.i apprised of the pt.'s status/requests. ordered norco:5/325mg po x1.i have administered the pain medication. to assess the efficacy of the pain medication per pain mgx protocol.no additional requests posited@this hour.rossi cath intact;patent urine content present.pt.caapable to reposition self.call light/telephone w/in access of the pt.
--- NOTE | 2020-04-25 | NUR ---
pt.assessed.v/s assessed values w/in normal limits.pt.requested snacks provided per maría;intervention specialist.pt.requested ice packs.i have provided the ice packs.rossi cath intact;patent urine content present.general status stable.respiratory status stable unlabored.pt.capable to reposition self.call light/telephone w/in access of the pt.
[2020-04-25] MEDS: MORPHINE 4 MG/ML INJ. SYRINGE IVP PRN ×4 (01:28→21:59)
[2020-04-25 01:29] VITALS: BP_SYST 153
--- NOTE | 2020-04-25 01:30 | NUR ---
pt.assessed.pt.requested medication;pain.i have administered.morphine;4mg ivp.to assess the pain medication efficacy per pain medication protocol.no additional requests posited@this hour.
--- NOTE | 2020-04-25 02:00 | NUR ---
pt.assessed.pt.presents quiescent affect;calm,somnolent.per flacc pain mgx pt.absent facial grimaces/body posturing.rossi cath intact;patent urine content present.pt.capable to reposition self.general status stable.respiratory status stable;unlabored.call light/telephone w/in access of the pt.
--- NOTE | 2020-04-25 04:00 | NUR ---
pt.assessed.pt.presents quiescent affect;calm,somnolent.per flacc pain mgx pt.absent facial grimaces/body posturing. pt.capable to reposition self.general status stable.respiratory status stable;unlabored.call light/telephone placed w/in access of the pt.
[2020-04-25] MEDS: IPRATROPIUM BROM 0.5 MG/2.5 ML VIAL.NEB (ATROVENT) INH SCH ×5 (07:00→23:00)
[2020-04-25] MEDS: ALBUTEROL SULFATE 0.083% 2.5 MG/3 ML VIAL.NEB INH SCH ×5 (07:00→23:00)
[2020-04-25 08:15] VITALS: BP_SYST 164
[2020-04-25] MEDS: hydrALAZINE HCL 20 MG/ML VIAL IVP PRN (08:32)
[2020-04-25] MEDS: tiZANidine HCL 4 MG TABLET PO SCH ×3 (08:33→21:56)
[2020-04-25] MEDS: Effexor XR 37.5 MG PO SCH (08:34)
[2020-04-25] MEDS: TAMSULOSIN HCL 0.4 MG CAP PO SCH (09:00)
[2020-04-25] MEDS ORDERED: ONDANSETRON HCL 4 MG/2 ML VIAL IM PRN (09:15)
[2020-04-25] MEDS ORDERED: METOCLOPRAMIDE HCL 10 MG/2 ML VIAL IVP PRN (09:15)
[2020-04-25] MEDS ORDERED: POLYETHYLENE GLYCOL 3350, 17 GM/ POWD.PACK PO ONE (09:30)
--- NOTE | 2020-04-25 09:56 | NUR ---
CONSULTATION PAGED/CALLED Reason for Consultation: [] PAIN PUMP IS NOT WORKING Person Who was Notified: [] OFFICE IS CLOSED DUE TO Consulting Physician: [] DR ISELA LUNDBERG Blow Mold Machine Operator Specialty: [] PAIN MGMT MD Ordering Physician: [] DR DOUGLAS WILL TRY AND TRY TO REACH DR WEISS. OFFICE PHONE WAS NOT FORWARDED TO AN EXCHANGE.
[2020-04-25 10:02] LABS: BASOPHILS % (AUTO) 0.3 % (0.0-2.0); EOSINOPHILS % (AUTO) 0.2 % (0.0-4.0); HEMATOCRIT 41.7 % (36-54); HEMOGLOBIN 14.2 g/dL (14.0-18.0); LYMPHOCYTES # (AUTO) 2.1 K/uL (1.0-5.5); LYMPHOCYTES % (AUTO) 14.7 % (20.5-51.5); MEAN CORPUSCULAR HEMOGLOBIN 31 pg (27-31); MEAN CORPUSCULAR HGB CONC 34 % (32-36); MEAN CORPUSCULAR VOLUME 92 fL (79.0-98.0); MONOCYTES # (AUTO) 0.9 K/uL (0.0-1.0); MONOCYTES % (AUTO) 6.1 % (1.7-9.3); NEUTROPHILS # (AUTO) 11.1 K/uL (1.8-7.7); NEUTROPHILS % (AUTO) 78.7 % (40.0-70.0); PLATELET COUNT (AUTO) 625 K/uL (130-430); RED BLOOD CELL COUNT(AUTO) 4.54 MIL/uL (4.2-6.2); RED CELL DISTRIBUTION WIDTH 15.5 % (9.0-15.0)
[2020-04-25 10:15] LABS: CALCIUM 9.4 mg/dL (8.4-11.0); CREATININE 0.66 mg/dL (0.55-1.30); POTASSIUM 3.4 mmol/L (3.5-5.1); TOTAL BILIRUBIN 0.3 mg/dL (0.0-1.0)
[2020-04-25 11:34] VITALS: BP_SYST 155
[2020-04-25] MEDS: LEVOFLOXACIN 500 MG/D5W 100 ML IV SCH (12:31)
[2020-04-25] MEDS: GEMFIBROZIL 600 MG TABLET (LOPID) PO SCH ×2 (13:28→21:56)
[2020-04-25] MEDS: metroNIDAZOLE 500 mg/NS 100 ML IV SCH ×2 (14:58→21:57)
[2020-04-25 15:31] VITALS: BP_SYST 164
[2020-04-25 19:00] VITALS: BP_SYST 152; BP_SYST 162
[2020-04-25] MEDS ORDERED: LORazepam 2 MG/ML VIAL IVP ONE (19:00)
--- NOTE | 2020-04-25 19:15 | NUR ---
change of shift.pt.is not present location;[facility]-med:dept;hida scan.pt..presents abdomen pain. ordered hida scan.
--- NOTE | 2020-04-25 19:15 | NUR ---
NO adverse events during shift. Pt given ice packs throughout shift for PEÑA as pt could not have any food or anything to drink and could not have any narcotics for 8 hours before HIDA scan. HIDA scan ([facility]) Tech here to cherry picker operator pt for HIDA Scan. Ativan 1 mg given IVP for Anxiety per MD orders. Pt safety maintained during shift. SBAR report given to CARLO Cm for continuity of care.
--- NOTE | 2020-04-25 19:30 | NUR ---
pt.return to the room.pt.has stated he is hungery.i have apprised the pt.that i am to page the w results:hida scan. if will order change in diet status.pt.assisted to bed pt. repositioned.pt.presents loc:confused ie:pt.inquired if he is to return to [facility];pt.oriented to place.pt.presents iv access intact;patent.iv lock.pt.presents rossi cath.intact;patent.no c/o pain,nausea.general status stable.respiratory status stable;unlabored@room air.call light/telephone placed w/in access of the pt.
[2020-04-25 20:00] VITALS: BP_SYST 152
--- NOTE | 2020-04-25 20:00 | NUR ---
pt.assessed.v/s assessed values w/in normal limits.b/p status elevated.pt.requested food.i re-iterated to the pt.that the diet status to continued npo.i am awaiting the hida-scan results for possibole change to diet status contingent upon hida scan results.pt.presents loc;confused.pt.oriented to place.general status stable.respiratory status stable;unlabored.call light/ telephone placed w/in access of the pt.
--- NOTE | 2020-04-25 20:33 | NUR ---
PAGED PAGED DOCTOR KARI ZAMAN DOCTOR JENNY HILLIARD IS GRAB HOOKER
--- NOTE | 2020-04-25 20:38 | NUR ---
PAGED PAGED DOCTOR RADHA
--- NOTE | 2020-04-25 21:00 | NUR ---
2100pmedications administered.flagyl;abx,ivpb administered.pt.capable to ingest po medication w/out difficulty.
--- NOTE | 2020-04-25 21:06 | NUR ---
2ND PAGE PAGING DOCTOR RADHA
--- NOTE | 2020-04-25 22:00 | NUR ---
i procured the hida scan results.;a ordering md.was paged:not available. on-call paged but indisposed:surgery. ;gi was paged. returned the page.i apprised of the results;hida scan.negative study. order resume previous diet;regular.diet status changed:regular.pt.provided snacks/beverages.pt.requested medication pain. i administered morphine:4mg ivp.to assess the medication efficacy per pain mgx protocol.i have attended to the rossi cath. measured/emptied.general status stable.respiratory status stable;unlabored.pt.capable to reposition self.call light/telephone placed w/in access of the pt.
--- NOTE | 2020-04-26 | NUR ---
pt.assessed.v/s assessed values note b/p status elevated.iv access intact;patent iv fluids ns-flush infusing.rossi cath intact; patent urine content present.per flacc pain mgx pt.absent facial grimaces/body posturing.pt.capable to reposition self.call light/telephone placed w/in access of the pt.
[2020-04-26 00:04] VITALS: BP_SYST 172
--- NOTE | 2020-04-26 02:00 | NUR ---
pt.assessed.pt.present quiescent affect;calm,somnolent.per flacc pain mgx pt.absent facial grimaces/body posturing. iv access intact;patent iv fluids ns-flush infusing.rossi cath intact;patent urine content present.general status stable. respiratory status stable;unlabored.pt.capable to reposition self.call light/telephone w/in access of the pt.
[2020-04-26] MEDS: IPRATROPIUM BROM 0.5 MG/2.5 ML VIAL.NEB (ATROVENT) INH SCH ×6 (03:00→23:00)
[2020-04-26] MEDS: ALBUTEROL SULFATE 0.083% 2.5 MG/3 ML VIAL.NEB INH SCH ×6 (03:00→23:00)
--- NOTE | 2020-04-26 04:00 | NUR ---
pt.assessed.pt.presents quiescent affect;calm,somnolent.per flacc pain mgx pt.absent facial grimaces/body posturing. rossi cath intact;patent urine content present.pt.capable to reposition self.call light/telephone w/in access of the pt.
[2020-04-26] MEDS: metroNIDAZOLE 500 mg/NS 100 ML IV SCH ×3 (05:13→22:02)
[2020-04-26] MEDS: hydrALAZINE HCL 20 MG/ML VIAL IVP PRN (05:14)
[2020-04-26 06:19] LABS: BASOPHILS # (AUTO) 0.1 K/uL (0.0-0.2); BASOPHILS % (AUTO) 0.4 % (0.0-2.0); EOSINOPHILS % (AUTO) 0.2 % (0.0-4.0); HEMATOCRIT 39.2 % (36-54); HEMOGLOBIN 13.5 g/dL (14.0-18.0); LYMPHOCYTES # (AUTO) 2.5 K/uL (1.0-5.5); LYMPHOCYTES % (AUTO) 18.6 % (20.5-51.5); MEAN CORPUSCULAR HEMOGLOBIN 31 pg (27-31); MEAN CORPUSCULAR HGB CONC 34 % (32-36); MEAN CORPUSCULAR VOLUME 92 fL (79.0-98.0); MONOCYTES % (AUTO) 7.1 % (1.7-9.3); NEUTROPHILS # (AUTO) 9.9 K/uL (1.8-7.7); NEUTROPHILS % (AUTO) 73.7 % (40.0-70.0); PLATELET COUNT (AUTO) 542 K/uL (130-430); RED BLOOD CELL COUNT(AUTO) 4.28 MIL/uL (4.2-6.2); RED CELL DISTRIBUTION WIDTH 15.4 % (9.0-15.0); WHITE BLOOD COUNT (AUTO) 13.4 K/uL (4.8-10.8)
--- NOTE | 2020-04-26 06:25 | NUR ---
pt.asesed.i jeimye admkenia vaapresoline;10ng ivp;2/t bp elevate status.,i havadmijnsterd f;lagytl;abx;ivpb 06-0-a dose/.no business operations director,pin,nause.apt requsate blankwer;wramed.i green eprovosrhe bnlamkety 0 pt.assessed.i have administered apresoline:10mg ivp:2/t b/p elevated status.i have administered flagyl;abx;ivpb 0600a dose. i have attended to the rossi cath.no c/o pain,nausea.pt.capable to re-position self.general status stable.respiratory status nstbe;unlabored.call [facility]/telephone placed w/in access of the pt.
[2020-04-26 06:57] LABS: ALBUMIN 3.9 g/dL (3.4-4.8); CREATININE 0.62 mg/dL (0.55-1.30); TOTAL BILIRUBIN 0.4 mg/dL (0.0-1.0)
--- NOTE | 2020-04-26 07:50 | NUR ---
INITIAL NOTE RECEIVED PT IN BED, NO S/S OF DISTRESS OR SOB NOTED, PT HAS NO C/O PAIN AT THIS TIME, PT IN STABLE CONDITION. PT AAOX4, VERBAL. IV CATHETER PATENT, NO SIGNS OF INFECTION OR INFILTRATION NOTED, SALINE LOCK. BED AT LOWEST POSITION, CALL LIGHT WITHIN REACH, WILL CONTINUE TO MONITOR PT FOR ANY CHANGES. FALL AND SAFETY PRECAUTIONS IN PLACE.
[2020-04-26] MEDS: MORPHINE 4 MG/ML INJ. SYRINGE IVP PRN ×3 (08:00→20:25)
[2020-04-26] MEDS: POLYETHYLENE GLYCOL 3350, 17 GM/ POWD.PACK PO SCH (08:37)
[2020-04-26] MEDS: tiZANidine HCL 4 MG TABLET PO SCH ×3 (08:37→20:24)
[2020-04-26] MEDS: GEMFIBROZIL 600 MG TABLET (LOPID) PO SCH ×2 (08:37→20:24)
[2020-04-26] MEDS: Effexor XR 37.5 MG PO SCH (08:37)
[2020-04-26] MEDS: TAMSULOSIN HCL 0.4 MG CAP PO SCH (08:52)
[2020-04-26 08:54] VITALS: BP_SYST 133
[2020-04-26] MEDS ORDERED: POTASSIUM CHLORIDE 40 MEQ in NS 250 ML IV ONE (09:45)
--- NOTE | 2020-04-26 10:33 | NUR ---
ROUNDS PT IN BED, NO S/S OF DISTRESS OR SOB NOTED, PT HAS NO C/O PAIN AT THIS TIME, PT IN STABLE CONDITION. PT RESTING COMFORTABLY, WILL CONTINUE TO MONITOR PT FOR ANY CHANGES.
[2020-04-26 11:25] VITALS: BP_SYST 139
[2020-04-26] MEDS: LEVOFLOXACIN 500 MG/D5W 100 ML IV SCH (13:22)
[2020-04-26 15:39] VITALS: BP_SYST 135
--- NOTE | 2020-04-26 18:09 | NUR ---
CLOSING NOTE PT IN BED, NO S/S OF DISTRESS OR SOB NOTED, PT HAS NO C/O PAIN AT THIS TIME, PT IN STABLE CONDITION. PT AAOX4, VERBAL. IV CATHETER PATENT, NO SIGNS OF INFECTION OR INFILTRATION NOTED, SALINE LOCK. BED AT LOWEST POSITION, CALL LIGHT WITHIN REACH, WILL ENDORSE CARE OF PT TO INCOMING NURSE. FALL AND SAFETY PRECAUTIONS IN PLACE.
--- NOTE | 2020-04-26 19:25 | NUR ---
OPENING NOTE RECEIVED PT IN BED, NO S/S OF DISTRESS OR SOB NOTED, PT HAS NO C/O PAIN AT THIS TIME, PT IN STABLE CONDITION. PT AAOX4, VERBAL. IV CATHETER PATENT, NO SIGNS OF INFECTION OR INFILTRATION NOTED, SALINE LOCKED. BED AT LOWEST POSITION, CALL LIGHT WITHIN REACH, WILL CONTINUE TO MONITOR PT FOR ANY CHANGES. FALL AND SAFETY PRECAUTIONS IN PLACE.
[2020-04-26 20:00] VITALS: BP_SYST 135
--- NOTE | 2020-04-26 20:25 | NUR ---
PAIN/MORPHINE PT REPORTING SEVERE ABDOMINAL PAIN. MORPHINE GIVEN ORDERED PRN FOR SEVERE PAIN. MEDICATION ACTIONS AND POTENTIAL SIDE EFFECTS DISCUSSED, PT VERBALIZED UNDERSTANDING. NO S/S OF ACUTE DISTRESS. SAFETY MAINTAINED. WILL MONITOR.
--- NOTE | 2020-04-26 22:35 | NUR ---
SNACKS PT GIVEN SANDWICH, JELLOS, AND CRANBERRY JUICE PER REQUEST. PT DENIES FURTHER NEEDS AT THIS TIME. SAFETY MAINTAINED. WILL MONITOR.
[2020-04-27] VITALS: BP_SYST 157
[2020-04-27] MEDS: MORPHINE 4 MG/ML INJ. SYRINGE IVP PRN ×4 (00:37→20:48)
[2020-04-27 01:08] LABS: % FREE PSA 18.3 % (.); FREE PSA 0.11 ng/mL; PROSTATE SPECIFIC AG TOTAL 0.6 ng/mL (0.0-4.0)
--- NOTE | 2020-04-27 02:56 | NUR ---
HIGH ALERT NOTE: Called Dr. COLEMAN back at [phone] identified within the medical roster to verify physician authenticity.
[2020-04-27] MEDS ORDERED: MORPHINE 4 MG/ML INJ. SYRINGE IVP ONE ×2 (03:00→03:15)
[2020-04-27] MEDS: metroNIDAZOLE 500 mg/NS 100 ML IV SCH ×3 (05:08→21:59)
--- NOTE | 2020-04-27 06:38 | NUR ---
CLOSING NOTE PT IN BED, NO S/S OF DISTRESS OR SOB NOTED, PT HAS NO C/O PAIN AT THIS TIME, PT IN STABLE CONDITION. PT AAOX4, VERBAL. IV CATHETER PATENT, NO SIGNS OF INFECTION OR INFILTRATION NOTED, SALINE LOCK. BED AT LOWEST POSITION, CALL LIGHT WITHIN REACH, WILL ENDORSE CARE OF PT TO ONCOMING NURSE. FALL AND SAFETY PRECAUTIONS IN PLACE.
[2020-04-27] MEDS: IPRATROPIUM BROM 0.5 MG/2.5 ML VIAL.NEB (ATROVENT) INH SCH ×4 (07:00→19:00)
[2020-04-27] MEDS: ALBUTEROL SULFATE 0.083% 2.5 MG/3 ML VIAL.NEB INH SCH ×4 (07:00→19:00)
[2020-04-27 07:03] LABS: BASOPHILS # (AUTO) 0.1 K/uL (0.0-0.2); BASOPHILS % (AUTO) 1.1 % (0.0-2.0); EOSINOPHILS # (AUTO) 0.1 K/uL (0.0-0.4); EOSINOPHILS % (AUTO) 0.9 % (0.0-4.0); HEMATOCRIT 40.2 % (36-54); HEMOGLOBIN 14.1 g/dL (14.0-18.0); LYMPHOCYTES # (AUTO) 2.5 K/uL (1.0-5.5); LYMPHOCYTES % (AUTO) 25.7 % (20.5-51.5); MEAN CORPUSCULAR HEMOGLOBIN 32 pg (27-31); MEAN CORPUSCULAR HGB CONC 35 % (32-36); MEAN CORPUSCULAR VOLUME 93 fL (79.0-98.0); MONOCYTES # (AUTO) 0.8 K/uL (0.0-1.0); MONOCYTES % (AUTO) 8.5 % (1.7-9.3); NEUTROPHILS # (AUTO) 6.2 K/uL (1.8-7.7); NEUTROPHILS % (AUTO) 63.8 % (40.0-70.0); PLATELET COUNT (AUTO) 498 K/uL (130-430); RED BLOOD CELL COUNT(AUTO) 4.34 MIL/uL (4.2-6.2); RED CELL DISTRIBUTION WIDTH 15.5 % (9.0-15.0); WHITE BLOOD COUNT (AUTO) 9.7 K/uL (4.8-10.8)
[2020-04-27 07:47] LABS: ALBUMIN 3.8 g/dL (3.4-4.8); CALCIUM 8.9 mg/dL (8.4-11.0); CREATININE 0.58 mg/dL (0.55-1.30); TOTAL BILIRUBIN 0.3 mg/dL (0.0-1.0)
[2020-04-27] MEDS: POLYETHYLENE GLYCOL 3350, 17 GM/ POWD.PACK PO SCH (08:44)
[2020-04-27] MEDS: Effexor XR 37.5 MG PO SCH (08:45)
[2020-04-27] MEDS: GEMFIBROZIL 600 MG TABLET (LOPID) PO SCH ×2 (08:45→20:45)
[2020-04-27] MEDS: tiZANidine HCL 4 MG TABLET PO SCH ×3 (08:45→20:45)
[2020-04-27] MEDS: TAMSULOSIN HCL 0.4 MG CAP PO SCH (08:45)
[2020-04-27 08:50] VITALS: BP_SYST 157
--- NOTE | 2020-04-27 10:27 | NUR ---
CONSULTATION PAGED/CALLED Reason for Consultation: [] PNEUMOTHORAX Person Who was Notified: [] TIGIST Consulting Physician: [] SHRUTI CERVANTES Special Forces Senior Sergeant Specialty: [] THORACIC SURGEON Ordering Physician: [] DR DOUGLAS
--- NOTE | 2020-04-27 10:33 | NUR ---
DR WALKER CONSULT. THIS RN SPOKE WITH DR SHRUTI WALKER MD SAID HE WILL NOT SEE THE PATIENT HE ALREADY SPOKE WITH THE PULMO DR GONZÁLES THE CASE, DR DOUGLAS IS HERE AND MADE AWARE
[2020-04-27] MEDS: LEVOFLOXACIN 500 MG/D5W 100 ML IV SCH (10:42)
[2020-04-27 11:40] VITALS: BP_SYST 157
[2020-04-27 12:00] VITALS: BP_SYST 132
--- NOTE | 2020-04-27 12:00 | NUR ---
PT'S AUGUSTE DC'D ORDERED. PT TOLERATED WELL, NO BLEEDING NOTED, PT EDUCATED ON WHAT TO EXPECT AFTER AUGUSTE D C. PT VERBALIZED UNDERSTANDING.
--- NOTE | 2020-04-27 13:00 | NUR ---
DR DAVIDSON WAS HERE, MADE AWARE THAT MOLINA WAS DC'D PER DR DOUGLAS. SAID IT IS OKAY. POST VOID BLADDER SCAN ORDER.
[2020-04-27 15:45] VITALS: BP_SYST 119
--- NOTE | 2020-04-27 17:40 | NUR ---
PT NOT URINATED YET AFTER AUGUSTE DC'D. BLADDER SCAN DONE. VOLUME NOTED WAS [phone]. PT SAID HE WILL TRY TO WALK AFTER DINNER. WILL INFORM DR DAVIDSON IF NO VOID.
--- NOTE | 2020-04-27 18:02 | NUR ---
INFORMED DR DAVIDSON THAT PT HAS NOT VOIDED YET SINCE 1200 NOON WHEN AUGUSTE WAS TAKEN OUT, TOLD MD THAT PER BLADDER SCAN PT VOLUME IS [phone], TOLD MD THAT PT SAID HE WILL TRY TO WALK AFTER DINNER TO CHECK IF HE CAN VOID. IF NOT AND PT HAS NOT VOIDED YET AND BLADDERS SCAN IS STILL GREATER THAN 400ML, AUGUSTE CAN BE REINSERTED , NO NEED TO CALL MD.
[2020-04-27 19:30] VITALS: BP_SYST 150
--- NOTE | 2020-04-27 19:30 | NUR ---
INITIAL NOTE PATIENT IS STABLE AND SITTING IN BED WATCHING TV. NO S/S OF RESPIRATORY DISTRESS NOTED. CALL LIGHT IN REACH. BED IS LOCKED, AND AT THE LOWEST POSITION. FALL, SAFETY, ASPIRATION, AND RESPIRATORY PRECAUTIONS WILL BE IN PLACE THROUGHOUT THE SHIFT. PLAN OF CARE IS DISCUSSED WITH PATIENT. PATIENT BLADDER SCAN WAS DONE AT THIS TIME SHOWED 644 ML. EDUCATED PATIENT ON WALKING. WILL MONITOR FOR URINE OUTPUT.
--- NOTE | 2020-04-27 20:30 | NUR ---
PATIENT URINATED. PATIENT WALKED TO THE RESTROOM AND URINATED 200 ML. WILL CONTINUE TO MONITOR.
--- NOTE | 2020-04-27 21:30 | NUR ---
PATIENT URINATED PATIENT URINATED IN URINAL AT THIS TIME 375 ML. WILL CONTINUE TO MONITOR.
[2020-04-28] VITALS: BP_SYST 135
[2020-04-28] MEDS: metroNIDAZOLE 500 mg/NS 100 ML IV SCH ×3 (05:02→21:22)
--- NOTE | 2020-04-28 06:51 | NUR ---
CLOSING NOTE PATIENT IS STABLE AND LAYING IN BED AND WATCHING TV. NO S/S OF RESPIRATORY DISTRESS NOTED. CALL LIGHT IN REACH. BED IS LOCKED, AND AT THE LOWEST POSITION. FALL, SAFETY, ASPIRATION, AND RESPIRATORY PRECAUTIONS HAS BEEN IN PLACE THROUGHOUT THE SHIFT. ALL NEED MET. WILL CONTINUE TO MONITOR UNTIL SBAR REPORT IS ENDORSED TO AM NURSE. Addendum: 04/28/20 at 0653 by Estuardo Romero RN PT HAS WALKED TO THE RESTROOM AND URINATED MULTIPLE TIMES THROUGHOUT THE NIGHT.
[2020-04-28 06:57] LABS: BASOPHILS # (AUTO) 0.1 K/uL (0.0-0.2); BASOPHILS % (AUTO) 0.9 % (0.0-2.0); EOSINOPHILS # (AUTO) 0.2 K/uL (0.0-0.4); EOSINOPHILS % (AUTO) 2.5 % (0.0-4.0); HEMATOCRIT 38.3 % (36-54); LYMPHOCYTES # (AUTO) 2.7 K/uL (1.0-5.5); LYMPHOCYTES % (AUTO) 33.4 % (20.5-51.5); MEAN CORPUSCULAR HEMOGLOBIN 32 pg (27-31); MEAN CORPUSCULAR HGB CONC 34 % (32-36); MEAN CORPUSCULAR VOLUME 93 fL (79.0-98.0); MONOCYTES # (AUTO) 0.6 K/uL (0.0-1.0); MONOCYTES % (AUTO) 7.8 % (1.7-9.3); NEUTROPHILS # (AUTO) 4.5 K/uL (1.8-7.7); NEUTROPHILS % (AUTO) 55.4 % (40.0-70.0); PLATELET COUNT (AUTO) 445 K/uL (130-430); RED BLOOD CELL COUNT(AUTO) 4.12 MIL/uL (4.2-6.2); RED CELL DISTRIBUTION WIDTH 15.5 % (9.0-15.0); WHITE BLOOD COUNT (AUTO) 8.1 K/uL (4.8-10.8)
[2020-04-28] MEDS: ALBUTEROL SULFATE 0.083% 2.5 MG/3 ML VIAL.NEB INH SCH ×5 (07:00→23:00)
[2020-04-28] MEDS: IPRATROPIUM BROM 0.5 MG/2.5 ML VIAL.NEB (ATROVENT) INH SCH ×5 (07:00→23:04)
[2020-04-28 07:19] LABS: ALBUMIN 3.5 g/dL (3.4-4.8); CALCIUM 8.9 mg/dL (8.4-11.0); CREATININE 0.71 mg/dL (0.55-1.30); TOTAL BILIRUBIN 0.2 mg/dL (0.0-1.0)
[2020-04-28] MEDS ORDERED: MAGNESIUM CITRATE 300 ML ORAL SOLUTION PO ONE ×2 (07:30→08:45)
--- NOTE | 2020-04-28 08:00 | NUR ---
VOID PT VOIDED ABOUT 300ML OF YELLOW URINE, BLADDER SCAN DONE, NOTED NO RESIDUAL. WILL CONTINUE TO MONITOR PT.
[2020-04-28 08:10] VITALS: BP_SYST 140
[2020-04-28] MEDS: Effexor XR 37.5 MG PO SCH (08:27)
[2020-04-28] MEDS: POLYETHYLENE GLYCOL 3350, 17 GM/ POWD.PACK PO SCH (08:27)
[2020-04-28] MEDS: tiZANidine HCL 4 MG TABLET PO SCH ×3 (08:27→21:21)
[2020-04-28] MEDS: TAMSULOSIN HCL 0.4 MG CAP PO SCH (08:27)
[2020-04-28] MEDS: GEMFIBROZIL 600 MG TABLET (LOPID) PO SCH ×2 (08:37→21:21)
[2020-04-28] MEDS: MORPHINE 4 MG/ML INJ. SYRINGE IVP PRN ×3 (10:03→21:50)
--- NOTE | 2020-04-28 10:05 | NUR ---
VOID PT VOIDED ABOUT 425ML OF YELLOW URINE, BLADDER SCAN DONE, NOTED NO RESIDUAL. WILL CONTINUE TO MONITOR PT.
--- NOTE | 2020-04-28 10:20 | NUR ---
MD CALL SPOKE WITH DR DAVIDSON, UROLOGIST AND MADE HIM AWARE THAT PT VOIDED X1 AT 8 AM AND BLADDER SCAN WAS DONE AND NO RESIDUAL PRESENT. PER MD TO CONTINUE TO MONITOR PT.
--- NOTE | 2020-04-28 10:23 | NUR ---
MD TIKI NICHOLS, AWARE OF PATIENT'S CONDITION, NEW ORDERS GIVEN.
[2020-04-28] MEDS: LEVOFLOXACIN 500 MG/D5W 100 ML IV SCH (11:09)
[2020-04-28 11:25] VITALS: BP_SYST 165
--- NOTE | 2020-04-28 14:20 | NUR ---
VOID PT VOIDED ABOUT 300ML OF YELLOW URINE, BLADDER SCAN DONE, NOTED NO RESIDUAL. WILL CONTINUE TO MONITOR PT.
[2020-04-28 16:05] VITALS: BP_SYST 124
--- NOTE | 2020-04-28 19:30 | NUR ---
INITIAL NOTES: RECEIVED REPORT FROM DAYSHIFT RN. PATIENT IS IN BED, WATCHING TV. NO ACUTE DISTRESS. EVEN, NONLABORED BREATHING ON ROOM AIR. IV SITE IS PATENT AND INTACT. BED IS LOCKED AT LOWEST POSITION. SIDE RAILS UP X2. CALL LIGHT IS WITH PATIENT. SAFETY AND FALL PRECAUTIONS IN PLACE. WILL CONTINUE WITH PLAN OF CARE.
[2020-04-28 20:00] VITALS: BP_SYST 134
--- NOTE | 2020-04-28 21:45 | NUR ---
BLADDER SCANNER/REFUSED IN AND OUT CATHETER: PERFORMED BLADDER SCANNER PER MD ORDER. PATIENT STATED HE JUST VOIDED ABOUT 30 MINS AGO AND DID NOT NEED TO VOID AT THE TIME. RESIDUAL SHOWED >675ML. EDUCATED PATIENT ON INDICATIONS FOR IN AND OUT CATHETER. PATIENT TRIED TO VOID AGAIN, HE VOIDED 175ML. PATIENT STATED, "WILL PEE 800ML IN THE MORNING. I DON'T NEED THE CATHETER." PATIENT REFUSED IN AND OUT CATH AT THIS TIME.
--- NOTE | 2020-04-28 21:50 | NUR ---
PAIN: PATIENT COMPLAINED OF SEVERE ABDOMINAL PAIN. MORPHINE 4MG IVP INDICATED. EDUCATED PATIENT ON INDICATIONS AND SIDE EFFECTS OF MEDICATIONS. PATIENT VERBALIZED UNDERSTANDING. MEDICATION ADMINISTERED PER MD ORDER. WILL CONTINUE TO MONITOR AND REASSESS.
[2020-04-29] VITALS: BP_SYST 155
[2020-04-29] MEDS: IPRATROPIUM BROM 0.5 MG/2.5 ML VIAL.NEB (ATROVENT) INH SCH ×2 (03:00→07:00)
[2020-04-29] MEDS: ALBUTEROL SULFATE 0.083% 2.5 MG/3 ML VIAL.NEB INH SCH ×2 (03:00→07:00)
--- NOTE | 2020-04-29 03:32 | NUR ---
ROUNDS/REFUSED BLADDER SCAN: PATIENT IS IN BED RESTING. EDUCATED PATIENT ON INDICATIONS FOR BLADDER SCANNER. PATIENT REFUSED BLADDER SCAN AT THIS TIME. BREATHING IS EVEN AND NONLABORED. CALL LIGHT IS WITH PATIENT. SAFETY AND FALL PRECAUTIONS IN PLACE. WILL CONTINUE MONITORING PATIENT.
[2020-04-29] MEDS: metroNIDAZOLE 500 mg/NS 100 ML IV SCH ×2 (05:53→13:35)
--- NOTE | 2020-04-29 06:38 | NUR ---
CLOSING NOTES: PATIENT IS WATCHING TV IN BED. NO ACUTE DISTRESS. EVEN, NONLABORED RESPIRATIONS ON ROOM AIR. IV SITE IS PATENT AND INTACT. ALL NEEDS MET. BED IS LOCKED AT LOWEST POSITION. SIDE RAILS UP X2. CALL LIGHT IS WITH PATIENT. SAFETY AND FALL PRECAUTIONS IN PLACE. WILL ENDORSE CARE TO DAYSHIFT RN.
[2020-04-29 06:41] LABS: BASOPHILS # (AUTO) 0.1 K/uL (0.0-0.2); BASOPHILS % (AUTO) 0.9 % (0.0-2.0); EOSINOPHILS # (AUTO) 0.2 K/uL (0.0-0.4); HEMATOCRIT 35.7 % (36-54); HEMOGLOBIN 12.2 g/dL (14.0-18.0); LYMPHOCYTES # (AUTO) 2.8 K/uL (1.0-5.5); LYMPHOCYTES % (AUTO) 37.2 % (20.5-51.5); MEAN CORPUSCULAR HEMOGLOBIN 32 pg (27-31); MEAN CORPUSCULAR HGB CONC 34 % (32-36); MEAN CORPUSCULAR VOLUME 93 fL (79.0-98.0); MONOCYTES # (AUTO) 0.5 K/uL (0.0-1.0); MONOCYTES % (AUTO) 7.3 % (1.7-9.3); NEUTROPHILS # (AUTO) 3.9 K/uL (1.8-7.7); NEUTROPHILS % (AUTO) 51.6 % (40.0-70.0); PLATELET COUNT (AUTO) 426 K/uL (130-430); RED BLOOD CELL COUNT(AUTO) 3.86 MIL/uL (4.2-6.2); RED CELL DISTRIBUTION WIDTH 15.4 % (9.0-15.0); WHITE BLOOD COUNT (AUTO) 7.5 K/uL (4.8-10.8)
--- NOTE | 2020-04-29 07:45 | NUR ---
Opening Notes Patient is awake, alert and oriented x4. No resp distress noted. Breathing is even and unlabored. Pt denies any pain at this time. Pt reports having trouble sleeping at night time, d/t pain. IV site on right FA, 20 gauge intact at this time, flushing well, saline lock. Pt also reports constipated, no BM for 6 days, requesting a stool softener. Pt has a BSC and urinal available at bedside. Pt denies any NV, cough or abnormal bleeding. All needs met. Safety and fall precautions in place. Bed in lowest position, alarm on, locked. Will continue to monitor.
[2020-04-29 07:51] LABS: ALBUMIN 3.6 g/dL (3.4-4.8); CALCIUM 8.7 mg/dL (8.4-11.0); CREATININE 0.7 mg/dL (0.55-1.30); POTASSIUM 4.1 mmol/L (3.5-5.1); TOTAL BILIRUBIN 0.2 mg/dL (0.0-1.0)
[2020-04-29 08:00] VITALS: BP_SYST 170
[2020-04-29] MEDS: POLYETHYLENE GLYCOL 3350, 17 GM/ POWD.PACK PO SCH ×2 (09:00→10:22)
[2020-04-29] MEDS: tiZANidine HCL 4 MG TABLET PO SCH ×2 (09:12→15:41)
[2020-04-29] MEDS: Effexor XR 37.5 MG PO SCH (09:12)
[2020-04-29] MEDS: TAMSULOSIN HCL 0.4 MG CAP PO SCH (09:13)
[2020-04-29] MEDS: hydrALAZINE HCL 20 MG/ML VIAL IVP PRN (09:13)
[2020-04-29] MEDS: GEMFIBROZIL 600 MG TABLET (LOPID) PO SCH (09:13)
[2020-04-29] MEDS: MORPHINE 4 MG/ML INJ. SYRINGE IVP PRN ×2 (09:15→13:30)
--- NOTE | 2020-04-29 09:15 | NUR ---
Morphine 4 mg IVP x pain Patient report 9/10 abdominal pain, requesting pain medication. Educated pt on AE/SE of medications, aware and agreed. Administered Morphine 4 mg IVP, tolerated well. Will continue to monitor.
--- NOTE | 2020-04-29 10:00 | NUR ---
Patient is being seen and examined by DR DYSON
--- NOTE | 2020-04-29 10:06 | NUR ---
Notes Patient is laying in bed, resting at this time. No resp distress noted. Breathing is even and unlabored. Pt reports relief from pain from earlier in shift. Will continue to monitor.
[2020-04-29] MEDS ORDERED: POLY17PO4 PO (10:20)
[2020-04-29] MEDS ORDERED: TAMS0.4C96 PO (10:21)
[2020-04-29 11:28] VITALS: BP_SYST 137
--- NOTE | 2020-04-29 11:37 | NUR ---
Patient is being seen and examined by PHYSICAL THERAPY
[2020-04-29] MEDS: LEVOFLOXACIN 500 MG/D5W 100 ML IV SCH (11:48)
--- NOTE | 2020-04-29 12:30 | NUR ---
Notes Patient is laying in bed,s leeping. Patient is agitated. Per patient, "I dont feel like Im ready to be discharged! Why is the doctor discharging me so quickly? I needed a notice last Wednesday!" Pt was educated that discharge notices are usually not scheduled, and given that same day. Patient is agitated, stating he does not want to leave yet. Will notify MD Galicia.
--- NOTE | 2020-04-29 14:00 | NUR ---
Notes Patient is asleep in bed, no resp distress noted. Breahting is even and unlabored. Will continue to monitor.
[2020-04-29 14:42] VITALS: BP_SYST 148
[2020-04-29] MEDS ORDERED: ALBMDI INH (14:59)
[2020-04-29 15:33] VITALS: BP_SYST 135
== END 2020-04-29 16:35 | disposition home or self-care (01) | DRG 445 ==
LOC: SED 07:59 → SMU 11:28
PROVIDERS: ADMIT Internal Medicine Hospice and Palliative Medicine; ATTEND Internal Medicine Hospice and Palliative Medicine
DX: K80.20 Calculus of gallbladder without cholecystitis without obstruction (principal); J93.81 Chronic pneumothorax; J90 Pleural effusion, not elsewhere classified; E87.1 Hypo-osmolality and hyponatremia; J44.9 Chronic obstructive pulmonary disease, unspecified; K59.00 Constipation, unspecified; K82.8 Other specified diseases of gallbladder; E78.00 Pure hypercholesterolemia, unspecified; F32.9 Major depressive disorder, single episode, unspecified; G89.29 Other chronic pain; K57.90 Diverticulosis of intestine, part unspecified, without perforation or abscess without bleeding; N28.1 Cyst of kidney, acquired; E87.6 Hypokalemia; Z87.891 Personal history of nicotine dependence; Z20.828 Contact with and (suspected) exposure to other viral communicable diseases
CPT/HCPCS: 36415; 71045; 71250-TC; 76376; 76705; 78226; 80053; 81003; 83690-TC; 84153; 85025; 87081; 93005; 94640; 96361; 96374; 96375; 99291; A9537; J0360; J1956; J2060; J2270; J2405; J3010; J3480; J3490; J7050; J7613

== ENCOUNTER 2022-01-29 18:43 | Observation (INO) | payer OTHER ==
[~2022-01-29] VITALS: Ht 167.6 cm; Wt 81.2 kg
[~2022-01-29 18:43] MED LIST changes: +ALBMDI INH; +BACL10TA PO; +PRO40 PO; +TAMS0.4C96 PO; -TIZA4TAB11 PO; +TRAZ-250 PO
--- NOTE | 2022-01-29 18:43 | NUR ---
BROUGHT BACK TO BED 2 AND TRIAGED. REPORT GIVEN TO ELECTROSTATIC PAINTER NURSES
[2022-01-29 18:45] VITALS: BP_SYST 172
[2022-01-29] MEDS ORDERED: NACL 0.9% 1,000 ML IV ONE (19:00)
[2022-01-29 19:15] LABS: BASOPHILS % (AUTO) 0.4 % (0.0-2.0); HEMATOCRIT 34.4 % (36-54); HEMOGLOBIN 11.7 g/dL (14.0-18.0); LYMPHOCYTES % (AUTO) 17.8 % (20.5-51.5); MEAN CORPUSCULAR HEMOGLOBIN 27 pg (27-31); MEAN CORPUSCULAR HGB CONC 34 % (32-36); MEAN CORPUSCULAR VOLUME 79 fL (79.0-98.0); MONOCYTES # (AUTO) 0.4 K/uL (0.0-1.0); MONOCYTES % (AUTO) 3.4 % (1.7-9.3); NEUTROPHILS # (AUTO) 8.8 K/uL (1.8-7.7); NEUTROPHILS % (AUTO) 78.4 % (40.0-70.0); PLATELET COUNT (AUTO) 584 K/uL (130-430); RED BLOOD CELL COUNT(AUTO) 4.37 MIL/uL (4.2-6.2); RED CELL DISTRIBUTION WIDTH 17.8 % (9.0-15.0); WHITE BLOOD COUNT (AUTO) 11.2 K/uL (4.8-10.8)
[2022-01-29] MEDS ORDERED: KETOROLAC TROMETHAMINE 30 MG VIAL ONE ×2 (19:53→22:56)
[2022-01-29] MEDS ORDERED: KETOROLAC TROMETHAMINE 30 MG VIAL IVP ONE ×2 (20:00→23:00)
--- NOTE | 2022-01-29 20:25 | NUR ---
PT IS AA&OX4. NAD, AFEBRILE. C/O ABD PAIN 01/07. ADMINISTERED MEDS ORDERED. SAFE & HAZARD FREE ENVIRONMENT PROVIDED. [place], AMBULATORY W/ STEADY GAIT, NO ASSISTIVE DEVICE. CONTINENT B & B. WILL CON'T TO MONITOR
--- NOTE | 2022-01-29 20:27 | NUR ---
ER Dr. DEXTER at bedside examining patient.
--- NOTE | 2022-01-29 20:27 | NUR ---
# 20 gauge angiocath placed to LEFT AC. Use of asceptic technique. Opsite placed over site. Blood return noted. Blood for lab drawn from site. Flushed with 10 cc of normal saline. No evidence of infiltration noted. Patient tolerated well.
--- NOTE | 2022-01-29 20:30 | NUR ---
Blood for labwork drawn Patient tolerated
--- NOTE | 2022-01-29 20:31 | NUR ---
YOMI OSHEA SENT TO LAB BY EMT.
[2022-01-29 20:38] LABS: CALCIUM 10.1 mg/dL (8.4-11.0); POTASSIUM 4.2 mmol/L (3.5-5.1)
[2022-01-29 20:39] LABS: ALBUMIN 4.4 g/dL (3.4-4.8); CREATININE 1.09 mg/dL (0.55-1.30); TOTAL BILIRUBIN 0.3 mg/dL (0.0-1.0)
--- NOTE | 2022-01-29 21:40 | NUR ---
URINE SENT TO LAB.
--- NOTE | 2022-01-29 22:00 | NUR ---
# 16 FR Greenberg catheter with use of sterile technique. Immediate return of 1200 cc urine noted. Bedside drainage bag placed below level of bladder. Pt tolerated procedure.
[2022-01-29] MEDS ORDERED: LORazepam 2 MG/ML VIAL ONE (22:57)
[2022-01-29] MEDS ORDERED: GOLYTELY / COLYTE SOLUTION 4 LITERS PO ONE (23:00)
[2022-01-29] MEDS ORDERED: LORazepam 2 MG/ML VIAL IVP ONE (23:00)
[2022-01-29] MEDS ORDERED: KETAMINE 30 MG/3 ML SYRINGE IVP ONE (23:00)
--- NOTE | 2022-01-29 23:03 | NUR ---
Admit bed requested Patient will be admitted to care of Lucita Hurley Admitted to MS unit. Diagnosis CONSTIPATION,BOWEL OBSTRUCTION Inpatient (Yes or No) NO Observation (Yes or No) YES Orientation concerns or request close to nursing station (Yes or No) NO Covid Status PENDING On vent or bipap NO Isolation requirements NO Needs a sitter NO From Home (Yes or if No enter name of facility) YES Requires Dialysis (Yes or No) NO Med Rec Completed (Yes of No) PENDING
[2022-01-29 23:30] LABS: BILIRUBIN,URINE NEGATIVE (NEGATIVE); BLOOD, URINE NEGATIVE (NEGATIVE); CLARITY/URINE CLEAR (CLEAR); COLOR,URINE YELLOW (YELLOW); GLUCOSE,URINE NEGATIVE (NEGATIVE); KETONES,URINE NEGATIVE (NEGATIVE); LEUKOCYTE ESTERASE ,URINE NEGATIVE (NEGATIVE); NITRITE, URINE NEGATIVE (NEGATIVE); PROTEIN URINE NEGATIVE (NEGATIVE); UROBILINOGEN,URINE 0.2 (0.2-1.0)
--- NOTE | 2022-01-30 00:31 | NUR ---
Patient will be admitted to care of DR. JIMÉNEZ. Admitted to MEDSURG unit. Will go to room 102B. Belongings list completed. Complete and up to date summary report printed. SBAR report to be given at bedside with opportunity for questions.
[2022-01-30 00:35] VITALS: BP_SYST 162
[2022-01-30] MEDS ORDERED: HYDR-3610 PO (01:04)
[2022-01-30 04:00] VITALS: BP_SYST 125
--- NOTE | 2022-01-30 05:49 | NUR ---
MD MADE AWARE THAT PATIENT REFUSES TO DRINK GOLYTELY DURING THE NIGHT. PT STATES HE WILL DRINK IT DURING THE DAY WHEN HE FEELS BETTER
--- NOTE | 2022-01-30 05:49 | NUR ---
MD ORDERED MEDICATION FOR PT'S PAIN (SEE ORDERS).
[2022-01-30] MEDS ORDERED: MORPHINE 4 MG INJ. 4 MG/ML VIAL IVP PRN (06:30)
[2022-01-30 08:00] VITALS: BP_SYST 138
[2022-01-30] MEDS: MORPHINE 2 MG/ML INJ. SYRINGE IVP PRN ×3 (09:11→22:52)
--- NOTE | 2022-01-30 10:56 | NUR ---
CONSULTATION PAGED/CALLED Reason for Consultation: [] CONSTIPATION/ BOWEL OBSTRUCTION Person Who was Notified: [] [place], FROM [facility] Consulting Physician: [] DR PALOMINO Industrial Education Teacher Specialty: [] GI Ordering Physician: [] DR JIMÉNEZ
--- NOTE | 2022-01-30 10:58 | NUR ---
CONSULTATION PAGED/CALLED Reason for Consultation: [] BOWEL OBSTRUCTION Person Who was Notified: [] KENNY Consulting Physician: [] DR Lori BOTELLO RN MATERNAL CHILD FOR DR Heena JERRY Pulling Machine Operator Specialty: [] GEN SURGEON Ordering Physician: [] DR JIMÉNEZ
--- NOTE | 2022-01-30 11:11 | NUR ---
notes- DR Lori BOTELLO ONCOLOGY NURSE NAVIGATOR FOR DR Heena Alcantar for consultation for bowel obstruction.
--- NOTE | 2022-01-30 11:11 | NUR ---
GEN SURGEON COVERING DR Heena JERRY IS DR BOTELLO. NOTIFIED DR BOTELLO. SPOKE TO EBONIE.
[2022-01-30 11:24] LABS: BASOPHILS # (AUTO) 0.1 K/uL (0.0-0.2); BASOPHILS % (AUTO) 0.5 % (0.0-2.0); EOSINOPHILS % (AUTO) 0.1 % (0.0-4.0); HEMATOCRIT 34.1 % (36-54); HEMOGLOBIN 11.6 g/dL (14.0-18.0); LYMPHOCYTES # (AUTO) 2.6 K/uL (1.0-5.5); LYMPHOCYTES % (AUTO) 22.4 % (20.5-51.5); MEAN CORPUSCULAR HEMOGLOBIN 27 pg (27-31); MEAN CORPUSCULAR HGB CONC 34 % (32-36); MEAN CORPUSCULAR VOLUME 79 fL (79.0-98.0); MONOCYTES # (AUTO) 0.9 K/uL (0.0-1.0); MONOCYTES % (AUTO) 7.8 % (1.7-9.3); NEUTROPHILS # (AUTO) 8.1 K/uL (1.8-7.7); NEUTROPHILS % (AUTO) 69.2 % (40.0-70.0); PLATELET COUNT (AUTO) 494 K/uL (130-430); RED CELL DISTRIBUTION WIDTH 18.3 % (9.0-15.0); WHITE BLOOD COUNT (AUTO) 11.7 K/uL (4.8-10.8)
[2022-01-30 11:32] VITALS: BP_SYST 161
--- NOTE | 2022-01-30 11:51 | NUR ---
NOTES: Dr. Neely here for pt. consult, nurse Rosy payne.
[2022-01-30] MEDS ORDERED: HYDR-3921 PO (11:52)
--- NOTE | 2022-01-30 11:56 | NUR ---
Notes Dr. Neely came to see patient. Patient is resting, awake. Denies SOB. States pain is tolerable at this time. No s.s of distress noted. Breathing is even and nonlabored. Safety precautions in place and call light within reach.
[2022-01-30 11:58] LABS: ALBUMIN 4.2 g/dL (3.4-4.8); POTASSIUM 3.8 mmol/L (3.5-5.1); TOTAL BILIRUBIN 0.3 mg/dL (0.0-1.0)
[2022-01-30] MEDS: NACL 0.9% 1,000 ML IV SCH ×2 (12:01→23:11)
[2022-01-30 12:16] LABS: CALCIUM 9.3 mg/dL (8.4-11.0)
[2022-01-30 15:23] VITALS: BP_SYST 158
--- NOTE | 2022-01-30 16:00 | NUR ---
Notes Patient is resting, eyes closed. No s.s of distress noted. Breathing is even and nonlabored. No facial grimace. No s/s of distress noted. Safety precautions in place and call light within reach.
--- NOTE | 2022-01-30 18:33 | NUR ---
Notes Paged Dr. Zheng, internal control analyst for Dr. Molina, for bloody urine in Greenberg bag. waiting for call back. Addendum: 01/30/22 at 1848 [address] Rosy [address] LVN [address]. Molina is internal control analyst. exchange has schedule wrong. Called Dr. Molina. awaiting call back.
[2022-01-30] MEDS ORDERED: MAGNESIUM CITRATE 300 ML ORAL SOLUTION PO ONE (19:15)
[2022-01-30] MEDS: POLYETHYLENE GLYCOL 3350, 17 GM/ POWD.PACK PO SCH (19:15)
[2022-01-30] MEDS ORDERED: SODIUM PHOSPHATE,MONO-DIBASIC 133 ML ENEMA RC ONE (19:15)
[2022-01-30] MEDS ORDERED: DOCUSATE SODIUM 100 MG CAPSULE PO ONE (19:30)
--- NOTE | 2022-01-30 19:32 | NUR ---
Closing Notes Patient in no distress. Denies pain. No SOB. Breathing is even and nonlabored, on room air. Patient ambulatory, gait steady. Dr. Molina called backMD aware of blood in Greenberg bag. MD states to continue to observe and to call back if blood clots present. New orders received. All needs met. Safety precautions in place and call light within reach. Endorsed care to noc shift nurse.
[2022-01-30 20:47] VITALS: BP_SYST 143
[2022-01-30] MEDS ORDERED: MELATONIN 3 MG TABLET PO PRN (22:15)
[2022-01-30] MEDS: TEMAZEPAM 15 MG CAPSULE PO PRN (22:59)
[2022-01-30] MEDS: ACETAMINOPHEN 325 MG TABLET PO PRN (23:00)
[2022-01-31 00:59] VITALS: BP_SYST 153
[2022-01-31] MEDS: MORPHINE 2 MG/ML INJ. SYRINGE IVP PRN ×3 (02:44→15:29)
[2022-01-31] MEDS: ACETAMINOPHEN 325 MG TABLET PO PRN ×2 (05:08→18:04)
[2022-01-31 07:59] LABS: ALBUMIN 3.9 g/dL (3.4-4.8); CREATININE 0.9 mg/dL (0.55-1.30); POTASSIUM 3.5 mmol/L (3.5-5.1); TOTAL BILIRUBIN 0.4 mg/dL (0.0-1.0)
[2022-01-31 08:00] VITALS: BP_SYST 130
--- NOTE | 2022-01-31 08:00 | NUR ---
Initial Notes Patient is AOx4. Ambulatory. No s.s of distress. On room air, O2 sat is at 99%. Denies SOB. Breathing is even and nonlabored. Patient was given pain medication prior to start of shift. Patient remains NPO. Safety precautions in place and call light within reach.
[2022-01-31] MEDS ORDERED: NALOXONE HCL 0.4 MG/ML AMP (NARCAN) IVP PRN (10:15)
[2022-01-31] MEDS: HYDROcodone/ACETAMIN 5-325 MG TAB (NORCO/ VICODIN) PO PRN ×2 (10:26→21:19)
[2022-01-31] MEDS: POLYETHYLENE GLYCOL 3350, 17 GM/ POWD.PACK PO SCH (10:26)
[2022-01-31] MEDS: DOCUSATE SODIUM 100 MG CAPSULE PO SCH ×2 (10:26→21:19)
[2022-01-31 12:00] VITALS: BP_SYST 125
--- NOTE | 2022-01-31 12:00 | NUR ---
Notes Greenberg removed. Patient tolerated well.
--- NOTE | 2022-01-31 12:00 | NUR ---
Notes Dr. Neely came to see patient earlier.No s.s of distress noted. Denies SOB. Patient is now on clear liquid diet. Safety precautions in place and call light within reach.
[2022-01-31 12:09] LABS: BASOPHILS % (AUTO) 0.3 % (0.0-2.0); EOSINOPHILS % (AUTO) 0.1 % (0.0-4.0); HEMATOCRIT 33.7 % (36-54); HEMOGLOBIN 11.5 g/dL (14.0-18.0); LYMPHOCYTES # (AUTO) 2.3 K/uL (1.0-5.5); LYMPHOCYTES % (AUTO) 21.1 % (20.5-51.5); MEAN CORPUSCULAR HEMOGLOBIN 27 pg (27-31); MEAN CORPUSCULAR HGB CONC 34 % (32-36); MEAN CORPUSCULAR VOLUME 80 fL (79.0-98.0); MONOCYTES # (AUTO) 1.2 K/uL (0.0-1.0); MONOCYTES % (AUTO) 10.5 % (1.7-9.3); NEUTROPHILS # (AUTO) 7.5 K/uL (1.8-7.7); PLATELET COUNT (AUTO) 476 K/uL (130-430); RED CELL DISTRIBUTION WIDTH 17.6 % (9.0-15.0)
[2022-01-31] MEDS: NACL 0.9% 1,000 ML IV SCH ×2 (12:11→21:20)
[2022-01-31] MEDS ORDERED: ONDANSETRON HCL 4 MG/2 ML VIAL IM PRN (13:00)
[2022-01-31 16:00] VITALS: BP_SYST 130
--- NOTE | 2022-01-31 17:07 | NUR ---
NOTES PATIENT STATES VERY ANXIOUS AND NOT FEELING GOOD. REQUEST SOMETHING TO HELP WITH ANXIETY. PAGED DR. JIMÉNEZ.
[2022-01-31] MEDS ORDERED: LORazepam 1 MG TABLET PO ONE (17:30)
--- NOTE | 2022-01-31 19:35 | NUR ---
Closing Notes Patient eating dinner, clear liquid. Patient appears calmer than earlier. Patient stated not as anxious as before. No s.s of distress noted. On room air, breathing is even and nonlabored. All needs met. Safety precautions in place and call light within reach. Endorsed care to oncoming nurse.
[2022-01-31 21:00] VITALS: BP_SYST 133
--- NOTE | 2022-01-31 21:15 | NUR ---
Patient awake alert out of room ambulating no SOB assist back to room procedures explained FALL RISK measures implemented / .
[2022-01-31] MEDS: TEMAZEPAM 15 MG CAPSULE PO PRN (21:18)
[2022-02-01 00:07] VITALS: BP_SYST 150
--- NOTE | 2022-02-01 03:05 | NUR ---
NORCO TABLET po given for acute general pain & helpful / .
--- NOTE | 2022-02-01 05:53 | NUR ---
Patient awake out of room ambulating no SOB noted skin dry warm activity tolerating po fluids also tolerate / .
--- NOTE | 2022-02-01 06:17 | NUR ---
[place] Tablet po given for acute general pain continue to monitor / .
[2022-02-01] MEDS: HYDROcodone/ACETAMIN 5-325 MG TAB (NORCO/ VICODIN) PO PRN (06:28)
[2022-02-01 06:56] LABS: BASOPHILS % (AUTO) 0.4 % (0.0-2.0); EOSINOPHILS % (AUTO) 0.3 % (0.0-4.0); HEMATOCRIT 30.9 % (36-54); HEMOGLOBIN 10.6 g/dL (14.0-18.0); LYMPHOCYTES # (AUTO) 2.5 K/uL (1.0-5.5); LYMPHOCYTES % (AUTO) 33.9 % (20.5-51.5); MEAN CORPUSCULAR HEMOGLOBIN 27 pg (27-31); MEAN CORPUSCULAR HGB CONC 34 % (32-36); MEAN CORPUSCULAR VOLUME 79 fL (79.0-98.0); MONOCYTES # (AUTO) 0.9 K/uL (0.0-1.0); MONOCYTES % (AUTO) 11.8 % (1.7-9.3); NEUTROPHILS % (AUTO) 53.6 % (40.0-70.0); PLATELET COUNT (AUTO) 419 K/uL (130-430); RED BLOOD CELL COUNT(AUTO) 3.91 MIL/uL (4.2-6.2); RED CELL DISTRIBUTION WIDTH 17.6 % (9.0-15.0); WHITE BLOOD COUNT (AUTO) 7.5 K/uL (4.8-10.8)
--- NOTE | 2022-02-01 07:25 | NUR ---
Morning rounds: Hand report received from night nurse Bandar. Patient resting on the bed. Call light with in reach. Bed locked at lowest position. No acute distress.
[2022-02-01 07:44] LABS: CALCIUM 8.9 mg/dL (8.4-11.0); CREATININE 0.85 mg/dL (0.55-1.30)
[2022-02-01 08:00] VITALS: BP_SYST 148
[2022-02-01] MEDS: POLYETHYLENE GLYCOL 3350, 17 GM/ POWD.PACK PO SCH ×2 (09:00→09:45)
[2022-02-01] MEDS: DOCUSATE SODIUM 100 MG CAPSULE PO SCH ×2 (09:00→09:45)
[2022-02-01 09:33] LABS: POTASSIUM 2.5 mmol/L (3.5-5.1)
[2022-02-01] MEDS ORDERED: POTASSIUM CHLORIDE 20 MEQ TAB.PRT.SR PO ONE (09:45)
[2022-02-01] MEDS ORDERED: POTASSIUM CHLORIDE 40 MEQ in NS 250 ML IV ONE (11:00)
[2022-02-01 11:34] VITALS: BP_SYST 139; BP_SYST 148
[2022-02-01] MEDS: MORPHINE 2 MG/ML INJ. SYRINGE IVP PRN ×2 (12:10→20:11)
--- NOTE | 2022-02-01 13:00 | NUR ---
Assumed Care Patient is eating lunch, tolerating well. No complaints of pain. Ambulatory with steady gait. No s.s of distress noted. Breathing is even and nonlabored, on room air. Safety precautions in place and call light within reach.
[2022-02-01] MEDS ORDERED: DOCUSATE SODIUM 100 MG CAPSULE PO ONE (15:00)
--- NOTE | 2022-02-01 16:17 | NUR ---
Dietitian Recommendations * Regular diet, Ensure Enlive TID (ONS yields 1050 kcal/day, 60 gm protein/day) * Encourage increase PO intakes LP, MS, RD Please refer to Nutrition Assessment for details. Addendum: 02/01/22 at [address] Amended: Links added.
[2022-02-01] MEDS: NACL 0.9% 1,000 ML IV SCH (16:20)
--- NOTE | 2022-02-01 16:40 | NUR ---
NOTES PATIENT IS RESTING, EYES CLOSED. NO FACIAL GRIMACE NOTED. NO S.S OF DISTRESS NOTED. SAFETY PRECAUTIONS IN PLACE AND CALL LIGHT WITHIN REACH.
[2022-02-01 16:53] VITALS: BP_SYST 139; BP_SYST 159
--- NOTE | 2022-02-01 19:35 | NUR ---
CLOSING NOTES PATIENT IS EATING DINNER. DENIES ANY NAUSEA. NO ACUTE DISTRESS NOTED. BREATHING IS EVEN AND NONLABORED, ON ROOM AIR. ALL NEEDS MET. SAFETY PRECAUTIONS IN PLACE AND CALL LIGHT WITHIN REACH. ENDORSED CARE TO CARLO BULLARD.
[2022-02-01 20:00] VITALS: BP_SYST 132
--- NOTE | 2022-02-01 21:30 | NUR ---
MED FOR SLEEP GIVEN PER REQUEST. SEE EMAR
[2022-02-01] MEDS: TEMAZEPAM 15 MG CAPSULE PO PRN (21:35)
[2022-02-02] MEDS: MORPHINE 2 MG/ML INJ. SYRINGE IVP PRN ×4 (01:36→18:25)
--- NOTE | 2022-02-02 01:36 | NUR ---
MED FOR PAIN GIVEN. SEE EMAR
[2022-02-02 04:00] VITALS: BP_SYST 146
[2022-02-02] MEDS: NACL 0.9% 1,000 ML IV SCH ×2 (05:40→12:32)
--- NOTE | 2022-02-02 07:41 | NUR ---
RN OPENING NOTE REPORT WAS ENDORSED BY NIGHT NURSE. PATIENT IS AWAKE AND ALERT LAYING IN. DR. CARRASCO AT BEDSIDE. PATIENT SHOWS NO SIGNS OF ANY DISTRESS, BREATHING IS EQUAL AND NON LABORED. NO COMPLAINTS AT THIS TIME. EDUCATED TO USE CALL LIGHT FOR ASSISTANCE. NO OTHER NEEDS AT THIS TIME.
[2022-02-02 08:00] VITALS: BP_SYST 152
[2022-02-02 09:00] LABS: CALCIUM 9.3 mg/dL (8.4-11.0); CREATININE 0.81 mg/dL (0.55-1.30); PHOSPHORUS 2.7 mg/dL (2.7-4.5); POTASSIUM 3.6 mmol/L (3.5-5.1)
[2022-02-02] MEDS ORDERED: DOCUSATE SODIUM 100 MG CAPSULE PO SCH (09:00)
[2022-02-02] MEDS: POLYETHYLENE GLYCOL 3350, 17 GM/ POWD.PACK PO SCH (09:00)
--- NOTE | 2022-02-02 09:22 | NUR ---
Medication Patient scheduled medication given per order. Patient is awake and alert eating breakfast in bed. patient educated health information management director light for assistance. call light is with him. Patient has no complaints at this time.
[2022-02-02 12:16] VITALS: BP_SYST 143
--- NOTE | 2022-02-02 12:27 | NUR ---
PAIN MEDICATION PATIENTS COMPLAINING OF PAIN MEDICATED PER ORDER. PATIENT IS LAYING IN BED. PATIENT HAS NO OTHER NEEDS AT THIS TIME. LUNCH TRAY PROVIDED TO PATIENT
[2022-02-02] MEDS: ACETAMINOPHEN 325 MG TABLET PO PRN (15:59)
[2022-02-02 16:03] VITALS: BP_SYST 148
--- NOTE | 2022-02-02 16:06 | NUR ---
PAIN MEDICATION/ SCHEDULED MEDICATION PATIENTS SCHEDULED MEDICATION GIVEN PER ORDER. PATIENT COMPLAINS OF PAIN MEDICATED PER ORDER. PATIENT IS LAYING IN BED NO OTHER NEEDS AT THIS TIME.
[2022-02-02] MEDS ORDERED: BISACODYL 5 MG TABLET.DR (DULCOLAX) PO ONE (17:00)
[2022-02-02] MEDS ORDERED: GOLYTELY / COLYTE SOLUTION 4 LITERS PO ONE (18:00)
--- NOTE | 2022-02-02 18:29 | NUR ---
RN CLOSING NOTE PATIENT MEDICATED FOR PAIN. PATIENT STARTED ON GOLYTLEY. PATIENT ALSO SIGNED INFORMED CONSENT FOR COLONOSCOPY TOMORROW. PATIENT IS AWAKE AND ALERT NO OTHER NEEDS AT THIS TIME PATEINT HAS CALL LIGHT IS WITH HIM EDUCATED TO USE CALL LIGHT FOR ASSISTANCE.
--- NOTE | 2022-02-02 20:00 | NUR ---
PT TEACHING CONCERNING PROTOCOL FOR COLONOSCOPY. PT STATED "I WANT TO REST TONIGHT AND I WILL START DRINKING THIS STUFF IN THE MORNING."
--- NOTE | 2022-02-02 20:45 | NUR ---
PT OFFICIALLY STATED "REALLY CANCEL THIS PLEASE" WANIGAN CLERK INFORMED
--- NOTE | 2022-02-02 22:07 | NUR ---
PT STATED LEAVING AGAINST MEDICAL ADVICE. CONSENT SIGNED.
--- NOTE | 2022-02-02 22:23 | NUR ---
PT STATED SON IN LAW HERE TO TRANSPORT. IV REMOVED. SECURITY ESCORTED TO EXIT.
--- NOTE | 2022-02-02 22:41 | NUR ---
DYE COLORIST DYER STATED WILL INFORM TINO MONTAÑO
--- NOTE | 2022-02-11 11:35 | NUR ---
IV ADMINISTRATION END TIME (Observation Patients ONLY): Late entry: IV infusion of NSaline started at 12:01 on 01/30/22 and ended at 23:00 01/30/22. IVF of NSaline started at 23:11 on 01/30/22 and ended at 12:11 on 01/31/22 IVF of NSaline started at 12:11 on 01/31/22 and ended at 12:32 on 02/02/22 IVF of Nsaline started at 12:32 on 02/02/22 discontinued at 22:23 on 02/02/22 prior patient leaving against medical advise
== END 2022-02-02 22:23 | disposition left against medical advice (07) ==
LOC: SED 18:43 → SMU 22:55 → INTOOBSV 22:55 → SMU 23:03
PROVIDERS: ADMIT Internal Medicine; ATTEND Internal Medicine
DX: K56.7 Ileus, unspecified (principal); Z20.822 Contact with and (suspected) exposure to COVID-19; M79.7 Fibromyalgia; E87.1 Hypo-osmolality and hyponatremia; K59.09 Other constipation; E87.6 Hypokalemia; E78.00 Pure hypercholesterolemia, unspecified; N32.0 Bladder-neck obstruction; G89.4 Chronic pain syndrome; F11.20 Opioid dependence, uncomplicated; Z79.899 Other long term (current) drug therapy
CPT/HCPCS: 96361 ×5; 96375; 96376 ×4; 80053 ×3; 85025 ×4; 36415 ×5; 76376; 74176; 99285; 81003; 87426; 74018; 96365; 96366; 96372; 80048 ×2; 83735 ×2; 84132; 84100; J1885; J2060; G0378 ×5; J2270 ×4; J2405; J3480; J7050

== ENCOUNTER 2022-02-03 14:05 | Inpatient (IN) | payer OTHER ==
[~2022-02-03] VITALS: Ht 170.2 cm; Wt 80.8 kg
[~2022-02-03 14:05] MED LIST changes: +HYDR-3921 PO; -TAMS0.4C96 PO
[2022-02-03 15:00] VITALS: BP_SYST 188
[2022-02-03 17:53] LABS: BASOPHILS % (AUTO) 0.3 % (0.0-2.0); EOSINOPHILS % (AUTO) 0.1 % (0.0-4.0); HEMATOCRIT 29.5 % (36-54); LYMPHOCYTES # (AUTO) 2.5 K/uL (1.0-5.5); LYMPHOCYTES % (AUTO) 29.7 % (20.5-51.5); MEAN CORPUSCULAR HEMOGLOBIN 28 pg (27-31); MEAN CORPUSCULAR HGB CONC 34 % (32-36); MEAN CORPUSCULAR VOLUME 81 fL (79.0-98.0); MONOCYTES # (AUTO) 0.5 K/uL (0.0-1.0); MONOCYTES % (AUTO) 6.1 % (1.7-9.3); NEUTROPHILS # (AUTO) 5.4 K/uL (1.8-7.7); NEUTROPHILS % (AUTO) 63.8 % (40.0-70.0); PLATELET COUNT (AUTO) 577 K/uL (130-430); RED BLOOD CELL COUNT(AUTO) 3.63 MIL/uL (4.2-6.2); RED CELL DISTRIBUTION WIDTH 17.5 % (9.0-15.0); WHITE BLOOD COUNT (AUTO) 8.5 K/uL (4.8-10.8)
[2022-02-03 18:18] LABS: CALCIUM 9.4 mg/dL (8.4-11.0); CREATININE 0.83 mg/dL (0.55-1.30); POTASSIUM 3.4 mmol/L (3.5-5.1)
--- NOTE | 2022-02-03 20:25 | NUR ---
PT from home with abd pain, distention, and episodes of diarrhea. Pt reports this started last night after discharge. Pt is A&O X4, ambulatory and following commands. Pt was hungry and given some suagr free jello and pudding. Pt waiting in waiting room for bed.
--- NOTE | 2022-02-03 21:37 | NUR ---
Patient to ER bed 05 to gown for evaluation. Side rails up.
--- NOTE | 2022-02-03 22:00 | NUR ---
ASSUME CARE OF PT AT THIS TIME, PT C/O LOWER ABD PAIN, PT WAS ADMITTED TO THE FLOOR AND SIGNED AMA FROM THE FLOOR BECAUSE HE SAID HE WAS THERE FOR 5 DAYS AND NO ONE DID ANYTHING. PT WAS WAITING FOR COLONOSCOPY PROCEDURE IN HOSPITAL BUT DID NOT WANT TO WAIT ANYMORE. PT HAS FENTANYL/ MORPHINE PUMP IMPLANT IN LOWER RIGHT ABD PAIN. PT C/O ABD PAIN WITH VOMITTING AND DIARRHEA.
--- NOTE | 2022-02-04 00:09 | NUR ---
Admit bed requested Patient will be admitted to care of . Admitted to MS unit. Diagnosis: Intractable pain Inpatient (Yes or No) Y Covid Status: PENDING From Home (Yes or if No enter name of facility) Y
--- NOTE | 2022-02-04 02:45 | NUR ---
PT PLACED IN GURNEY FOR COMFORT, PT ASLEEP IN BED, NO DISTRESS OBSERVED.
--- NOTE | 2022-02-04 03:56 | NUR ---
ADMIT NOTE Received pt from ER with a diagnosis of Intractable Pain. Admission process initiated. Patient ambulated from [facility] in hallway to restroom and then to bed. Patient oriented to pain management, safety and call light-teach back done. Received SBAR report from CARLO Bo.
--- NOTE | 2022-02-04 04:08 | NUR ---
Patient will be admitted to care of BERNADETTE MATOS. Admitted to MED/SURG unit. Will go to room 124B. Belongings list completed. Complete and up to date summary report printed. SBAR report to be given at bedside with opportunity for questions.
[2022-02-04 04:16] VITALS: BP_SYST 164
--- NOTE | 2022-02-04 04:59 | NUR ---
Consultation Paged Reason for Consultation: Abdominal Pain Was consult called: Y Person who was notified: Cheri Consulting Physician: Dr. Bolanos (Dr. Schultz is air conditioning service technician) Ordering Physician: Eric Jiménez.
[2022-02-04 07:06] LABS: BASOPHILS % (AUTO) 0.5 % (0.0-2.0); EOSINOPHILS # (AUTO) 0.1 K/uL (0.0-0.4); EOSINOPHILS % (AUTO) 0.6 % (0.0-4.0); HEMATOCRIT 27.9 % (36-54); HEMOGLOBIN 9.9 g/dL (14.0-18.0); LYMPHOCYTES # (AUTO) 2.6 K/uL (1.0-5.5); LYMPHOCYTES % (AUTO) 24.7 % (20.5-51.5); MEAN CORPUSCULAR HEMOGLOBIN 29 pg (27-31); MEAN CORPUSCULAR HGB CONC 36 % (32-36); MEAN CORPUSCULAR VOLUME 80 fL (79.0-98.0); MONOCYTES # (AUTO) 0.6 K/uL (0.0-1.0); MONOCYTES % (AUTO) 5.7 % (1.7-9.3); NEUTROPHILS # (AUTO) 7.2 K/uL (1.8-7.7); NEUTROPHILS % (AUTO) 68.5 % (40.0-70.0); PLATELET COUNT (AUTO) 546 K/uL (130-430); RED BLOOD CELL COUNT(AUTO) 3.48 MIL/uL (4.2-6.2); RED CELL DISTRIBUTION WIDTH 17.5 % (9.0-15.0); WHITE BLOOD COUNT (AUTO) 10.5 K/uL (4.8-10.8)
[2022-02-04 07:37] LABS: CALCIUM 9.3 mg/dL (8.4-11.0); CREATININE 0.81 mg/dL (0.55-1.30)
[2022-02-04 07:43] LABS: ALBUMIN 3.8 g/dL (3.4-4.8); TOTAL BILIRUBIN 0.5 mg/dL (0.0-1.0)
[2022-02-04 08:00] VITALS: BP_SYST 110; BP_SYST 120
[2022-02-04 08:53] LABS: POTASSIUM 2.9 mmol/L (3.5-5.1)
[2022-02-04] MEDS: MORPHINE 2 MG/ML INJ. SYRINGE IVP PRN ×3 (08:57→21:34)
--- NOTE | 2022-02-04 09:57 | NUR ---
Dr. Morel at bedside with patient, F/C ordered due bladder being full (obstruction), KCL 2.9 and K scott ordered, patient condition goes unchanged, patient has decided to get colonoscopy, will wait for GI MD.
[2022-02-04] MEDS ORDERED: KCL 40 mEq in 100 mL (PREMIX) 100 ML IV ONE (10:00)
[2022-02-04] MEDS ORDERED: MAGNESIUM CITRATE 300 ML ORAL SOLUTION PO ONE (10:00)
[2022-02-04] MEDS ORDERED: POTASSIUM CHLORIDE 40 MEQ in NS 250 ML IV ONE (11:00)
[2022-02-04 12:00] VITALS: BP_SYST 110
[2022-02-04 16:00] VITALS: BP_SYST 120
[2022-02-04] MEDS ORDERED: BISACODYL 5 MG TABLET.DR (DULCOLAX) PO ONE (17:00)
[2022-02-04] MEDS ORDERED: GOLYTELY / COLYTE SOLUTION 4 LITERS PO ONE (18:00)
--- NOTE | 2022-02-04 19:18 | NUR ---
patient consented for laparoscopic robotic assisted b/l. inguinal hernia repair with mesh. Possible left hydrocelectomy and repair of recurrent ventral incisional hernia with possible mesh.
[2022-02-04 20:00] VITALS: BP_SYST 153
[2022-02-05] VITALS: BP_SYST 155
[2022-02-05] MEDS: MORPHINE 4 MG INJ. 4 MG/ML VIAL IVP PRN ×3 (00:19→08:54)
[2022-02-05 08:00] VITALS: BP_SYST 115
[2022-02-05 08:27] LABS: CREATININE 0.77 mg/dL (0.55-1.30)
[2022-02-05 08:33] LABS: PROTHROMBIN TIME 9.9 SECS (9.5-12.5)
[2022-02-05 08:44] LABS: POTASSIUM 2.5 mmol/L (3.5-5.1)
--- NOTE | 2022-02-05 09:30 | NUR ---
DR. JAMES NOTIFIED FOR POTASSIUM 2.5 AT THIS TIME, ANSWERING SERVICE ASKED TO LEAVE MESSAGE. CHARGE NURSE NOTIFIED
--- NOTE | 2022-02-05 10:28 | NUR ---
MD CALLED BACK AND POTASSIUM 40MEQ IVPB ERICK ORDERED ALONG WITH 40MEQ PO OF POTASSIUM AND FOUR HOURS LATER WILL GIVE ANOTHER PO KCL. MAGNESIUM LAB ORDERED AND IF BELOW 2.0 WILL ADMINISTER MAGNESIUM 2MG IVPB X 1. PATIENT CONTINUES TO DRINK GOLYTELY SLOWLY. ASKING FOR STRONGER PAIN MEDICATION. MD NOTIFIED. PAIN MEDICATION NOT ADJUSTED AT THIS TIME. THE PLAN FOR PATIENT WILL BE D/C AND PERFORM OUTPATIENT COLONOSCOPY.
[2022-02-05] MEDS ORDERED: POTASSIUM CHLORIDE 20 MEQ TAB.PRT.SR PO ONE ×2 (10:45→14:30)
[2022-02-05] MEDS ORDERED: KCL 40 mEq in 100 mL (PREMIX) 100 ML IV ONE (10:45)
--- NOTE | 2022-02-05 10:53 | NUR ---
GI LAB NOTIFIED REGARDING K LEVEL 2.5. PHARMACY NOTIFIED TO SEND K ERICK TO GI LAB TO BEGIN INFUSING
[2022-02-05] MEDS ORDERED: POTASSIUM CHLORIDE 40 MEQ in NS 250 ML IV ONE (11:00)
[2022-02-05] MEDS: fentaNYL CITRATE/PF 100 MCG/2 ML AMP ONE ×2 (11:24→11:27)
[2022-02-05] MEDS: MIDAZOLAM HCL 5 MG/5 ML VIAL ONE ×3 (11:24→11:34)
[2022-02-05] MEDS ORDERED: DOCUSATE SODIUM 100 MG CAPSULE PO PRN (12:00)
[2022-02-05] MEDS ORDERED: POLYETHYLENE GLYCOL 3350, 17 GM/ POWD.PACK PO ONE (12:00)
--- NOTE | 2022-02-05 13:00 | NUR ---
PATIENT RETURNED FROM GI LAB AT THIS TIME. ALERT AND ORIENTED BUT SLEEPY, RESPONDS TO VERBAL STIMULUS. DENIES PAIN. PATIENT POTASSIUM IV DRIP CONTINUES TO INFUSE AT ORDERED RATE. PATIENT TOLERATING. WILL CONTINUE TO MONITOR THE PATIENT. PATIENT WILL BE DISCHARGED ONCE POTASSIUM COMPLETED.
[2022-02-05] MEDS ORDERED: DOCU250C71 PO (13:44)
--- NOTE | 2022-02-05 14:03 | NUR ---
PATIENT UP TO RESTROOM WITH STEADY GAIT AND ONE ASSIST. PATIENT ASSISTED WITH PARTIAL SPONGE BATH AND GIVING CLEAN LINEN AND GOWN. PATIENT BACK TO BED IN STABLE CONDITION, WILL CALL HIS SON TO PICK HIM UP ONCE DISCHARGED, PT. UPDATED WITH PLAN OF CARE, DENIES PAIN AT THIS TIME.
[2022-02-05 16:00] VITALS: BP_SYST 130
--- NOTE | 2022-02-05 17:02 | NUR ---
PATIENT AWAKE ALERT AND ORIENTED X 3, LINEN CHANGED, AND PATIENT WASHED UP ALONE. PATIENT STATES HE IS NOT GOING TO HAVE A RIDE TONIGHT BUT TOMORROW SINCE SON AND DAUGHTER IS WORKING. CHARGE NURSE NOTIFIED AT THIS TIME.
--- NOTE | 2022-02-05 17:30 | NUR ---
NOTIFIED THAT SON IN LAW WANTS TO SEE THE DR. MONTAÑO AT [facility]URSING STATION WORKING ON ANOTHER PATIENT AND DISCHARGE. SON IN LAW AT BEDSIDE WAITING FOR MD STATING HE DOESN'T WANT TO TAKE PATIENT HOME AND FEELS HE DOESNT LOOK LIKE HE IS IN GOOD CONDITION TO GO HOME. PATIENT VSS, GIVEN INSTRUCTIONS ON F/C CARE AT HOME, GIVEN D/C INSTRUCTIONS.
[2022-02-05 17:46] VITALS: BP_SYST 120
--- NOTE | 2022-02-05 18:57 | NUR ---
PATIENT'S SON IN LAW LEFT AT THIS TIME. STATED THAT HE HAD TO BE BACK AT WORK AND HE WAS NOT TAKING HIS DAD HOME IN HIS CONDITION. MD NOTIFIED AND NOW AT BEDSIDE.
[2022-02-05] MEDS ORDERED: HYDROcodone/ACETAMIN 7.5-325 MG TAB PO PRN (19:00)
--- NOTE | 2022-02-05 19:03 | NUR ---
PATIENT WILL STAY ACCORDING TO MD AT THIS TIME. MORPHINE D/C'D AT THIS TIME AND PATIENT WILL RECEIVE NORCO PO EVERY 6 HOURS.
[2022-02-05 20:00] VITALS: BP_SYST 165
--- NOTE | 2022-02-05 20:00 | NUR ---
Opening Patient resting in bed, unlabored breathing on room air. Greenberg catheter in place draining yellow urine. Call light in reach, bed low and locked.
[2022-02-06 00:30] VITALS: BP_SYST 165
--- NOTE | 2022-02-06 01:04 | NUR ---
Patient complaining of return of pain after Morton. BP also elevated at 165/87. Informed Dr. Molina of patient's BP and report of pain. Received order to increase dose of Morton with one time dose now, and for hydralazine IVP PRN for SBP>160 if BP doesn't come down with pain medication.
[2022-02-06] MEDS ORDERED: hydrALAZINE HCL 20 MG/ML VIAL IVP PRN (01:30)
[2022-02-06] MEDS ORDERED: HYDROcodone/ACETAMIN 10-325 MG TAB PO ONE (01:30)
[2022-02-06] MEDS ORDERED: HYDROcodone/ACETAMIN 10-325 MG TAB PO PRN (01:30)
--- NOTE | 2022-02-06 01:42 | NUR ---
PRN [place] given for complaint of pain. Nonpharmacological measures also encouraged.
--- NOTE | 2022-02-06 04:45 | NUR ---
Rounds Patient sleeping in bed, unlabored breathing on room air.
--- NOTE | 2022-02-06 07:43 | NUR ---
Closing Patient sleeping in bed, unlabored breathing on room air. Greenberg catheter patent draining yellow urine. PRN Butler given twice during night with some relief. Call light in reach, exit alarm on.
[2022-02-06 08:00] VITALS: BP_SYST 152
[2022-02-06] MEDS ORDERED: POLYETHYLENE GLYCOL 3350, 17 GM/ POWD.PACK PO SCH (09:00)
[2022-02-06] MEDS ORDERED: POTASSIUM CHLORIDE 20 MEQ TAB.PRT.SR PO ONE (10:30)
[2022-02-06] MEDS ORDERED: GOLYTELY / COLYTE SOLUTION 4 LITERS PO ONE (10:45)
--- NOTE | 2022-02-06 11:42 | NUR ---
Pick Up And Delivery Driver NEWSPAPER CLIPPER called and spoke to son-in-law William who stated he came yesterday, but pt was not ready to leave the hospital. Zaid felt pt. needed to be transferred to a SNF like last time. NEWSPAPER CLIPPER educated Zaid on necessity and if the PT and Dr. cannot state there is a demonstrated skilled need, HCP is not going to pay to have pt. transferred and stay at a SNF. Zaid went on to say he cannot care for pt. at home since he works. NEWSPAPER CLIPPER stated she is happy to provide him with some resources such as [facility] to help assist with care for a out of pocket fee. NEWSPAPER CLIPPER went on to say since pt. was discharged yesterday, Zaid will begin to get billing from 02/05 on. Zaid stated he will have to drop everything to come mixing picker tender pt and will come in the next 30 min. TYLER Miles went the the Rn station to relay this message and asked to have pt. ready. NEWSPAPER CLIPPER provided Rn with resources to assist Zaid. NEWSPAPER CLIPPER will remain available as needed. Addendum: 02/06/22 at 1238 by Marium FLORENCE Pick Up And Delivery Driver NEWSPAPER CLIPPER met son-in-law Tyrone who was getting pt. dressed for d/c. NEWSPAPER CLIPPER handed Zaid some resources for Skilled Nursing including [facility] and similar agency contacts. NEWSPAPER CLIPPER gave Zaid her card if he needed to speak with her after discharge.
== END 2022-02-06 12:15 | disposition home or self-care (01) | DRG 392 ==
LOC: SED 14:05 → SMU 02-04 00:11
PROVIDERS: ADMIT Internal Medicine; ATTEND Internal Medicine
PROC: 0T9B70Z Drainage of Bladder with Drainage Device, Via Natural or Artificial Opening (ICD-10-PCS; 2022-02-05)
PROC: 0DBK8ZZ Excision of Ascending Colon, Via Natural or Artificial Opening Endoscopic (ICD-10-PCS; principal; 2022-02-05 10:30)
PROC: 0DBP8ZZ Excision of Rectum, Via Natural or Artificial Opening Endoscopic (ICD-10-PCS; 2022-02-05 10:30)
DX: K59.00 Constipation, unspecified (principal); E87.1 Hypo-osmolality and hyponatremia; K62.1 Rectal polyp; K63.5 Polyp of colon; N40.0 Benign prostatic hyperplasia without lower urinary tract symptoms; K64.8 Other hemorrhoids; E78.5 Hyperlipidemia, unspecified; F41.9 Anxiety disorder, unspecified; F32.A Depression, unspecified; Z20.822 Contact with and (suspected) exposure to COVID-19
CPT/HCPCS: 36415; 45384; 45385; 74018; 80048; 80053; 83880; 85025; 85610-TC; 87081; 88305; 99285; J2250; J2270; J3010; J3480; J7050

== ENCOUNTER 2022-02-10 13:10 | Emergency (ER) | payer OTHER ==
[~2022-02-10] VITALS: Ht 170.2 cm; Wt 79.4 kg
[~2022-02-10 13:10] MED LIST changes: +DOCU250C71 PO
[2022-02-10 13:12] VITALS: BP_SYST 201
--- NOTE | 2022-02-10 13:22 | NUR ---
Placed in room 3 . Placed on nuclear monitoring technician, blood pressure machine and pulse oximeter. To gown for exam. Side rails up. Report given to CARLO OROZCO.
--- NOTE | 2022-02-10 13:23 | NUR ---
RECEIVED PT FROM CARLO ANTHONY. PT B/P , DR. ANTHONY MADE AWARE. PT HAS C/O AB PAIN GENERALIZED AND RADIATES TO BACK. PT HAS ABDOMINAL MORPHINE PUMP PLACED FOR CHRONIC AB PAIN. PT WAS SEEN FOR SAME ISSUE LAST WEEK HERE AT [facility]. RESP E/U. LUNG SOUNDS DIMISHED BILATERALLY ON R/A, O2 SAT 98%. ABDOMEN SOFT, TENDER, NONDISTENDED. BOWEL SOUNDS ACTIVE X4 QUADS. PT HAS C/O NAUSEA, DR. ANTHONY MADE AWARE. SKIN CDI, WARM, CAP REFILL < 3 SECS, NO PERIPHERAL EDEMA. SIDERAILS UP X2.
--- NOTE | 2022-02-10 13:26 | NUR ---
DR. ANTHONY AT BEDSIDE TO ASSESS PT.
[2022-02-10] MEDS ORDERED: KETOROLAC TROMETHAMINE 30 MG VIAL IVP ONE (13:30)
[2022-02-10] MEDS ORDERED: ONDANSETRON HCL 4 MG/2 ML VIAL IVP ONE (13:30)
[2022-02-10 14:08] LABS: CALCIUM 9.4 mg/dL (8.4-11.0); CREATININE 0.86 mg/dL (0.55-1.30); POTASSIUM 3.4 mmol/L (3.5-5.1)
[2022-02-10 14:09] LABS: BASOPHILS # (AUTO) 0.1 K/uL (0.0-0.2); BASOPHILS % (AUTO) 0.5 % (0.0-2.0); EOSINOPHILS % (AUTO) 0.2 % (0.0-4.0); HEMATOCRIT 30.4 % (36-54); LYMPHOCYTES % (AUTO) 13.4 % (20.5-51.5); MEAN CORPUSCULAR VOLUME 82 fL (79.0-98.0); MONOCYTES # (AUTO) 0.8 K/uL (0.0-1.0); MONOCYTES % (AUTO) 5.2 % (1.7-9.3); NEUTROPHILS # (AUTO) 12.1 K/uL (1.8-7.7); NEUTROPHILS % (AUTO) 80.7 % (40.0-70.0); PLATELET COUNT (AUTO) 743 K/uL (130-430); RED BLOOD CELL COUNT(AUTO) 3.72 MIL/uL (4.2-6.2); RED CELL DISTRIBUTION WIDTH 17.2 % (9.0-15.0); WHITE BLOOD COUNT (AUTO) 14.9 K/uL (4.8-10.8)
[2022-02-10 14:15] LABS: ALBUMIN 3.9 g/dL (3.4-4.8); TOTAL BILIRUBIN 0.5 mg/dL (0.0-1.0)
[2022-02-10] MEDS ORDERED: hydrALAZINE HCL 20 MG/ML VIAL IVP ONE (14:15)
[2022-02-10 15:17] LABS: BILIRUBIN,URINE NEGATIVE (NEGATIVE); BLOOD, URINE 3+ (NEGATIVE); CLARITY/URINE SL CLOUDY (CLEAR); COLOR,URINE YELLOW (YELLOW); GLUCOSE,URINE NEGATIVE (NEGATIVE); KETONES,URINE NEGATIVE (NEGATIVE); LEUKOCYTE ESTERASE ,URINE 2+ (NEGATIVE); NITRITE, URINE NEGATIVE (NEGATIVE); PROTEIN URINE 1+ (NEGATIVE); UROBILINOGEN,URINE 0.2 (0.2-1.0)
[2022-02-10 15:38] LABS: BACTERIA,URINE RARE /HPF (None Seen); RBC,URINE >100 /HPF (0-3)
[2022-02-10 15:39] LABS: MUCUS,URINE 1+ /LPF (None Seen)
[2022-02-10] MEDS ORDERED: cefTRIAXone 1 GM VIAL IM ONE (16:00)
--- NOTE | 2022-02-10 16:04 | NUR ---
hydralazine 10mg ivp given for sbp in 106s. Pt rossi cath removed intact, 10ml removed for balloon. New rossi cath 16 fr placed with 10ml placed in balloon, 30 reddish yellow urine drained to rossi bag. Pt tolerated procedure well. Pt educated on rossi cath care and pt made aware to keep rossi bag below bladder. Pt verbalized understanding.
[2022-02-10] MEDS ORDERED: cefTRIAXone 1 GM IVPB PREMIX 50 ML IV ONE (16:15)
[2022-02-10] MEDS ORDERED: CEFU250T85 PO (16:41)
[2022-02-10] MEDS ORDERED: IBUP-1969 PO (16:43)
[2022-02-10] MEDS ORDERED: ACET-2634 PO (16:43)
--- NOTE | 2022-02-10 17:11 | NUR ---
Patient given written and verbal discharge instructions and verbalizes understanding. ER MD discussed with patient the results and treatment provided. Patient in stable condition. ID arm band removed. IV catheter removed intact and dressing applied, no active bleeding. Rx of acetaminophen, ceftin, ibuprofen given. Patient educated on pain management and to follow up with PMD. Pain Scale 2/10. Opportunity for questions provided and answered. Medication side effect fact sheet provided. Pt's IV ABX completed, B/P now 120/45. Pt ambulated to [facility] and was driven home by daughter.
[2022-02-10 17:19] VITALS: BP_SYST 120
== END 2022-02-10 17:15 | disposition home or self-care (01) ==
LOC: SED 13:10
DX: R10.84 Generalized abdominal pain (principal); R11.0 Nausea; K21.9 Gastro-esophageal reflux disease without esophagitis; Z79.899 Other long term (current) drug therapy
CPT/HCPCS: 99284; 74176; 96365; 96375; 80053; 81000; 83690; 85025; 87086; 36415; 76376; J0696; J0360; J1885; J2405

== ENCOUNTER → 2022-02-26 15:46 | Emergency (ER) | payer OTHER ==
[~2022-02-26] VITALS: Ht 172.7 cm; Wt 77.1 kg
[~2022-02-26 15:46] MED LIST changes: +ACET-2634 PO; +CEFU250T85 PO; +IBUP-1969 PO
--- NOTE | 2022-02-26 15:46 | NUR ---
PT BROUGHT IN BY [facility] AND DURING TRIAGE INTERVIEW, HAD ME SPEAK WITH PTS SON IN LAW. SON IN LAW STATES THAT PT WAS TO GO TO [facility]. PT REFUSING ALL TRIAGE QUESTIONS. SON IN LAW TOLD PT TO NOT BE CHECKED IN AND GO TO FRONT OF HOSPITAL, HE IS CALLING AN UBER FOR PT. PT ASSISTED TO WHEELCHAIR AND PLACED IN FRONT OF HOSPITAL PER PTS WISHES. DR ANTHONY AWARE OF PT LWBS
== END | disposition left against medical advice (07) ==
LOC: SED 15:46
DX: R53.1 Weakness (principal); Z53.21 Procedure and treatment not carried out due to patient leaving prior to being seen by health care provider

== ENCOUNTER 2023-05-31 19:30 | Emergency (ER) | payer OTHER ==
[~2023-05-31] VITALS: Ht 177.8 cm; Wt 77.1 kg
[2023-05-31 19:44] VITALS: BP_SYST 141; PULSE 86; RESP 18; TEMP 98.3; O2SAT 98
== END 2023-05-31 20:40 | disposition left against medical advice (07) ==
LOC: SED 19:30
DX: M79.10 Myalgia, unspecified site (principal); R11.10 Vomiting, unspecified; R53.1 Weakness; Z53.21 Procedure and treatment not carried out due to patient leaving prior to being seen by health care provider
CPT/HCPCS: 99281

== ENCOUNTER 2024-02-22 13:45 | Emergency (ER) | payer OTHER ==
[~2024-02-22] VITALS: Ht 167.6 cm; Wt 85.3 kg
[~2024-02-22 13:45] MED LIST changes: -VENL37.55 PO; +VENL37.58 PO
[2024-02-22 14:03] VITALS: BP_SYST 153; PULSE 54; RESP 18; TEMP 98.3; O2SAT 98
[2024-02-22 14:50] LABS: BASOPHILS # (AUTO) 0.1 K/uL (0.0-0.2); BASOPHILS % (AUTO) 0.7 % (0.0-2.0); EOSINOPHILS # (AUTO) 1.1 K/uL (0.0-0.4); EOSINOPHILS % (AUTO) 12.9 % (0.0-4.0); HEMATOCRIT 39.4 % (36-54); HEMOGLOBIN 13.4 g/dL (14.0-18.0); LYMPHOCYTES % (AUTO) 36.8 % (20.5-51.5); MEAN CORPUSCULAR HEMOGLOBIN 31 pg (27-31); MEAN CORPUSCULAR HGB CONC 34 % (32-36); MEAN CORPUSCULAR VOLUME 90 fL (79.0-98.0); MONOCYTES # (AUTO) 0.5 K/uL (0.0-1.0); MONOCYTES % (AUTO) 6.6 % (1.7-9.3); NEUTROPHILS # (AUTO) 3.5 K/uL (1.8-7.7); PLATELET COUNT (AUTO) 342 K/uL (130-430); RED BLOOD CELL COUNT(AUTO) 4.38 MIL/uL (4.2-6.2); RED CELL DISTRIBUTION WIDTH 13.8 % (9.0-15.0); WHITE BLOOD COUNT (AUTO) 8.2 K/uL (4.8-10.8)
[2024-02-22 15:09] LABS: ALANINE AMINOTRANSFERASE 12 U/L (12-78); ANION GAP 6 (5-15); ASPARTATE AMINOTRANSFERASE 15 U/L (10-37); CARBON DIOXIDE 32 mmol/L (23-29); CHLORIDE 105 mmol/L (98-107); CREATININE 1.27 mg/dL (0.55-1.30); GFR AFRICAN AMERICAN 73 mL/min (>90); GLUCOSE 98 mg/dL (74-106); POTASSIUM 4.6 mmol/L (3.5-5.1); SODIUM SERUM 143 mmol/L (136-145); TOTAL BILIRUBIN 0.4 mg/dL (0.0-1.0); TOTAL PROTEIN, SERUM 7.7 g/dL (6.4-8.3); UREA NITROGEN, BLOOD 21 mg/dL (8-21)
[2024-02-22 15:10] LABS: GFR NON AFRICAN-AMERICAN 60 mL/min (>90); PROTHROMBIN TIME 10.3 SECS (9.5-12.5)
[2024-02-22 15:21] LABS: BILIRUBIN,DIRECT 0.1 mg/dL (0.0-0.3); LIPASE 57 U/L (16-77)
[2024-02-22] MEDS ORDERED: POLY17PO4 PO (15:48)
[2024-02-22 16:11] VITALS: BP_SYST 153; PULSE 54; RESP 18; TEMP 98.3; O2SAT 98
[2024-02-22 16:36] LABS: CHOLESTEROL 276 mg/dL (<200)
== END 2024-02-22 16:18 | disposition home or self-care (01) ==
LOC: SED 13:45
DX: K59.00 Constipation, unspecified (principal); K21.9 Gastro-esophageal reflux disease without esophagitis; R14.0 Abdominal distension (gaseous); E78.00 Pure hypercholesterolemia, unspecified; F32.A Depression, unspecified; G89.29 Other chronic pain; Z79.899 Other long term (current) drug therapy; Z79.2 Long term (current) use of antibiotics
CPT/HCPCS: 36415; 74018; 80048; 80076; 82465; 83690; 83880; 84484; 85025; 85610; 85730; 99284